=== PATIENT | male | born 1945 | race Caucasian/White ===

== ENCOUNTER 2019-09-01 16:37 | Emergency (ER) | payer OTHER ==
[~2019-09-01] VITALS: Ht 175.3 cm; Wt 90.7 kg
[2019-09-01 18:17] LABS: Basophils # (auto) 0 10 ^3/uL (0-0.2); Basophils % (auto) 0.5 % (0.0-2.0); Eosinophils # (auto) 0 10 ^3/uL (0-0.8); Eosinophils % (auto) 0.5 % (0.0-7.0); Hematocrit 43.2 % (41.0-53.0); Hemoglobin 14.7 g/dL (13.5-17.5); Lymphocytes % (auto) 12.8 % (10.0-50.0); Mean Corpuscular Hemoglobin 31.3 pg (28.0-32.0); Monocytes # (auto) 0.5 10 ^3/uL (0-1.3); Monocytes % (auto) 6.1 % (0.0-12.0); Neutrophils # (auto) 6.1 10 ^3/uL (1.6-8.6); Neutrophils % (auto) 80.1 % (37.0-80.0); Nucleated Red Blood Cells % 0.1 %; Platelet Count (auto) 135 10^3/uL (140-450); Red Cell Distribution Width 13.1 % (11.8-14.3); White Blood Cell 7.6 10^3/uL (4.4-10.8)
[2019-09-01 18:32] LABS: Albumin 3.5 g/dL (3.4-5.0); Anion Gap 4 (5-15); Blood Urea Nitrogen 21 mg/dL (7-18); Calcium 8.6 mg/dL (8.5-10.1); Carbon Dioxide 29 mmol/L (21-32); Chloride 106 mmol/L (98-107); Glucose 168 mg/dL (74-106); INR 1.11 (0.9-1.15); Partial Thromboplastin Time 26.5 sec (23.64-32.05); Potassium 3.5 mmol/L (3.5-5.1); Sodium 139 mmol/L (136-145)
[2019-09-01 18:34] LABS: Alanine Aminotransferase 15 U/L (16-61); Aspartate Aminotransferase 16 U/L (15-37); BUN/Creatinine Ratio 21.4; GFR African American 96 mL/min; GFR Non-African American 79 mL/min
[2019-09-01 18:39] LABS: Alkaline Phosphatase 83 U/L (45-117); Bilirubin, Total 0.8 mg/dL (0.2-1.0); Total Protein 7.9 g/dL (6.4-8.2)
[2019-09-01 22:48] VITALS: BP 138/88
[2019-09-01] MEDS ORDERED: LIDOCAINE VISCOUS 2% 15ML UD MT ONE (23:00)
[2019-09-01] MEDS ORDERED: ALUM & MAG HYDROX-SIMETH LIQ(MAALOX) 30 ML PO ONE (23:00)
[2019-09-01] MEDS ORDERED: FAMOTIDINE 20 MG TAB PO ONE (23:00)
== END 2019-09-01 23:39 | disposition home or self-care (01) ==
LOC: ER 16:37 → EDBD 16:37 → ER 23:39
DX: R10.13 Epigastric pain (principal); I10 Essential (primary) hypertension; E78.5 Hyperlipidemia, unspecified; E11.9 Type 2 diabetes mellitus without complications
CPT/HCPCS: 36415; 71045; 80053; 83880; 84484; 85025; 85610; 85730; 93005

== ENCOUNTER 2019-12-12 11:29 | Emergency (ER) | payer OTHER ==
[~2019-12-12] VITALS: Ht 172.7 cm; Wt 81.6 kg
[2019-12-12 11:44] VITALS: BP 165/93
[2019-12-12] MEDS ORDERED: SODIUM CHLORIDE 0.9% 1,000 ML IVB ONE (11:47)
[2019-12-12 12:56] LABS: Basophils # (auto) 0 10 ^3/uL (0-0.2); Basophils % (auto) 0.3 % (0.0-2.0); Eosinophils # (auto) 0 10 ^3/uL (0-0.8); Eosinophils % (auto) 0.4 % (0.0-7.0); Hematocrit 41.7 % (41.0-53.0); Lymphocytes # (auto) 1.2 10 ^3/uL (0.4-5.4); Lymphocytes % (auto) 15.1 % (10.0-50.0); Mean Corpuscular Hemoglobin 30.9 pg (28.0-32.0); Mean Corpuscular Hgb Conc. 33.5 g/dL (32.0-36.0); Mean Corpuscular Volume 92.3 fL (80.0-100.0); Monocytes # (auto) 0.4 10 ^3/uL (0-1.3); Monocytes % (auto) 5.5 % (0.0-12.0); Neutrophils # (auto) 6.2 10 ^3/uL (1.6-8.6); Neutrophils % (auto) 78.7 % (37.0-80.0); Nucleated Red Blood Cells % 0.1 %; Platelet Count (auto) 138 10^3/uL (140-450); Red Blood Cells 4.51 10^6/uL (4.5-5.90); Red Cell Distribution Width 13.6 % (11.8-14.3); White Blood Cell 7.8 10^3/uL (4.4-10.8)
[2019-12-12 13:05] LABS: Partial Thromboplastin Time 27.3 sec (23.64-32.05)
[2019-12-12 13:15] LABS: Albumin 3.3 g/dL (3.4-5.0); Anion Gap 2 (5-15); Blood Urea Nitrogen 13 mg/dL (7-18); Calcium 8.1 mg/dL (8.5-10.1); Carbon Dioxide 33 mmol/L (21-32); Chloride 105 mmol/L (98-107); Glucose 208 mg/dL (74-106); Lipase 69 U/L (73-393); Sodium 140 mmol/L (136-145)
[2019-12-12 13:21] LABS: Alanine Aminotransferase 19 U/L (16-61); Alkaline Phosphatase 75 U/L (45-117); Aspartate Aminotransferase 15 U/L (15-37); Bilirubin, Total 0.2 mg/dL (0.2-1.0); GFR African American 93 mL/min; GFR Non-African American 77 mL/min; Total Protein 7.1 g/dL (6.4-8.2)
== END 2019-12-12 15:26 | disposition home or self-care (01) ==
LOC: EDBD 11:29 → ER 11:29
DX: K80.20 Calculus of gallbladder without cholecystitis without obstruction (principal); E86.0 Dehydration; E11.9 Type 2 diabetes mellitus without complications; K21.9 Gastro-esophageal reflux disease without esophagitis
CPT/HCPCS: 36415; 74176; 80053; 83690; 84484; 85025; 85610; 85730; 93005; 96360; 99285; J7030

== ENCOUNTER 2020-02-13 16:47 | Inpatient (IN) | payer OTHER ==
[~2020-02-13] VITALS: Ht 175.3 cm; Wt 78.7 kg
[2020-02-13 17:56] LABS: Basophils # (auto) 0 10 ^3/uL (0-0.2); Basophils % (auto) 0.4 % (0.0-2.0); Eosinophils # (auto) 0 10 ^3/uL (0-0.8); Eosinophils % (auto) 0.5 % (0.0-7.0); Hematocrit 45.6 % (41.0-53.0); Hemoglobin 15.2 g/dL (13.5-17.5); Lymphocytes # (auto) 1.5 10 ^3/uL (0.4-5.4); Lymphocytes % (auto) 17.2 % (10.0-50.0); Mean Corpuscular Hemoglobin 31.2 pg (28.0-32.0); Mean Corpuscular Hgb Conc. 33.3 g/dL (32.0-36.0); Mean Corpuscular Volume 93.8 fL (80.0-100.0); Monocytes # (auto) 0.6 10 ^3/uL (0-1.3); Monocytes % (auto) 7.4 % (0.0-12.0); Neutrophils # (auto) 6.4 10 ^3/uL (1.6-8.6); Neutrophils % (auto) 74.5 % (37.0-80.0); Nucleated Red Blood Cells % 0.8 %; Platelet Count (auto) 172 10^3/uL (140-450); Red Blood Cells 4.86 10^6/uL (4.5-5.90); Red Cell Distribution Width 13.2 % (11.8-14.3); White Blood Cell 8.6 10^3/uL (4.4-10.8)
[2020-02-13 18:12] LABS: Albumin 3.8 g/dL (3.4-5.0); BUN/Creatinine Ratio 18.5; Calcium 8.9 mg/dL (8.5-10.1); Magnesium 2.2 mg/dL (1.6-2.6); Potassium 3.7 mmol/L (3.5-5.1)
[2020-02-13 18:15] LABS: INR 1.02 (0.9-1.15); Partial Thromboplastin Time 26.4 sec (23.0-31.2)
[2020-02-13 18:17] LABS: Bilirubin, Total 0.6 mg/dL (0.2-1.0); Total Protein 8.1 g/dL (6.4-8.2)
[2020-02-13 19:16] LABS: Urine Bacteria NONE SEEN /hpf (None Seen); Urine Blood Negative /uL (Negative); Urine Hyaline Cast MOD /lpf (0 - 2); Urine Mucus FEW (None Seen); Urine WBC 1 /hpf (0 - 3)
[2020-02-13] MEDS ORDERED: levoFLOXacin 750MG 150 ML IV ONE (20:00)
[2020-02-13] MEDS ORDERED: ONDANSETRON HCL 4 MG/2 ML VIAL IV ONE (20:15)
[2020-02-13] MEDS ORDERED: MORPHINE SULFATE 4 MG/ML SYR/VIAL IV ONE (20:15)
[2020-02-13 20:19] LABS: CRP High Sensitivity 0.021 mg/dL (< 0.3)
[2020-02-13] MEDS ORDERED: DEXTROSE (50%) 50ML SYRG IV PRN (21:00)
[2020-02-13] MEDS ORDERED: MORPHINE SULF INJ 2 MG/ML SYRINGE 1ML IV PRN (21:00)
[2020-02-13] MEDS ORDERED: SODIUM CHLORIDE 0.9% 500 ML IV ONE (21:00)
[2020-02-13] MEDS ORDERED: TEMAZEPAM 15 MG CAP PO PRN (21:00)
[2020-02-13] MEDS ORDERED: NITROGLYCERIN 0.4 MG SL TAB SL PRN (21:00)
[2020-02-13] MEDS ORDERED: ACETAMINOPHEN 325 MG TAB PO PRN (21:00)
[2020-02-13] MEDS ORDERED: ONDANSETRON HCL 4 MG/2 ML VIAL IV PRN (21:00)
[2020-02-13 22:30] VITALS: BP 133/88
--- NOTE | 2020-02-13 22:30 | NUR ---
Telemetry admit from ER TORRESSHARDA admitted to Telemetry unit. Patient oriented to Carlita Belcher RN primary RN, unit, room, bed, and unit policies regarding patient care and visiting hours. Patient now on continuous telemetry monitoring, tele box #38 and telemetry reading on arrival to unit is SR. Patient placed on bedside oxygen 2L NC, weighed by bedscale and encouraged to call if they need something. All questions and concerns addressed, patient verbalized understanding. Fall and safety precautions in place. Call light within reach.
[2020-02-13] MEDS: ATORVASTATIN 20 MG TAB PO SCH (22:51)
[2020-02-13] MEDS: ACCU-CHEK COMFORT CURVE STRIP VI SCH (22:51)
[2020-02-13] MEDS: InsuLIN REG 1unit/0.01ml Soln (100units/ml) SC SCH (23:06)
[2020-02-14 05:27] VITALS: BP 109/71
[2020-02-14 05:31] LABS: Basophils # (auto) 0 10 ^3/uL (0-0.2); Basophils % (auto) 0.7 % (0.0-2.0); Eosinophils # (auto) 0.1 10 ^3/uL (0-0.8); Eosinophils % (auto) 1.2 % (0.0-7.0); Hematocrit 42.6 % (41.0-53.0); Hemoglobin 14.2 g/dL (13.5-17.5); Lymphocytes # (auto) 1.8 10 ^3/uL (0.4-5.4); Lymphocytes % (auto) 26.5 % (10.0-50.0); Mean Corpuscular Hemoglobin 31.5 pg (28.0-32.0); Mean Corpuscular Hgb Conc. 33.3 g/dL (32.0-36.0); Mean Corpuscular Volume 94.8 fL (80.0-100.0); Monocytes # (auto) 0.6 10 ^3/uL (0-1.3); Monocytes % (auto) 8.5 % (0.0-12.0); Neutrophils # (auto) 4.2 10 ^3/uL (1.6-8.6); Neutrophils % (auto) 63.1 % (37.0-80.0); Nucleated Red Blood Cells % 0.1 %; Platelet Count (auto) 136 10^3/uL (140-450); Red Cell Distribution Width 13.4 % (11.8-14.3); White Blood Cell 6.7 10^3/uL (4.4-10.8)
[2020-02-14 05:45] LABS: BUN/Creatinine Ratio 26.4; Calcium 8.3 mg/dL (8.5-10.1); Potassium 3.9 mmol/L (3.5-5.1)
[2020-02-14] MEDS: InsuLIN REG 1unit/0.01ml Soln (100units/ml) SC SCH ×4 (06:28→22:23)
[2020-02-14] MEDS: ACCU-CHEK COMFORT CURVE STRIP VI SCH ×4 (06:28→22:19)
--- NOTE | 2020-02-14 07:35 | NUR ---
Opening shift note Assumed care of patient from NOC RN Carlita. Patient is AOX4 no s/s of distress noted. Bed is in lowest locked position, side rails up x2, and call light is within reach. Updated patient on plan of care and patient verbalized understanding. Will continue to monitor q1hr and PRN.
[2020-02-14 08:48] VITALS: BP 96/67
[2020-02-14] MEDS: ASPirin 81 mg TAB PO SCH (09:50)
[2020-02-14] MEDS: levoFLOXacin 500MG 100 ML IV SCH (09:50)
--- NOTE | 2020-02-14 11:59 | NUR ---
complaint of pain patient stated having a pain level of 5/10. Will notify MD of higher level of pain, patient does not have PRN pain medications for higher level of pain. Will continue to monitor.
[2020-02-14 12:57] VITALS: BP 112/85
[2020-02-14] MEDS ORDERED: PANTOPRAZOLE 40 MG TAB PO ONE (15:15)
[2020-02-14] MEDS ORDERED: ALBUTEROL SULF 2.5 MG/0.5ML(0.5%) NEB SOLN NEB PRN (15:15)
[2020-02-14] MEDS ORDERED: ALUM & MAG HYDROX-SIMETH LIQ(MAALOX) 30 ML PO PRN ×2 (15:15→15:45)
--- NOTE | 2020-02-14 16:38 | NUR ---
Care endorsed. report given to ANNAMARIE Pulliam.
[2020-02-14 16:50] VITALS: BP 122/82
--- NOTE | 2020-02-14 17:00 | NUR ---
PT ARRIVED FROM [facility] THE COVID UNIT VIA WHEEL CHAIR, ROOM AIR, NO DISTRESS NOTED, TO ROOM 223A, PT WAS ABLE TO GET UP AND GET IN BED, DENIES ANY CHEST PAIN OR SHORTNESS OF BED, ROOM ORIENTATION GIVEN TO PT, CALL LIGHT WITHIN REACH
--- NOTE | 2020-02-14 17:02 | NUR ---
Transfer Patient was transferred to [facility] room 223a via wheelchair, accompanied by ANNAMARIE Pulliam. No s/s of distress or SOB noted at time of departure.
--- NOTE | 2020-02-14 17:15 | NUR ---
BM PT WAS ABLE TO GET OUT OF BED AND AMBULATE TO BATHROOM TO HAVE BM, AND BACK TO BED, NO DISTRESS NOTED, CONTINUE MONITORING
--- NOTE | 2020-02-14 18:32 | NUR ---
PT IS SITTING UP EATING DINNER, PT CONTINUE STABLE,CONTINUE MONITORING
[2020-02-14 21:39] VITALS: BP 107/64
[2020-02-14 21:55] VITALS: BP 107/64
--- NOTE | 2020-02-14 22:08 | NUR ---
PT ASSESSED FOR PRN MED NEB TX. SPO2 90% ON RA, HR 58. PT RESTING COMFORTABLY. NO RESPIRATORY DISTRESS NOTED. NO TX INDICATED. WILL CONTINUE TO MONITOR PT.
[2020-02-14] MEDS: ATORVASTATIN 20 MG TAB PO SCH (22:24)
--- NOTE | 2020-02-15 01:57 | NUR ---
1900. REPORT OBTAINED ON PATIENT. 1919. PATIENT SEEN IN HIS ROOM WAS IN BED AT SEMI-MORSE POSITION TALKING TO A RELATIVE. WAS NOT IN PAIN. WAS ALERT AND ORIENTED. MONITORING CONTINUES.
--- NOTE | 2020-02-15 02:01 | NUR ---
2200. PATIENT SLEEPING AT THIS TIME.
[2020-02-15 05:00] VITALS: BP 124/85
--- NOTE | 2020-02-15 06:21 | NUR ---
Respiratory note: ASSESSED PT FOR PRN MED NEB AT THIS TIME, PT SLEEPING AT THIS TIME, NO RESP DISTRESS NOTED, NO TX INDICATED. PULSE OX 96% ON RA, HR 57, RR 20, BILATERAL BS SONOROUS.
[2020-02-15] MEDS: ACCU-CHEK COMFORT CURVE STRIP VI SCH ×2 (06:34→11:16)
[2020-02-15] MEDS: InsuLIN REG 1unit/0.01ml Soln (100units/ml) SC SCH ×2 (06:39→11:24)
--- NOTE | 2020-02-15 08:00 | NUR ---
ASSESSMENT NOTE PT IS ALERT ORIENTED X4, RESTING IN BED COMFORTABLY, NO DISTRESS NOTED, ABLE TO SELF REPOSITION AND VERBALIS HIS NEEDS, DENIES ANY PAIN AT THIS TIME, CALL LIGHT WITHIN REACH
[2020-02-15 08:08] LABS: Cholesterol 146 mg/dL (< 200)
[2020-02-15 08:12] LABS: HDL Cholesterol 48 mg/dL (40-59); LDL Cholesterol 88 mg/dL (< 100); Triglycerides 130 mg/dL (< 150)
[2020-02-15 09:00] VITALS: BP 96/62
[2020-02-15] MEDS: levoFLOXacin 500MG 100 ML IV SCH (09:43)
[2020-02-15] MEDS: ASPirin 81 mg TAB PO SCH (09:43)
[2020-02-15] MEDS ORDERED: PANTOPRAZOLE 40 MG TAB PO SCH (10:00)
--- NOTE | 2020-02-15 11:00 | NUR ---
WAFER FABRICATOR AT BED SIDE
--- NOTE | 2020-02-15 11:45 | NUR ---
DR CARDENAS AT BED SIDE FOLLOWING UP ON PT WITH DISCHARGE HOME INSTRUCTION, PT STATED I WANT TO TAKE CARE OF THIS > PT WAS POINTING AT HIS BOTH GREAT TOE NAILS, THEY ARE VERY THICK NAIL FUNGI, DR CARDENAS INFORM PT TO CALL [facility] TOMOR[facility] AND LET THEM KNOW AND THEY WILL GIVE HIM EITHER AN APPOINTMENT OR HAVE HIM TO WALK IN, PT VERBALIS , DR CARDENAS INFORM PT THAT HE HAS AN ACID REFLUX NAD HE WILL GOING TO WRITE DOWN SOME PRESCRIPTION , SAME MEDICATION LIKE HERE SINCE HE START TO FEEL MUCH BETTER AND DENIES ANY CHEST PAIN, DR CARDENAS ASK PT WHO WILL GOING TO PICK HIM UP PT STATED I WILL DRIVE MY SELF> DR CARDENAS INFORM PT THAT HE IS NOT ALLOWED TO DRIVE HIM SELF AT THIS POINT, WHAT ABOIT IF HE GOT DIZZY, PT AGREE TO CALL SOME FRIEND OR A FAMILY MEMBER
--- NOTE | 2020-02-15 12:45 | NUR ---
PATIENT CALLED HIS NEPHEW GABRIELA TO COME OVER AND FOLLOW HIM WHILE HE IS DRIVING HOME
--- NOTE | 2020-02-15 13:00 | NUR ---
ALL DISCHARGE INSTRUCTION READ BACK TO PT, PT VERBALIS UNDERSTANDING, ANSWER ALL PATIENT'S QUESTIONS
--- NOTE | 2020-02-15 13:04 | NUR ---
ENCOURAGE PT TO CALL HIS NEPHEW, GABRIELA ANSWER THE PHONE OVER THE PHONE SPEAKER AND SAID I AM IN MY WAY MARTINE, PT STATED I AM HEADING TO THE LOBBY RIGHT NOW PT LEFT VIA WHEELCHAIR, NO SHORTNESS OF BREATH NOTED, DENIES ANY CHEST PAIN
--- NOTE | 2020-02-15 13:05 | NUR ---
Discharge instructions given as ordered. Encourage to follow up with PMD as instructed. All questions and concerns addressed. Patient verbalized understanding. Medication reconciliation form completed and copy given to patient. IV removed with catheter intact, pressure dressing applied. Telemetry unit returned to ICU. Patient taken to vehicle via wheelchair with all personal belongings, accompanied by staff . No distress noted at time of departure.
== END 2020-02-15 13:05 | disposition home or self-care (01) | DRG 194 ==
LOC: ER 16:47 → TELE 16:48 → TELE-EAST 23:48 → TELE-CENTR 02-14 17:04
PROVIDERS: ADMIT Nurse Practitioner; ATTEND Nurse Practitioner
DX: J18.9 Pneumonia, unspecified organism (principal); N17.9 Acute kidney failure, unspecified; E11.9 Type 2 diabetes mellitus without complications; E78.5 Hyperlipidemia, unspecified; I10 Essential (primary) hypertension; K21.9 Gastro-esophageal reflux disease without esophagitis; Z79.82 Long term (current) use of aspirin; Z20.828 Contact with and (suspected) exposure to other viral communicable diseases
CPT/HCPCS: 36415; 71045; 80048; 80053; 80061; 81001; 82728; 82962; 83605; 83615; 83735; 83880; 84484; 85025; 85379; 85610; 85730; 86141; 87040; 87426; 93306; G0378; J1815; J1956; J2405

== ENCOUNTER 2020-04-06 13:07 | Emergency (ER) | payer OTHER ==
[~2020-04-06] VITALS: Ht 175.3 cm; Wt 90.7 kg
[2020-04-06 14:00] LABS: Basophils # (auto) 0 10 ^3/uL (0-0.2); Basophils % (auto) 0.5 % (0.0-2.0); Eosinophils # (auto) 0.1 10 ^3/uL (0-0.8); Eosinophils % (auto) 0.9 % (0.0-7.0); Hematocrit 43.2 % (41.0-53.0); Hemoglobin 14.7 g/dL (13.5-17.5); Lymphocytes # (auto) 1.2 10 ^3/uL (0.4-5.4); Lymphocytes % (auto) 18.9 % (10.0-50.0); Mean Corpuscular Hemoglobin 31.5 pg (28.0-32.0); Mean Corpuscular Volume 92.6 fL (80.0-100.0); Monocytes # (auto) 0.4 10 ^3/uL (0-1.3); Monocytes % (auto) 6.2 % (0.0-12.0); Neutrophils # (auto) 4.8 10 ^3/uL (1.6-8.6); Neutrophils % (auto) 73.5 % (37.0-80.0); Nucleated Red Blood Cells % 0.1 %; Platelet Count (auto) 148 10^3/uL (140-450); Red Blood Cells 4.67 10^6/uL (4.5-5.90); Red Cell Distribution Width 12.8 % (11.8-14.3); White Blood Cell 6.6 10^3/uL (4.4-10.8)
[2020-04-06 14:12] LABS: Chloride 106 mmol/L (98-107); Potassium 3.8 mmol/L (3.5-5.1); Sodium 140 mmol/L (136-145)
[2020-04-06 14:16] LABS: Alanine Aminotransferase 17 U/L (16-61); Albumin 3.7 g/dL (3.4-5.0); Anion Gap 5 (5-15); Aspartate Aminotransferase 12 U/L (15-37); BUN/Creatinine Ratio 15.5; Blood Urea Nitrogen 16 mg/dL (7-18); Carbon Dioxide 29 mmol/L (21-32); GFR African American 90 mL/min; GFR Non-African American 75 mL/min; Glucose 206 mg/dL (74-106); Magnesium 1.8 mg/dL (1.6-2.6)
[2020-04-06 14:21] LABS: Alkaline Phosphatase 77 U/L (45-117); Bilirubin, Total 0.4 mg/dL (0.2-1.0); Total Protein 7.6 g/dL (6.4-8.2)
[2020-04-06 15:09] VITALS: BP 135/82
== END 2020-04-06 16:11 | disposition home or self-care (01) ==
LOC: ER 13:07 → EDBD 13:07 → ER 16:11
DX: R07.89 Other chest pain (principal); R06.02 Shortness of breath; E11.9 Type 2 diabetes mellitus without complications; I10 Essential (primary) hypertension; K21.9 Gastro-esophageal reflux disease without esophagitis
CPT/HCPCS: 36415; 71045; 80053; 83735; 84484; 85025; 93005

== ENCOUNTER 2020-04-15 13:14 | Emergency (ER) | payer OTHER ==
[~2020-04-15] VITALS: Ht 175.3 cm; Wt 90.7 kg
[2020-04-15 14:38] LABS: Albumin 3.5 g/dL (3.4-5.0); Anion Gap 6 (5-15); Blood Urea Nitrogen 15 mg/dL (7-18); Calcium 8.8 mg/dL (8.5-10.1); Carbon Dioxide 26 mmol/L (21-32); Chloride 108 mmol/L (98-107); Glucose 229 mg/dL (74-106); Potassium 3.5 mmol/L (3.5-5.1); Sodium 140 mmol/L (136-145)
[2020-04-15 14:41] LABS: Alanine Aminotransferase 14 U/L (16-61); Aspartate Aminotransferase 14 U/L (15-37); GFR African American 93 mL/min; GFR Non-African American 77 mL/min
[2020-04-15 14:46] LABS: Alkaline Phosphatase 75 U/L (45-117); Bilirubin, Total 0.5 mg/dL (0.2-1.0); Total Protein 7.3 g/dL (6.4-8.2)
[2020-04-15 15:24] LABS: Basophils # (auto) 0.1 10 ^3/uL (0-0.2); Basophils % (auto) 0.7 % (0.0-2.0); Eosinophils # (auto) 0 10 ^3/uL (0-0.8); Eosinophils % (auto) 0.6 % (0.0-7.0); Hematocrit 40.1 % (41.0-53.0); Hemoglobin 13.8 g/dL (13.5-17.5); Lymphocytes # (auto) 1.4 10 ^3/uL (0.4-5.4); Mean Corpuscular Hemoglobin 31.9 pg (28.0-32.0); Mean Corpuscular Hgb Conc. 34.4 g/dL (32.0-36.0); Mean Corpuscular Volume 92.6 fL (80.0-100.0); Monocytes # (auto) 0.4 10 ^3/uL (0-1.3); Monocytes % (auto) 6.1 % (0.0-12.0); Neutrophils # (auto) 4.9 10 ^3/uL (1.6-8.6); Neutrophils % (auto) 72.6 % (37.0-80.0); Nucleated Red Blood Cells % 0.1 %; Platelet Count (auto) 150 10^3/uL (140-450); Red Blood Cells 4.33 10^6/uL (4.5-5.90); Red Cell Distribution Width 12.7 % (11.8-14.3); White Blood Cell 6.8 10^3/uL (4.4-10.8)
[2020-04-15] MEDS: cloNIDine HCL 0.1 MG TAB PO ONE ×2 (17:56→17:59)
[2020-04-15 20:41] VITALS: BP 144/76
== END 2020-04-15 20:45 | disposition short-term general hospital (02) ==
LOC: ER 13:14
DX: J98.2 Interstitial emphysema (principal); R06.6 Hiccough; F41.9 Anxiety disorder, unspecified; E11.9 Type 2 diabetes mellitus without complications; K21.9 Gastro-esophageal reflux disease without esophagitis; I10 Essential (primary) hypertension
CPT/HCPCS: 36415; 71250; 80053; 83880; 84484; 85025; 93005

== ENCOUNTER 2020-08-13 11:23 | Inpatient (IN) | payer OTHER ==
[~2020-08-13] VITALS: Ht 175.3 cm; Wt 77.8 kg
[2020-08-13 12:42] LABS: Basophils # (auto) 0 10 ^3/uL (0-0.2); Basophils % (auto) 0.4 % (0.0-2.0); Eosinophils # (auto) 0 10 ^3/uL (0-0.8); Eosinophils % (auto) 0.8 % (0.0-7.0); Hematocrit 41.6 % (41.0-53.0); Hemoglobin 14.2 g/dL (13.5-17.5); Lymphocytes # (auto) 1.1 10 ^3/uL (0.4-5.4); Lymphocytes % (auto) 19.3 % (10.0-50.0); Mean Corpuscular Hemoglobin 31.4 pg (28.0-32.0); Mean Corpuscular Hgb Conc. 34.1 g/dL (32.0-36.0); Mean Corpuscular Volume 92.1 fL (80.0-100.0); Monocytes # (auto) 0.3 10 ^3/uL (0-1.3); Neutrophils % (auto) 74.5 % (37.0-80.0); Nucleated Red Blood Cells % 0.1 %; Platelet Count (auto) 176 10^3/uL (140-450); Red Blood Cells 4.51 10^6/uL (4.5-5.90); Red Cell Distribution Width 12.7 % (11.8-14.3); White Blood Cell 5.4 10^3/uL (4.4-10.8)
[2020-08-13 12:53] LABS: Albumin 3.4 g/dL (3.4-5.0); Anion Gap 3 (5-15); Blood Urea Nitrogen 20 mg/dL (7-18); Calcium 8.2 mg/dL (8.5-10.1); Carbon Dioxide 29 mmol/L (21-32); Chloride 107 mmol/L (98-107); Glucose 204 mg/dL (74-106); Magnesium 2.2 mg/dL (1.6-2.6); Potassium 3.8 mmol/L (3.5-5.1); Sodium 139 mmol/L (136-145)
[2020-08-13 12:59] LABS: Alanine Aminotransferase 18 U/L (16-61); Alkaline Phosphatase 74 U/L (45-117); Aspartate Aminotransferase 16 U/L (15-37); BUN/Creatinine Ratio 18.7; Bilirubin, Total 0.4 mg/dL (0.2-1.0); GFR African American 86 mL/min; GFR Non-African American 71 mL/min; Total Protein 7.7 g/dL (6.4-8.2)
[2020-08-13] MEDS ORDERED: ASPirin 81 mg TAB PO ONE (15:15)
[2020-08-13] MEDS ORDERED: MORPHINE SULF INJ 2 MG/ML SYRINGE 1ML IV PRN ×2 (15:15→16:00)
[2020-08-13] MEDS ORDERED: NITROGLYCERIN 0.4 MG SL TAB SL PRN (15:15)
[2020-08-13] MEDS: SODIUM CHLORIDE 0.9% 1,000 ML IV SCH (16:00)
[2020-08-13] MEDS ORDERED: ALBUTEROL SULF 2.5 MG/0.5ML(0.5%) NEB SOLN NEB PRN (16:00)
[2020-08-13] MEDS ORDERED: LACTULOSE 20Gm/30ML SOLN PO PRN ×3 (16:00)
[2020-08-13] MEDS ORDERED: ACETAMINOPHEN 500 MG TAB PO PRN (16:00)
[2020-08-13] MEDS: DOXYCYCLINE 100MG/250ML 250 ML IV SCH (16:00)
[2020-08-13] MEDS ORDERED: DEXTROSE (50%) 50ML SYRG IV PRN (16:00)
[2020-08-13] MEDS: ACCU-CHEK COMFORT CURVE STRIP VI SCH ×2 (17:15→22:50)
[2020-08-13] MEDS: InsuLIN REG 1unit/0.01ml Soln (100units/ml) SC SCH ×2 (17:15→22:00)
[2020-08-13] MEDS: ATORVASTATIN 20 MG TAB PO SCH (22:53)
[2020-08-14] MEDS: DOXYCYCLINE 100MG/250ML 250 ML IV SCH ×2 (04:08→16:10)
[2020-08-14] MEDS: SODIUM CHLORIDE 0.9% 1,000 ML IV SCH (05:20)
[2020-08-14 06:39] LABS: Basophils # (auto) 0 10 ^3/uL (0-0.2); Basophils % (auto) 0.8 % (0.0-2.0); Eosinophils # (auto) 0.1 10 ^3/uL (0-0.8); Eosinophils % (auto) 1.2 % (0.0-7.0); Hematocrit 39.4 % (41.0-53.0); Hemoglobin 13.9 g/dL (13.5-17.5); Lymphocytes % (auto) 20.8 % (10.0-50.0); Mean Corpuscular Hemoglobin 32.2 pg (28.0-32.0); Mean Corpuscular Hgb Conc. 35.3 g/dL (32.0-36.0); Mean Corpuscular Volume 91.1 fL (80.0-100.0); Monocytes # (auto) 0.3 10 ^3/uL (0-1.3); Neutrophils # (auto) 3.3 10 ^3/uL (1.6-8.6); Neutrophils % (auto) 71.2 % (37.0-80.0); Nucleated Red Blood Cells % 0.1 %; Platelet Count (auto) 148 10^3/uL (140-450); Red Blood Cells 4.32 10^6/uL (4.5-5.90); Red Cell Distribution Width 12.7 % (11.8-14.3); White Blood Cell 4.7 10^3/uL (4.4-10.8)
[2020-08-14] MEDS: InsuLIN REG 1unit/0.01ml Soln (100units/ml) SC SCH ×4 (07:00→22:00)
[2020-08-14 07:08] LABS: Calcium 8.2 mg/dL (8.5-10.1); Potassium 3.8 mmol/L (3.5-5.1)
[2020-08-14 07:14] LABS: BUN/Creatinine Ratio 19.8; Bilirubin, Total 0.7 mg/dL (0.2-1.0); Total Protein 6.9 g/dL (6.4-8.2)
[2020-08-14] MEDS: ACCU-CHEK COMFORT CURVE STRIP VI SCH ×4 (08:53→22:00)
[2020-08-14 09:00] VITALS: BP 150/7
[2020-08-14] MEDS: ASPirin 81 mg TAB PO SCH (10:22)
[2020-08-14] MEDS: ENOXAPARIN SOD 40 MG/0.4 ML SYRINGE SC SCH (10:23)
[2020-08-14] MEDS: ENALAPRIL MALEATE 2.5 MG TAB PO SCH (10:23)
[2020-08-14 10:30] VITALS: BP 150/54
[2020-08-14] MEDS: NITROGLYCERIN 0.2MG/HR TOPICAL PATCH TD SCH (10:30)
[2020-08-14 13:00] VITALS: BP 129/90
[2020-08-14 16:36] VITALS: BP 124/71
[2020-08-14 21:00] VITALS: BP 129/75
[2020-08-14] MEDS: ATORVASTATIN 20 MG TAB PO SCH (21:15)
[2020-08-14] MEDS: traMADol HCL 50 MG TAB PO PRN (21:15)
[2020-08-15] MEDS: DOXYCYCLINE 100MG/250ML 250 ML IV SCH ×2 (04:10→15:40)
[2020-08-15] MEDS: SODIUM CHLORIDE 0.9% 1,000 ML IV SCH (04:10)
[2020-08-15 04:38] VITALS: BP 127/72
[2020-08-15] MEDS: ACCU-CHEK COMFORT CURVE STRIP VI SCH ×4 (06:38→22:07)
[2020-08-15] MEDS: InsuLIN REG 1unit/0.01ml Soln (100units/ml) SC SCH ×4 (06:39→22:00)
[2020-08-15 08:00] VITALS: BP 128/87
[2020-08-15] MEDS: ASPirin 81 mg TAB PO SCH (10:53)
[2020-08-15] MEDS: ENOXAPARIN SOD 40 MG/0.4 ML SYRINGE SC SCH (10:54)
[2020-08-15] MEDS: ENALAPRIL MALEATE 2.5 MG TAB PO SCH (10:54)
[2020-08-15] MEDS: NITROGLYCERIN 0.2MG/HR TOPICAL PATCH TD SCH (11:03)
[2020-08-15 17:00] VITALS: BP 122/85
[2020-08-15] MEDS: metFORMIN HYDROCHLORIDE 500 MG TAB PO SCH (17:35)
[2020-08-15 22:00] VITALS: BP 117/81
[2020-08-15] MEDS: ATORVASTATIN 20 MG TAB PO SCH (22:07)
[2020-08-15] MEDS: traMADol HCL 50 MG TAB PO PRN (22:20)
[2020-08-16] MEDS: DOXYCYCLINE 100MG/250ML 250 ML IV SCH ×2 (03:59→16:00)
[2020-08-16 05:00] VITALS: BP 108/62
[2020-08-16] MEDS: InsuLIN REG 1unit/0.01ml Soln (100units/ml) SC SCH ×4 (06:45→22:18)
[2020-08-16] MEDS: ACCU-CHEK COMFORT CURVE STRIP VI SCH ×4 (06:45→22:18)
[2020-08-16] MEDS: metFORMIN HYDROCHLORIDE 500 MG TAB PO SCH ×2 (08:32→19:32)
[2020-08-16] MEDS: traMADol HCL 50 MG TAB PO PRN (08:33)
[2020-08-16 09:00] VITALS: BP 119/73
[2020-08-16] MEDS: NITROGLYCERIN 0.2MG/HR TOPICAL PATCH TD SCH (10:00)
[2020-08-16] MEDS: ASPirin 81 mg TAB PO SCH (11:18)
[2020-08-16] MEDS: ENOXAPARIN SOD 40 MG/0.4 ML SYRINGE SC SCH (11:19)
[2020-08-16] MEDS: ENALAPRIL MALEATE 2.5 MG TAB PO SCH (11:19)
[2020-08-16 12:57] VITALS: BP 122/81
[2020-08-16 17:00] VITALS: BP 113/63
[2020-08-16 20:00] VITALS: BP 124/74
[2020-08-16 22:00] VITALS: BP 124/74
[2020-08-16] MEDS: ATORVASTATIN 20 MG TAB PO SCH (22:00)
[2020-08-17] VITALS (8 sets, daily range): BP systolic 119–144; BP diastolic 71–86
[2020-08-17] MEDS: DOXYCYCLINE 100MG/250ML 250 ML IV SCH (03:51)
[2020-08-17] MEDS: ACCU-CHEK COMFORT CURVE STRIP VI SCH ×4 (06:50→22:00)
[2020-08-17] MEDS: InsuLIN REG 1unit/0.01ml Soln (100units/ml) SC SCH ×4 (06:50→22:00)
[2020-08-17] MEDS: traMADol HCL 50 MG TAB PO PRN ×3 (08:32→14:57)
[2020-08-17] MEDS: metFORMIN HYDROCHLORIDE 500 MG TAB PO SCH ×2 (08:32→18:44)
[2020-08-17] MEDS ORDERED: chlorproMAZINE HCL 25 MG/1 ML AMP IM PRN (09:30)
[2020-08-17] MEDS: ASPirin 81 mg TAB PO SCH (10:30)
[2020-08-17] MEDS: ENALAPRIL MALEATE 2.5 MG TAB PO SCH (10:30)
[2020-08-17] MEDS: ENOXAPARIN SOD 40 MG/0.4 ML SYRINGE SC SCH (10:31)
[2020-08-17] MEDS: NITROGLYCERIN 0.2MG/HR TOPICAL PATCH TD SCH (10:32)
[2020-08-17] MEDS: PANTOPRAZOLE 40 MG/10 ML VIAL INJ IV SCH ×2 (10:40→21:39)
[2020-08-17] MEDS ORDERED: ALPRAZolam 0.25 MG TAB PO PRN (12:45)
[2020-08-17] MEDS ORDERED: chlorproMAZINE HCL 25 MG TAB PO PRN (17:00)
[2020-08-17] MEDS: ATORVASTATIN 20 MG TAB PO SCH (22:00)
[2020-08-17] MEDS: DOXYCYCLINE 100 MG TAB/CAP PO SCH (22:41)
[2020-08-18 05:00] VITALS: BP 91/60
[2020-08-18 05:55] LABS: Basophils # (auto) 0 10 ^3/uL (0-0.2); Basophils % (auto) 0.6 % (0.0-2.0); Eosinophils # (auto) 0.1 10 ^3/uL (0-0.8); Eosinophils % (auto) 1.8 % (0.0-7.0); Hematocrit 37.9 % (41.0-53.0); Hemoglobin 13.1 g/dL (13.5-17.5); Lymphocytes # (auto) 1.1 10 ^3/uL (0.4-5.4); Mean Corpuscular Hemoglobin 31.8 pg (28.0-32.0); Mean Corpuscular Hgb Conc. 34.5 g/dL (32.0-36.0); Mean Corpuscular Volume 92.1 fL (80.0-100.0); Monocytes # (auto) 0.4 10 ^3/uL (0-1.3); Monocytes % (auto) 7.7 % (0.0-12.0); Neutrophils # (auto) 3.1 10 ^3/uL (1.6-8.6); Neutrophils % (auto) 65.9 % (37.0-80.0); Nucleated Red Blood Cells % 0.1 %; Platelet Count (auto) 141 10^3/uL (140-450); Red Blood Cells 4.11 10^6/uL (4.5-5.90); Red Cell Distribution Width 12.6 % (11.8-14.3); White Blood Cell 4.7 10^3/uL (4.4-10.8)
[2020-08-18 06:08] LABS: Potassium 3.8 mmol/L (3.5-5.1)
[2020-08-18 06:13] LABS: BUN/Creatinine Ratio 28.6; Calcium 8.2 mg/dL (8.5-10.1); Magnesium 1.9 mg/dL (1.6-2.6)
[2020-08-18] MEDS: ACCU-CHEK COMFORT CURVE STRIP VI SCH ×4 (06:46→21:43)
[2020-08-18] MEDS: InsuLIN REG 1unit/0.01ml Soln (100units/ml) SC SCH ×4 (06:46→21:43)
[2020-08-18 08:34] VITALS: BP 122/76
[2020-08-18] MEDS ORDERED: chlorproMAZINE HCL 25 MG TAB PO ONE (10:00)
[2020-08-18] MEDS: metFORMIN HYDROCHLORIDE 500 MG TAB PO SCH ×2 (10:04→17:30)
[2020-08-18] MEDS: NITROGLYCERIN 0.2MG/HR TOPICAL PATCH TD SCH (10:04)
[2020-08-18] MEDS: PANTOPRAZOLE 40 MG/10 ML VIAL INJ IV SCH ×2 (10:04→21:29)
[2020-08-18] MEDS: ENALAPRIL MALEATE 2.5 MG TAB PO SCH (10:04)
[2020-08-18] MEDS: ASPirin 81 mg TAB PO SCH (10:04)
[2020-08-18] MEDS: DOXYCYCLINE 100 MG TAB/CAP PO SCH ×2 (10:04→21:58)
[2020-08-18] MEDS: ENOXAPARIN SOD 40 MG/0.4 ML SYRINGE SC SCH (10:04)
[2020-08-18 13:55] VITALS: BP 134/83
[2020-08-18] MEDS: chlorproMAZINE HCL 25 MG TAB PO SCH ×2 (15:15→22:10)
[2020-08-18 16:52] VITALS: BP 114/67
[2020-08-18] MEDS: ATORVASTATIN 20 MG TAB PO SCH (21:58)
[2020-08-18 22:00] VITALS: BP 91/55
[2020-08-19 05:00] VITALS: BP 96/62
[2020-08-19] MEDS: chlorproMAZINE HCL 25 MG TAB PO SCH ×3 (06:24→21:27)
[2020-08-19] MEDS: ACCU-CHEK COMFORT CURVE STRIP VI SCH ×4 (06:30→21:27)
[2020-08-19] MEDS: InsuLIN REG 1unit/0.01ml Soln (100units/ml) SC SCH ×4 (06:31→21:28)
[2020-08-19] MEDS: metFORMIN HYDROCHLORIDE 500 MG TAB PO SCH ×2 (08:18→17:56)
[2020-08-19 09:00] VITALS: BP 105/64
[2020-08-19] MEDS: ASPirin 81 mg TAB PO SCH (09:26)
[2020-08-19] MEDS: PANTOPRAZOLE 40 MG/10 ML VIAL INJ IV SCH ×2 (09:26→21:27)
[2020-08-19] MEDS: ENALAPRIL MALEATE 2.5 MG TAB PO SCH (09:27)
[2020-08-19] MEDS: ENOXAPARIN SOD 40 MG/0.4 ML SYRINGE SC SCH (09:27)
[2020-08-19] MEDS: NITROGLYCERIN 0.2MG/HR TOPICAL PATCH TD SCH (09:27)
[2020-08-19] MEDS: DOXYCYCLINE 100 MG TAB/CAP PO SCH ×2 (09:27→21:27)
[2020-08-19 13:00] VITALS: BP 115/62
[2020-08-19 17:00] VITALS: BP 103/63
[2020-08-19] MEDS: ATORVASTATIN 20 MG TAB PO SCH (21:27)
[2020-08-19 22:22] VITALS: BP 127/69
[2020-08-20 05:00] VITALS: BP 112/72
[2020-08-20] MEDS: ACCU-CHEK COMFORT CURVE STRIP VI SCH ×4 (05:58→21:51)
[2020-08-20] MEDS: chlorproMAZINE HCL 25 MG TAB PO SCH ×3 (05:58→21:51)
[2020-08-20] MEDS: InsuLIN REG 1unit/0.01ml Soln (100units/ml) SC SCH ×4 (06:24→22:29)
[2020-08-20 08:33] VITALS: BP 110/76
[2020-08-20] MEDS: metFORMIN HYDROCHLORIDE 500 MG TAB PO SCH ×2 (09:03→17:38)
[2020-08-20] MEDS: NITROGLYCERIN 0.2MG/HR TOPICAL PATCH TD SCH (10:00)
[2020-08-20] MEDS: PANTOPRAZOLE 40 MG/10 ML VIAL INJ IV SCH ×2 (10:09→21:50)
[2020-08-20] MEDS: ASPirin 81 mg TAB PO SCH (10:09)
[2020-08-20] MEDS: ENALAPRIL MALEATE 2.5 MG TAB PO SCH (10:10)
[2020-08-20] MEDS: ENOXAPARIN SOD 40 MG/0.4 ML SYRINGE SC SCH (10:11)
[2020-08-20 11:00] VITALS: BP 110/76
[2020-08-20 14:35] VITALS: BP 101/69
[2020-08-20] MEDS: ATORVASTATIN 20 MG TAB PO SCH (21:50)
[2020-08-20 22:00] VITALS: BP 101/69
[2020-08-21 05:00] VITALS: BP 82/45
[2020-08-21] MEDS: chlorproMAZINE HCL 25 MG TAB PO SCH ×3 (05:52→21:32)
[2020-08-21] MEDS: ACCU-CHEK COMFORT CURVE STRIP VI SCH ×4 (06:06→21:32)
[2020-08-21] MEDS: InsuLIN REG 1unit/0.01ml Soln (100units/ml) SC SCH ×4 (06:38→21:32)
[2020-08-21] MEDS: metFORMIN HYDROCHLORIDE 500 MG TAB PO SCH ×2 (08:12→17:36)
[2020-08-21 08:50] VITALS: BP 113/76
[2020-08-21] MEDS: ASPirin 81 mg TAB PO SCH (09:25)
[2020-08-21] MEDS: ENALAPRIL MALEATE 2.5 MG TAB PO SCH (09:25)
[2020-08-21] MEDS: PANTOPRAZOLE 40 MG/10 ML VIAL INJ IV SCH ×2 (09:25→21:31)
[2020-08-21] MEDS: ENOXAPARIN SOD 40 MG/0.4 ML SYRINGE SC SCH (09:25)
[2020-08-21] MEDS: NITROGLYCERIN 0.2MG/HR TOPICAL PATCH TD SCH (09:26)
[2020-08-21 17:00] VITALS: BP 98/65
[2020-08-21] MEDS: ATORVASTATIN 20 MG TAB PO SCH (21:31)
[2020-08-21 22:00] VITALS: BP 100/72
[2020-08-22 05:00] VITALS: BP 98/69
[2020-08-22] MEDS: ACCU-CHEK COMFORT CURVE STRIP VI SCH ×4 (06:01→21:30)
[2020-08-22] MEDS: chlorproMAZINE HCL 25 MG TAB PO SCH ×3 (06:01→21:29)
[2020-08-22] MEDS: InsuLIN REG 1unit/0.01ml Soln (100units/ml) SC SCH ×4 (06:02→21:40)
[2020-08-22] MEDS: metFORMIN HYDROCHLORIDE 500 MG TAB PO SCH ×2 (08:12→17:52)
[2020-08-22 09:00] VITALS: BP 112/60
[2020-08-22] MEDS: ENALAPRIL MALEATE 2.5 MG TAB PO SCH (09:20)
[2020-08-22] MEDS: ASPirin 81 mg TAB PO SCH (09:20)
[2020-08-22] MEDS: PANTOPRAZOLE 40 MG/10 ML VIAL INJ IV SCH ×2 (09:20→21:29)
[2020-08-22] MEDS: NITROGLYCERIN 0.2MG/HR TOPICAL PATCH TD SCH (09:21)
[2020-08-22] MEDS: ENOXAPARIN SOD 40 MG/0.4 ML SYRINGE SC SCH (09:21)
[2020-08-22 13:00] VITALS: BP 120/80
[2020-08-22 17:00] VITALS: BP 112/69
[2020-08-22] MEDS: ATORVASTATIN 20 MG TAB PO SCH (21:30)
[2020-08-22 22:00] VITALS: BP 111/74
[2020-08-23 05:00] VITALS: BP 102/60
[2020-08-23] MEDS: chlorproMAZINE HCL 25 MG TAB PO SCH ×3 (06:01→21:38)
[2020-08-23] MEDS: ACCU-CHEK COMFORT CURVE STRIP VI SCH ×4 (06:06→21:33)
[2020-08-23] MEDS: InsuLIN REG 1unit/0.01ml Soln (100units/ml) SC SCH ×4 (06:06→21:33)
[2020-08-23] MEDS: metFORMIN HYDROCHLORIDE 500 MG TAB PO SCH ×2 (07:54→17:45)
[2020-08-23 09:00] VITALS: BP 105/56
[2020-08-23] MEDS: NITROGLYCERIN 0.2MG/HR TOPICAL PATCH TD SCH (09:35)
[2020-08-23] MEDS: ENALAPRIL MALEATE 2.5 MG TAB PO SCH (09:35)
[2020-08-23] MEDS: ENOXAPARIN SOD 40 MG/0.4 ML SYRINGE SC SCH (09:36)
[2020-08-23] MEDS: PANTOPRAZOLE 40 MG/10 ML VIAL INJ IV SCH ×2 (09:36→21:32)
[2020-08-23] MEDS: ASPirin 81 mg TAB PO SCH (09:36)
[2020-08-23] MEDS ORDERED: chlorproMAZINE HCL 25 MG/1 ML AMP IM ONE (12:00)
[2020-08-23 12:07] VITALS: BP 105/56
[2020-08-23 13:28] VITALS: BP 110/72
[2020-08-23 17:01] VITALS: BP 99/62
[2020-08-23 21:11] VITALS: BP 103/58
[2020-08-23] MEDS: ATORVASTATIN 20 MG TAB PO SCH (21:33)
[2020-08-24 04:39] VITALS: BP 128/80
[2020-08-24] MEDS: chlorproMAZINE HCL 25 MG TAB PO SCH ×3 (06:07→22:00)
[2020-08-24] MEDS: ACCU-CHEK COMFORT CURVE STRIP VI SCH ×4 (06:08→22:03)
[2020-08-24] MEDS: InsuLIN REG 1unit/0.01ml Soln (100units/ml) SC SCH ×4 (06:10→22:16)
[2020-08-24 07:00] LABS: Basophils # (auto) 0 10 ^3/uL (0-0.2); Basophils % (auto) 0.9 % (0.0-2.0); Eosinophils # (auto) 0.1 10 ^3/uL (0-0.8); Eosinophils % (auto) 1.9 % (0.0-7.0); Hematocrit 39.8 % (41.0-53.0); Hemoglobin 13.7 g/dL (13.5-17.5); Lymphocytes # (auto) 1.1 10 ^3/uL (0.4-5.4); Lymphocytes % (auto) 20.8 % (10.0-50.0); Mean Corpuscular Hemoglobin 31.9 pg (28.0-32.0); Mean Corpuscular Hgb Conc. 34.5 g/dL (32.0-36.0); Mean Corpuscular Volume 92.3 fL (80.0-100.0); Monocytes # (auto) 0.4 10 ^3/uL (0-1.3); Monocytes % (auto) 7.4 % (0.0-12.0); Neutrophils # (auto) 3.5 10 ^3/uL (1.6-8.6); Platelet Count (auto) 149 10^3/uL (140-450); Red Cell Distribution Width 12.9 % (11.8-14.3); White Blood Cell 5.1 10^3/uL (4.4-10.8)
[2020-08-24 07:04] LABS: Potassium 4.3 mmol/L (3.5-5.1)
[2020-08-24 07:13] LABS: BUN/Creatinine Ratio 44.5; Calcium 9.6 mg/dL (8.5-10.1); Magnesium 1.9 mg/dL (1.6-2.6)
[2020-08-24 09:00] VITALS: BP 103/75
[2020-08-24] MEDS: metFORMIN HYDROCHLORIDE 500 MG TAB PO SCH ×2 (09:38→17:55)
[2020-08-24] MEDS: PANTOPRAZOLE 40 MG/10 ML VIAL INJ IV SCH ×2 (09:38→22:02)
[2020-08-24] MEDS: ASPirin 81 mg TAB PO SCH (09:38)
[2020-08-24] MEDS: ENALAPRIL MALEATE 2.5 MG TAB PO SCH (09:39)
[2020-08-24] MEDS: ENOXAPARIN SOD 40 MG/0.4 ML SYRINGE SC SCH (09:39)
[2020-08-24] MEDS: NITROGLYCERIN 0.2MG/HR TOPICAL PATCH TD SCH (09:40)
[2020-08-24 13:00] VITALS: BP 101/66
[2020-08-24 17:00] VITALS: BP 132/90
[2020-08-24 20:00] VITALS: BP 83/59
[2020-08-24 22:00] VITALS: BP 83/59
[2020-08-24] MEDS: ATORVASTATIN 20 MG TAB PO SCH (22:02)
[2020-08-24] MEDS ORDERED: ALBUMIN 5% 250 ML IV ONE (22:45)
[2020-08-25 05:00] VITALS: BP 89/62
[2020-08-25] MEDS: chlorproMAZINE HCL 25 MG TAB PO SCH ×3 (05:40→22:18)
[2020-08-25] MEDS: ACCU-CHEK COMFORT CURVE STRIP VI SCH ×4 (06:26→22:13)
[2020-08-25] MEDS: InsuLIN REG 1unit/0.01ml Soln (100units/ml) SC SCH ×4 (06:28→22:00)
[2020-08-25 08:55] VITALS: BP 100/61
[2020-08-25] MEDS: metFORMIN HYDROCHLORIDE 500 MG TAB PO SCH ×2 (08:58→18:43)
[2020-08-25] MEDS: ASPirin 81 mg TAB PO SCH (09:59)
[2020-08-25] MEDS: PANTOPRAZOLE 40 MG/10 ML VIAL INJ IV SCH ×2 (09:59→22:20)
[2020-08-25] MEDS: ENOXAPARIN SOD 40 MG/0.4 ML SYRINGE SC SCH (09:59)
[2020-08-25] MEDS: NITROGLYCERIN 0.2MG/HR TOPICAL PATCH TD SCH (09:59)
[2020-08-25] MEDS: ENALAPRIL MALEATE 2.5 MG TAB PO SCH (10:00)
[2020-08-25 11:43] LABS: INR 1.12 (0.9-1.15)
[2020-08-25 13:02] VITALS: BP 93/58
[2020-08-25] MEDS: BACLOFEN 10 MG TAB PO SCH ×2 (14:27→22:18)
[2020-08-25 17:06] VITALS: BP 90/56
[2020-08-25 22:00] VITALS: BP 91/60
[2020-08-25] MEDS: ATORVASTATIN 20 MG TAB PO SCH (22:18)
[2020-08-26 04:57] VITALS: BP 106/68
[2020-08-26] MEDS: chlorproMAZINE HCL 25 MG TAB PO SCH (05:42)
[2020-08-26] MEDS: BACLOFEN 10 MG TAB PO SCH ×3 (05:42→21:12)
[2020-08-26] MEDS: ACCU-CHEK COMFORT CURVE STRIP VI SCH ×4 (06:37→21:13)
[2020-08-26] MEDS: InsuLIN REG 1unit/0.01ml Soln (100units/ml) SC SCH ×4 (06:37→21:14)
[2020-08-26 08:00] VITALS: BP 112/76
[2020-08-26] MEDS: metFORMIN HYDROCHLORIDE 500 MG TAB PO SCH ×2 (08:00→18:35)
[2020-08-26] MEDS: PANTOPRAZOLE 40 MG/10 ML VIAL INJ IV SCH ×2 (08:20→21:12)
[2020-08-26] MEDS ORDERED: LIDOCAINE VISCOUS 2% 15ML UD ONE (08:32)
[2020-08-26] MEDS ORDERED: diphenhdrAMINE HCL 50 MG/1 ML VL ONE (08:33)
[2020-08-26] MEDS ORDERED: MIDAZOLAM HCL 5 MG/ML-1ML VIAL ONE (08:33)
[2020-08-26] MEDS ORDERED: fentaNYL CITRATE 100 MCG/2 ML VL ONE (08:33)
[2020-08-26] MEDS: ASPirin 81 mg TAB PO SCH (08:42)
[2020-08-26 09:00] VITALS: BP 112/76
[2020-08-26] MEDS ORDERED: LIDOCAINE VISCOUS 2% 15ML UD MT ONE (09:18)
[2020-08-26] MEDS ORDERED: MIDAZOLAM HCL 5 MG/ML-1ML VIAL IV ONE (09:23)
[2020-08-26] MEDS ORDERED: fentaNYL CITRATE 100 MCG/2 ML VL IV ONE (09:23)
[2020-08-26 12:40] VITALS: BP 132/86
[2020-08-26] MEDS: SUCRALFATE 1 GM/10 ML ORAL SUSP PO SCH ×3 (15:45→21:12)
[2020-08-26] MEDS: METOCLOPRAMIDE HCL 5MG/ml INJ 2ml VIAL IV SCH ×2 (15:45→21:12)
[2020-08-26 17:00] VITALS: BP 122/72
[2020-08-26] MEDS: ATORVASTATIN 20 MG TAB PO SCH (21:13)
[2020-08-26 22:02] VITALS: BP 112/73
[2020-08-27 04:45] VITALS: BP 103/53
[2020-08-27] MEDS: METOCLOPRAMIDE HCL 5MG/ml INJ 2ml VIAL IV SCH ×3 (05:31→21:20)
[2020-08-27] MEDS: BACLOFEN 10 MG TAB PO SCH ×3 (05:32→21:20)
[2020-08-27] MEDS: SUCRALFATE 1 GM/10 ML ORAL SUSP PO SCH ×4 (06:02→21:20)
[2020-08-27] MEDS: ACCU-CHEK COMFORT CURVE STRIP VI SCH ×4 (06:02→21:21)
[2020-08-27] MEDS: InsuLIN REG 1unit/0.01ml Soln (100units/ml) SC SCH ×4 (06:03→21:21)
[2020-08-27 08:15] VITALS: BP 109/76
[2020-08-27 09:00] VITALS: BP 109/76
[2020-08-27] MEDS: ASPirin 81 mg TAB PO SCH (10:13)
[2020-08-27] MEDS: PANTOPRAZOLE 40 MG/10 ML VIAL INJ IV SCH ×2 (10:13→21:20)
[2020-08-27] MEDS: metFORMIN HYDROCHLORIDE 500 MG TAB PO SCH ×2 (10:13→17:52)
[2020-08-27 12:01] VITALS: BP 100/61
[2020-08-27 13:00] VITALS: BP 130/85
[2020-08-27 16:59] VITALS: BP 97/78
[2020-08-27] MEDS: ATORVASTATIN 20 MG TAB PO SCH (21:20)
[2020-08-28 02:26] VITALS: BP 104/58
[2020-08-28 05:23] VITALS: BP 101/62
[2020-08-28] MEDS: METOCLOPRAMIDE HCL 5MG/ml INJ 2ml VIAL IV SCH (05:24)
[2020-08-28] MEDS: BACLOFEN 10 MG TAB PO SCH (05:24)
[2020-08-28] MEDS: SUCRALFATE 1 GM/10 ML ORAL SUSP PO SCH ×2 (06:03→11:30)
[2020-08-28] MEDS: ACCU-CHEK COMFORT CURVE STRIP VI SCH ×2 (06:03→12:02)
[2020-08-28] MEDS: InsuLIN REG 1unit/0.01ml Soln (100units/ml) SC SCH ×2 (06:06→11:30)
[2020-08-28 08:00] VITALS: BP 108/72
[2020-08-28 08:36] VITALS: BP 108/72
[2020-08-28] MEDS: PANTOPRAZOLE 40 MG/10 ML VIAL INJ IV SCH (09:45)
[2020-08-28] MEDS: metFORMIN HYDROCHLORIDE 500 MG TAB PO SCH (09:45)
[2020-08-28] MEDS: ASPirin 81 mg TAB PO SCH (09:45)
== END 2020-08-28 12:00 | disposition home or self-care (01) | DRG 446 ==
LOC: ER 11:23 → EDBD 11:23 → TELE 11:24 → TELE-EAST 08-14 06:30 → DOU IN ADS 08-15 00:19 → TELE-EAST 08-17 21:25 → TELE-WESTW 08-27 15:58
PROVIDERS: ADMIT Internal Medicine; ATTEND Internal Medicine Geriatric Medicine
PROC: 0DB78ZX Excision of Stomach, Pylorus, Via Natural or Artificial Opening Endoscopic, Diagnostic (ICD-10-PCS; principal; 2020-08-26 09:13)
DX: K80.20 Calculus of gallbladder without cholecystitis without obstruction (principal); Z20.822 Contact with and (suspected) exposure to COVID-19; K21.9 Gastro-esophageal reflux disease without esophagitis; K44.9 Diaphragmatic hernia without obstruction or gangrene; E78.5 Hyperlipidemia, unspecified; I10 Essential (primary) hypertension; Z59.0 Homelessness; E11.65 Type 2 diabetes mellitus with hyperglycemia; E66.3 Overweight; K29.70 Gastritis, unspecified, without bleeding; Z82.0 Family history of epilepsy and other diseases of the nervous system; R06.6 Hiccough; Z90.49 Acquired absence of other specified parts of digestive tract; Z68.26 Body mass index [BMI] 26.0-26.9, adult
CPT/HCPCS: 36415; 71045; 78264; 80048; 80053; 80061; 82550; 82962; 83036; 83735; 83880; 84443; 84484; 85025; 85379; 85610; 85652; 86141; 86850; 86900; 86901; 87426; 93005; 93306; 94640; 97163; C9113; G0378; J1815; J2250; J3490; Q0161

== ENCOUNTER 2020-11-02 09:07 | Emergency (ER) | payer OTHER ==
[~2020-11-02] VITALS: Ht 175.3 cm; Wt 90.7 kg
[2020-11-02 09:58] VITALS: BP 135/96
[2020-11-02] MEDS ORDERED: KETOROLAC TROMETH 60MG/2ML VIAL IM ONE (10:45)
== END 2020-11-02 11:13 | disposition home or self-care (01) ==
LOC: ER 09:07
DX: M54.16 Radiculopathy, lumbar region (principal); I10 Essential (primary) hypertension; K21.9 Gastro-esophageal reflux disease without esophagitis; E11.9 Type 2 diabetes mellitus without complications
CPT/HCPCS: 72100; 93005; 96372; 99283; J1885

== ENCOUNTER 2020-11-19 07:21 | Emergency (ER) | payer OTHER, MEDICAID ==
[~2020-11-19] VITALS: Ht 175.3 cm; Wt 81.6 kg
[2020-11-19 07:56] LABS: Urine WBC None Seen /hpf (0 - 3)
[2020-11-19 08:10] LABS: Basophils # (auto) 0.1 10 ^3/uL (0-0.2); Basophils % (auto) 0.7 % (0.0-2.0); Eosinophils # (auto) 0.1 10 ^3/uL (0-0.8); Hematocrit 39.9 % (41.0-53.0); Hemoglobin 14.1 g/dL (13.5-17.5); Lymphocytes # (auto) 1.1 10 ^3/uL (0.4-5.4); Lymphocytes % (auto) 15.9 % (10.0-50.0); Mean Corpuscular Hemoglobin 32.5 pg (28.0-32.0); Mean Corpuscular Hgb Conc. 35.4 g/dL (32.0-36.0); Mean Corpuscular Volume 91.7 fL (80.0-100.0); Monocytes # (auto) 0.4 10 ^3/uL (0-1.3); Monocytes % (auto) 6.1 % (0.0-12.0); Neutrophils # (auto) 5.2 10 ^3/uL (1.6-8.6); Neutrophils % (auto) 76.3 % (37.0-80.0); Nucleated Red Blood Cells % 0.1 %; Platelet Count (auto) 122 10^3/uL (140-450); Red Blood Cells 4.35 10^6/uL (4.5-5.90); White Blood Cell 6.9 10^3/uL (4.4-10.8)
[2020-11-19 08:24] LABS: Alanine Aminotransferase 14 U/L (16-61); Albumin 3.2 g/dL (3.4-5.0); Anion Gap 4 (5-15); Aspartate Aminotransferase 12 U/L (15-37); BUN/Creatinine Ratio 22.5; Blood Urea Nitrogen 20 mg/dL (7-18); Calcium 8.4 mg/dL (8.5-10.1); Carbon Dioxide 27 mmol/L (21-32); Chloride 106 mmol/L (98-107); GFR African American 107 mL/min; GFR Non-African American 88 mL/min; Glucose 169 mg/dL (74-106); Magnesium 1.9 mg/dL (1.6-2.6); Potassium 3.6 mmol/L (3.5-5.1); Sodium 137 mmol/L (136-145)
[2020-11-19 08:29] LABS: Alkaline Phosphatase 68 U/L (45-117); Bilirubin, Total 0.4 mg/dL (0.2-1.0); Total Protein 6.9 g/dL (6.4-8.2)
[2020-11-19 08:42] LABS: Urine Bacteria NONE SEEN /hpf (None Seen); Urine Blood Negative /uL (Negative); Urine Mucus FEW (None Seen); Urine Specific Gravity 1.013 (1.001-1.035)
[2020-11-19] MEDS ORDERED: cefTRIAXone 1GM/50ML D5W 50 ML IV ONE (11:00)
[2020-11-19] MEDS ORDERED: AZITHROMYCIN 500MG/ 250ML 250 ML IV ONE (11:00)
[2020-11-19 13:52] VITALS: BP 116/67
== END 2020-11-19 14:38 | disposition short-term general hospital (02) ==
LOC: EDBD 07:21 → ER 07:21
DX: S33.5XXA Sprain of ligaments of lumbar spine, initial encounter (principal); M54.16 Radiculopathy, lumbar region; J18.9 Pneumonia, unspecified organism; E11.9 Type 2 diabetes mellitus without complications; I10 Essential (primary) hypertension; K21.9 Gastro-esophageal reflux disease without esophagitis; Z20.822 Contact with and (suspected) exposure to COVID-19; W19.XXXA Unspecified fall, initial encounter; Y93.89 Activity, other specified; Y92.89 Other specified places as the place of occurrence of the external cause; Y99.8 Other external cause status
CPT/HCPCS: 36415; 71045; 72131; 72192; 80053; 81001; 83605; 83735; 84484; 85025; 87040; 87426; 93005; 96365; 96368; 99285; J0456; J0696

== ENCOUNTER 2021-01-27 05:54 | Inpatient (IN) | payer OTHER, MEDICAID ==
[~2021-01-27] VITALS: Ht 170.2 cm; Wt 81.2 kg
[2021-01-27] MEDS ORDERED: ALBUTEROL SULF 2.5 MG/0.5ML(0.5%) NEB SOLN NEB ONE (06:15)
[2021-01-27] MEDS ORDERED: methylPREDNISolone SOD SUCC 125 MG/2 ML VL IV ONE (06:15)
[2021-01-27] MEDS ORDERED: ACETAMINOPHEN 650 MG RECT SUPP PR ONE (06:15)
[2021-01-27] MEDS ORDERED: IPRATROPIUM BROM 0.5 MG/2.5ML INH SOL NEB ONE (06:15)
[2021-01-27] MEDS ORDERED: ONDANSETRON HCL 4 MG/2 ML VIAL ONE (06:29)
[2021-01-27] MEDS ORDERED: SODIUM CHLORIDE 0.9% 2,600 ML IV ONE (06:30)
[2021-01-27] MEDS ORDERED: ONDANSETRON HCL 4 MG/2 ML VIAL IV ONE (06:30)
[2021-01-27] MEDS ORDERED: SODIUM BICARBONATE 8.4 % INJ 50ML VIAL IV ONE (06:30)
[2021-01-27 06:35] LABS: Basophils # (auto) 0 10 ^3/uL (0-0.2); Basophils % (auto) 0.4 % (0.0-2.0); Eosinophils # (auto) 0 10 ^3/uL (0-0.8); Eosinophils % (auto) 0.1 % (0.0-7.0); Hematocrit 42.8 % (41.0-53.0); Hemoglobin 14.8 g/dL (13.5-17.5); Lymphocytes # (auto) 0.8 10 ^3/uL (0.4-5.4); Lymphocytes % (auto) 9.5 % (10.0-50.0); Mean Corpuscular Hemoglobin 32.7 pg (28.0-32.0); Mean Corpuscular Hgb Conc. 34.7 g/dL (32.0-36.0); Mean Corpuscular Volume 94.3 fL (80.0-100.0); Monocytes # (auto) 0.1 10 ^3/uL (0-1.3); Monocytes % (auto) 1.5 % (0.0-12.0); Neutrophils # (auto) 7.1 10 ^3/uL (1.6-8.6); Neutrophils % (auto) 88.5 % (37.0-80.0); Nucleated Red Blood Cells % 0.1 %; Red Blood Cells 4.53 10^6/uL (4.5-5.90); Red Cell Distribution Width 13.2 % (11.8-14.3)
[2021-01-27 06:51] LABS: Anion Gap 9 (5-15); Blood Urea Nitrogen 21 mg/dL (7-18); Calcium 8.3 mg/dL (8.5-10.1); Carbon Dioxide 21 mmol/L (21-32); Chloride 108 mmol/L (98-107); Glucose 341 mg/dL (74-106); INR 1.02 (0.9-1.15); Magnesium 1.8 mg/dL (1.6-2.6); Partial Thromboplastin Time 22.4 sec (23.0-31.2); Potassium 3.9 mmol/L (3.5-5.1); Sodium 138 mmol/L (136-145)
[2021-01-27 06:57] LABS: Alanine Aminotransferase 19 U/L (16-61); Alkaline Phosphatase 78 U/L (45-117); Aspartate Aminotransferase 12 U/L (15-37); BUN/Creatinine Ratio 15.8; Bilirubin, Total 0.5 mg/dL (0.2-1.0); GFR African American 67 mL/min; GFR Non-African American 55 mL/min; Total Protein 7.1 g/dL (6.4-8.2)
[2021-01-27] MEDS ORDERED: cefTRIAXone 1GM/50ML D5W 50 ML IV ONE (07:00)
[2021-01-27] MEDS ORDERED: CLINDAMYCIN 600MG IV 50 ML IV ONE (07:00)
[2021-01-27] MEDS ORDERED: LABETALOL HCL 5 MG/ML 4ML SYRINGE IV ONE (07:45)
[2021-01-27] MEDS ORDERED: IOHEXOL 350 MG/ML 100ML IJ ONE (10:43)
[2021-01-27] MEDS ORDERED: ENOXAPARIN SOD 80 MG/0.8ML SYRINGE SC ONE (10:45)
[2021-01-27 13:16] LABS: Urine WBC None Seen /hpf (0 - 3)
[2021-01-27 13:24] LABS: Urine Bacteria NONE SEEN /hpf (None Seen); Urine Blood Negative /uL (Negative); Urine Specific Gravity 1.025 (1.001-1.035)
[2021-01-27] MEDS ORDERED: NITROGLYCERIN 0.4 MG SL TAB SL PRN (13:45)
[2021-01-27] MEDS ORDERED: MORPHINE SULF INJ 2 MG/ML SYRINGE 1ML IV PRN (13:45)
[2021-01-27] MEDS ORDERED: DEXTROSE (50%) 50ML SYRG IV PRN (13:45)
[2021-01-27] MEDS ORDERED: LABETALOL HCL 5 MG/ML 4ML SYRINGE IV PRN (13:45)
[2021-01-27] MEDS ORDERED: DOCUSATE CALCIUM 240 MG CAP PO PRN (13:45)
[2021-01-27] MEDS ORDERED: ACETAMINOPHEN 500 MG TAB PO PRN (13:45)
[2021-01-27] MEDS ORDERED: ONDANSETRON HCL 4 MG/2 ML VIAL IV PRN (13:45)
[2021-01-27 14:55] LABS: INR 1.09 (0.9-1.15); Partial Thromboplastin Time 33.8 sec (23.0-31.2)
[2021-01-27] MEDS: DOXYCYCLINE 100MG/250ML 250 ML IV SCH (15:46)
[2021-01-27] MEDS: InsuLIN REG 1unit/0.01ml Soln (100units/ml) SC SCH ×2 (16:00→20:00)
[2021-01-27] MEDS: ACCU-CHEK COMFORT CURVE STRIP VI SCH ×2 (16:03→20:00)
[2021-01-27] MEDS: INSULIN LANTUS (GLARGINE) 1 /0.01ml (100units/ml) SC SCH (22:00)
[2021-01-27] MEDS: MORPHINE SULF INJ 2 MG/ML SYRINGE 1ML IV PRN (22:25)
[2021-01-28] MEDS: ACCU-CHEK COMFORT CURVE STRIP VI SCH ×6 (00:13→22:00)
[2021-01-28] MEDS: InsuLIN REG 1unit/0.01ml Soln (100units/ml) SC SCH ×6 (00:22→22:07)
[2021-01-28] MEDS: DOXYCYCLINE 100MG/250ML 250 ML IV SCH ×3 (03:14→18:15)
[2021-01-28 06:41] LABS: Basophils # (auto) 0 10 ^3/uL (0-0.2); Basophils % (auto) 0.3 % (0.0-2.0); Eosinophils # (auto) 0 10 ^3/uL (0-0.8); Hematocrit 35.9 % (41.0-53.0); Hemoglobin 12.7 g/dL (13.5-17.5); Lymphocytes # (auto) 0.9 10 ^3/uL (0.4-5.4); Lymphocytes % (auto) 4.9 % (10.0-50.0); Mean Corpuscular Hemoglobin 32.4 pg (28.0-32.0); Mean Corpuscular Hgb Conc. 35.3 g/dL (32.0-36.0); Mean Corpuscular Volume 91.7 fL (80.0-100.0); Monocytes # (auto) 0.7 10 ^3/uL (0-1.3); Monocytes % (auto) 3.7 % (0.0-12.0); Neutrophils # (auto) 17.1 10 ^3/uL (1.6-8.6); Neutrophils % (auto) 91.1 % (37.0-80.0); Red Blood Cells 3.91 10^6/uL (4.5-5.90); Red Cell Distribution Width 13.2 % (11.8-14.3); White Blood Cell 18.8 10^3/uL (4.4-10.8)
[2021-01-28 06:59] LABS: Potassium 3.7 mmol/L (3.5-5.1)
[2021-01-28 07:08] LABS: Albumin 2.9 g/dL (3.4-5.0); Calcium 8.2 mg/dL (8.5-10.1)
[2021-01-28 07:11] LABS: Bilirubin, Total 0.6 mg/dL (0.2-1.0); Total Protein 6.6 g/dL (6.4-8.2)
[2021-01-28] MEDS: cefTRIAXone 1GM/50ML D5W 50 ML IV SCH (09:26)
[2021-01-28] MEDS ORDERED: PANTOPRAZOLE 40 MG TAB PO SCH (10:00)
[2021-01-28] MEDS ORDERED: levoFLOXacin 500MG 100 ML IV SCH (10:00)
[2021-01-28] MEDS: ENOXAPARIN SOD 40 MG/0.4 ML SYRINGE SC SCH (10:01)
[2021-01-28] MEDS ORDERED: PANTOPRAZOLE 40 MG TAB PO ONE (13:15)
[2021-01-28] MEDS ORDERED: ONDANSETRON HCL 4 MG/2 ML VIAL IV PRN (13:30)
[2021-01-28] MEDS ORDERED: ALBUTEROL SULF 2.5 MG/0.5ML(0.5%) NEB SOLN NEB PRN (13:30)
[2021-01-28] MEDS ORDERED: PANT40TA2 PO (14:42)
[2021-01-28] MEDS ORDERED: CHLO25TA PO (14:42)
[2021-01-28 16:37] VITALS: BP 123/83
[2021-01-28] MEDS: CLINDAMYCIN 600MG IV 50 ML IV SCH ×2 (18:17→22:03)
[2021-01-28 22:00] VITALS: BP 124/75
[2021-01-28] MEDS: INSULIN LANTUS (GLARGINE) 1 /0.01ml (100units/ml) SC SCH (22:08)
[2021-01-29] MEDS: DOXYCYCLINE 100MG/250ML 250 ML IV SCH ×2 (03:39→15:58)
[2021-01-29 05:00] VITALS: BP 120/69
[2021-01-29] MEDS: InsuLIN REG 1unit/0.01ml Soln (100units/ml) SC SCH ×4 (06:02→22:14)
[2021-01-29] MEDS: CLINDAMYCIN 600MG IV 50 ML IV SCH ×3 (06:05→22:12)
[2021-01-29] MEDS: ACCU-CHEK COMFORT CURVE STRIP VI SCH ×4 (06:05→22:12)
[2021-01-29 09:00] VITALS: BP 123/78
[2021-01-29] MEDS: PANTOPRAZOLE 40 MG TAB PO SCH (09:23)
[2021-01-29] MEDS: ENOXAPARIN SOD 40 MG/0.4 ML SYRINGE SC SCH (09:23)
[2021-01-29] MEDS: cefTRIAXone 1GM/50ML D5W 50 ML IV SCH (09:23)
[2021-01-29 13:00] VITALS: BP 126/72
[2021-01-29 15:33] VITALS: BP 126/72
[2021-01-29 17:00] VITALS: BP 114/69
[2021-01-29 22:00] VITALS: BP 100/60
[2021-01-29] MEDS: INSULIN LANTUS (GLARGINE) 1 /0.01ml (100units/ml) SC SCH (22:14)
[2021-01-30] MEDS: DOXYCYCLINE 100MG/250ML 250 ML IV SCH ×2 (02:49→15:52)
[2021-01-30 05:00] VITALS: BP 101/58
[2021-01-30 05:43] LABS: Basophils # (auto) 0 10 ^3/uL (0-0.2); Basophils % (auto) 0.1 % (0.0-2.0); Eosinophils # (auto) 0 10 ^3/uL (0-0.8); Eosinophils % (auto) 0.1 % (0.0-7.0); Hematocrit 37.7 % (41.0-53.0); Hemoglobin 13.2 g/dL (13.5-17.5); Lymphocytes # (auto) 0.6 10 ^3/uL (0.4-5.4); Lymphocytes % (auto) 3.6 % (10.0-50.0); Mean Corpuscular Hemoglobin 31.7 pg (28.0-32.0); Mean Corpuscular Hgb Conc. 34.9 g/dL (32.0-36.0); Monocytes # (auto) 0.5 10 ^3/uL (0-1.3); Monocytes % (auto) 3.1 % (0.0-12.0); Neutrophils # (auto) 14.9 10 ^3/uL (1.6-8.6); Neutrophils % (auto) 93.1 % (37.0-80.0); Red Blood Cells 4.15 10^6/uL (4.5-5.90); Red Cell Distribution Width 13.2 % (11.8-14.3)
[2021-01-30 06:10] LABS: Potassium 3.4 mmol/L (3.5-5.1)
[2021-01-30 06:16] LABS: BUN/Creatinine Ratio 23.5; Magnesium 2.1 mg/dL (1.6-2.6)
[2021-01-30] MEDS: CLINDAMYCIN 600MG IV 50 ML IV SCH ×3 (06:23→21:54)
[2021-01-30] MEDS: InsuLIN REG 1unit/0.01ml Soln (100units/ml) SC SCH ×4 (06:24→21:55)
[2021-01-30] MEDS: ACCU-CHEK COMFORT CURVE STRIP VI SCH ×4 (06:24→21:54)
[2021-01-30] MEDS: ENOXAPARIN SOD 40 MG/0.4 ML SYRINGE SC SCH (08:24)
[2021-01-30] MEDS: PANTOPRAZOLE 40 MG TAB PO SCH (08:24)
[2021-01-30] MEDS: cefTRIAXone 1GM/50ML D5W 50 ML IV SCH (08:24)
[2021-01-30] MEDS ORDERED: POTASSIUM CHL 20 Meq TABLET PO ONE (08:45)
[2021-01-30 09:00] VITALS: BP 125/75
[2021-01-30 12:55] VITALS: BP 117/74
[2021-01-30 16:47] VITALS: BP 117/74
[2021-01-30] MEDS: INSULIN LANTUS (GLARGINE) 1 /0.01ml (100units/ml) SC SCH (21:54)
[2021-01-30 22:00] VITALS: BP 119/85
[2021-01-31] VITALS (7 sets, daily range): BP systolic 114–143; BP diastolic 69–89
[2021-01-31] MEDS: DOXYCYCLINE 100MG/250ML 250 ML IV SCH ×2 (03:00→15:40)
[2021-01-31] MEDS: CLINDAMYCIN 600MG IV 50 ML IV SCH ×3 (06:03→21:07)
[2021-01-31] MEDS: ACCU-CHEK COMFORT CURVE STRIP VI SCH ×4 (06:03→21:26)
[2021-01-31] MEDS: InsuLIN REG 1unit/0.01ml Soln (100units/ml) SC SCH ×4 (06:04→21:26)
[2021-01-31 06:06] LABS: Basophils # (auto) 0 10 ^3/uL (0-0.2); Basophils % (auto) 0.2 % (0.0-2.0); Eosinophils # (auto) 0.1 10 ^3/uL (0-0.8); Eosinophils % (auto) 0.5 % (0.0-7.0); Hematocrit 39.6 % (41.0-53.0); Hemoglobin 13.7 g/dL (13.5-17.5); Lymphocytes # (auto) 0.7 10 ^3/uL (0.4-5.4); Lymphocytes % (auto) 6.3 % (10.0-50.0); Mean Corpuscular Hgb Conc. 34.6 g/dL (32.0-36.0); Mean Corpuscular Volume 92.5 fL (80.0-100.0); Monocytes # (auto) 0.6 10 ^3/uL (0-1.3); Monocytes % (auto) 5.7 % (0.0-12.0); Neutrophils # (auto) 9.3 10 ^3/uL (1.6-8.6); Neutrophils % (auto) 87.3 % (37.0-80.0); Red Blood Cells 4.29 10^6/uL (4.5-5.90); Red Cell Distribution Width 13.3 % (11.8-14.3); White Blood Cell 10.6 10^3/uL (4.4-10.8)
[2021-01-31 06:28] LABS: BUN/Creatinine Ratio 27.5; Calcium 8.3 mg/dL (8.5-10.1); Magnesium 2.1 mg/dL (1.6-2.6); Potassium 3.8 mmol/L (3.5-5.1)
[2021-01-31] MEDS: ENOXAPARIN SOD 40 MG/0.4 ML SYRINGE SC SCH (07:52)
[2021-01-31] MEDS: PANTOPRAZOLE 40 MG TAB PO SCH (07:52)
[2021-01-31] MEDS: cefTRIAXone 1GM/50ML D5W 50 ML IV SCH (07:52)
[2021-01-31] MEDS ORDERED: REGADENOSON 0.4 MG/5 ML SYRG IV ONE (12:30)
[2021-01-31] MEDS: INSULIN LANTUS (GLARGINE) 1 /0.01ml (100units/ml) SC SCH (21:26)
[2021-01-31] MEDS: MORPHINE SULF INJ 2 MG/ML SYRINGE 1ML IV PRN (22:45)
[2021-02-01] MEDS: DOXYCYCLINE 100MG/250ML 250 ML IV SCH ×2 (03:30→15:24)
[2021-02-01 05:00] VITALS: BP 150/89
[2021-02-01] MEDS: CLINDAMYCIN 600MG IV 50 ML IV SCH ×3 (05:58→21:50)
[2021-02-01] MEDS: ACCU-CHEK COMFORT CURVE STRIP VI SCH ×4 (06:08→21:55)
[2021-02-01] MEDS: InsuLIN REG 1unit/0.01ml Soln (100units/ml) SC SCH ×4 (06:08→21:50)
[2021-02-01] MEDS: PANTOPRAZOLE 40 MG TAB PO SCH (08:25)
[2021-02-01] MEDS: cefTRIAXone 1GM/50ML D5W 50 ML IV SCH (08:25)
[2021-02-01] MEDS: ENOXAPARIN SOD 40 MG/0.4 ML SYRINGE SC SCH (08:25)
[2021-02-01 09:00] VITALS: BP 123/74
[2021-02-01 13:00] VITALS: BP 140/82
[2021-02-01 17:00] VITALS: BP 119/79
[2021-02-01] MEDS: INSULIN LANTUS (GLARGINE) 1 /0.01ml (100units/ml) SC SCH (21:53)
[2021-02-01 22:00] VITALS: BP 115/44
[2021-02-02] MEDS: DOXYCYCLINE 100MG/250ML 250 ML IV SCH (02:32)
[2021-02-02 05:00] VITALS: BP 112/62
[2021-02-02] MEDS: ACCU-CHEK COMFORT CURVE STRIP VI SCH ×4 (06:32→21:56)
[2021-02-02] MEDS: CLINDAMYCIN 600MG IV 50 ML IV SCH ×3 (06:32→21:56)
[2021-02-02] MEDS: InsuLIN REG 1unit/0.01ml Soln (100units/ml) SC SCH ×4 (06:33→22:00)
[2021-02-02] MEDS: ENOXAPARIN SOD 40 MG/0.4 ML SYRINGE SC SCH (08:20)
[2021-02-02] MEDS: PANTOPRAZOLE 40 MG TAB PO SCH (08:20)
[2021-02-02] MEDS: cefTRIAXone 1GM/50ML D5W 50 ML IV SCH (08:20)
[2021-02-02 09:00] VITALS: BP 136/79
[2021-02-02 12:54] VITALS: BP 127/79
[2021-02-02 16:50] VITALS: BP 138/92
[2021-02-02 22:00] VITALS: BP 123/79
[2021-02-02] MEDS: INSULIN LANTUS (GLARGINE) 1 /0.01ml (100units/ml) SC SCH (22:01)
[2021-02-03 05:00] VITALS: BP 102/59
[2021-02-03] MEDS: CLINDAMYCIN 600MG IV 50 ML IV SCH ×3 (05:34→21:17)
[2021-02-03] MEDS: InsuLIN REG 1unit/0.01ml Soln (100units/ml) SC SCH ×4 (06:02→21:17)
[2021-02-03] MEDS: ACCU-CHEK COMFORT CURVE STRIP VI SCH ×4 (06:02→21:17)
[2021-02-03 06:46] LABS: Basophils # (auto) 0 10 ^3/uL (0-0.2); Basophils % (auto) 0.6 % (0.0-2.0); Eosinophils # (auto) 0.1 10 ^3/uL (0-0.8); Eosinophils % (auto) 1.8 % (0.0-7.0); Hematocrit 38.3 % (41.0-53.0); Hemoglobin 13.4 g/dL (13.5-17.5); Lymphocytes # (auto) 1.1 10 ^3/uL (0.4-5.4); Lymphocytes % (auto) 17.7 % (10.0-50.0); Mean Corpuscular Hemoglobin 32.4 pg (28.0-32.0); Mean Corpuscular Hgb Conc. 35.1 g/dL (32.0-36.0); Mean Corpuscular Volume 92.3 fL (80.0-100.0); Monocytes # (auto) 0.6 10 ^3/uL (0-1.3); Monocytes % (auto) 8.7 % (0.0-12.0); Neutrophils # (auto) 4.6 10 ^3/uL (1.6-8.6); Neutrophils % (auto) 71.2 % (37.0-80.0); Nucleated Red Blood Cells % 0.1 %; Red Blood Cells 4.15 10^6/uL (4.5-5.90); Red Cell Distribution Width 13.1 % (11.8-14.3); White Blood Cell 6.5 10^3/uL (4.4-10.8)
[2021-02-03 07:05] LABS: Calcium 8.6 mg/dL (8.5-10.1); Potassium 3.7 mmol/L (3.5-5.1)
[2021-02-03 07:07] LABS: BUN/Creatinine Ratio 24.4
[2021-02-03 09:00] VITALS: BP 105/73
[2021-02-03] MEDS: cefTRIAXone 1GM/50ML D5W 50 ML IV SCH (09:29)
[2021-02-03] MEDS: PANTOPRAZOLE 40 MG TAB PO SCH (09:29)
[2021-02-03] MEDS: ENOXAPARIN SOD 40 MG/0.4 ML SYRINGE SC SCH (09:29)
[2021-02-03 13:00] VITALS: BP 114/69
[2021-02-03 17:00] VITALS: BP 137/83
[2021-02-03 20:37] VITALS: BP 137/83
[2021-02-03] MEDS: INSULIN LANTUS (GLARGINE) 1 /0.01ml (100units/ml) SC SCH (21:18)
[2021-02-03 22:00] VITALS: BP 109/74
[2021-02-04 05:00] VITALS: BP 121/73
[2021-02-04] MEDS: CLINDAMYCIN 600MG IV 50 ML IV SCH ×3 (05:00→21:45)
[2021-02-04] MEDS: ACCU-CHEK COMFORT CURVE STRIP VI SCH ×4 (06:02→21:46)
[2021-02-04] MEDS: InsuLIN REG 1unit/0.01ml Soln (100units/ml) SC SCH ×4 (06:02→21:47)
[2021-02-04 09:00] VITALS: BP 135/89
[2021-02-04] MEDS: ENOXAPARIN SOD 40 MG/0.4 ML SYRINGE SC SCH (09:34)
[2021-02-04] MEDS: PANTOPRAZOLE 40 MG TAB PO SCH ×2 (09:35→21:46)
[2021-02-04] MEDS: cefTRIAXone 1GM/50ML D5W 50 ML IV SCH (09:35)
[2021-02-04 13:11] VITALS: BP 135/90
[2021-02-04] MEDS ORDERED: BACLOFEN 10 MG TAB PO SCH (14:00)
[2021-02-04 17:00] VITALS: BP 106/57
[2021-02-04] MEDS: BACLOFEN 10 MG TAB PO SCH (21:45)
[2021-02-04] MEDS: INSULIN LANTUS (GLARGINE) 1 /0.01ml (100units/ml) SC SCH (21:47)
[2021-02-04 22:00] VITALS: BP 132/80
[2021-02-05 05:00] VITALS: BP 118/74
[2021-02-05] MEDS: BACLOFEN 10 MG TAB PO SCH ×3 (05:48→21:03)
[2021-02-05] MEDS: CLINDAMYCIN 600MG IV 50 ML IV SCH ×3 (05:48→21:02)
[2021-02-05] MEDS: ACCU-CHEK COMFORT CURVE STRIP VI SCH ×4 (06:10→21:03)
[2021-02-05] MEDS: InsuLIN REG 1unit/0.01ml Soln (100units/ml) SC SCH ×4 (06:10→21:03)
[2021-02-05] MEDS: MORPHINE SULF INJ 2 MG/ML SYRINGE 1ML IV PRN (06:46)
[2021-02-05] MEDS: cefTRIAXone 1GM/50ML D5W 50 ML IV SCH (09:00)
[2021-02-05 09:13] VITALS: BP 115/68
[2021-02-05] MEDS: ENOXAPARIN SOD 40 MG/0.4 ML SYRINGE SC SCH (10:11)
[2021-02-05] MEDS: PANTOPRAZOLE 40 MG TAB PO SCH ×2 (10:11→21:03)
[2021-02-05 13:00] VITALS: BP 114/66
[2021-02-05 17:00] VITALS: BP 118/91
[2021-02-05] MEDS: INSULIN LANTUS (GLARGINE) 1 /0.01ml (100units/ml) SC SCH (21:04)
[2021-02-05 22:00] VITALS: BP 98/58
[2021-02-06 05:00] VITALS: BP 107/66
[2021-02-06] MEDS: CLINDAMYCIN 600MG IV 50 ML IV SCH ×3 (05:17→22:46)
[2021-02-06] MEDS: BACLOFEN 10 MG TAB PO SCH ×3 (06:17→22:46)
[2021-02-06] MEDS: ACCU-CHEK COMFORT CURVE STRIP VI SCH ×4 (06:18→22:00)
[2021-02-06] MEDS: InsuLIN REG 1unit/0.01ml Soln (100units/ml) SC SCH ×4 (06:20→22:00)
[2021-02-06] MEDS: MORPHINE SULF INJ 2 MG/ML SYRINGE 1ML IV PRN (08:11)
[2021-02-06 09:00] VITALS: BP 118/76
[2021-02-06] MEDS: cefTRIAXone 1GM/50ML D5W 50 ML IV SCH (09:00)
[2021-02-06] MEDS: PANTOPRAZOLE 40 MG TAB PO SCH ×2 (09:48→22:46)
[2021-02-06] MEDS: ENOXAPARIN SOD 40 MG/0.4 ML SYRINGE SC SCH (09:48)
[2021-02-06] MEDS: SUCRALFATE 1 GM/10 ML ORAL SUSP PO SCH ×3 (11:30→22:47)
[2021-02-06 13:00] VITALS: BP 102/64
[2021-02-06 17:00] VITALS: BP 126/68
[2021-02-06 22:00] VITALS: BP 111/70
[2021-02-06] MEDS: INSULIN LANTUS (GLARGINE) 1 /0.01ml (100units/ml) SC SCH (22:00)
[2021-02-07 00:48] VITALS: BP 118/76
[2021-02-07 05:00] VITALS: BP 106/67
[2021-02-07] MEDS: CLINDAMYCIN 600MG IV 50 ML IV SCH ×2 (05:52→13:45)
[2021-02-07] MEDS: BACLOFEN 10 MG TAB PO SCH ×2 (05:52→13:00)
[2021-02-07] MEDS: SUCRALFATE 1 GM/10 ML ORAL SUSP PO SCH ×2 (05:53→11:30)
[2021-02-07] MEDS: ACCU-CHEK COMFORT CURVE STRIP VI SCH ×2 (06:03→11:52)
[2021-02-07] MEDS: InsuLIN REG 1unit/0.01ml Soln (100units/ml) SC SCH ×2 (06:05→11:30)
[2021-02-07 09:00] VITALS: BP 103/71
[2021-02-07] MEDS: cefTRIAXone 1GM/50ML D5W 50 ML IV SCH (09:27)
[2021-02-07] MEDS: ENOXAPARIN SOD 40 MG/0.4 ML SYRINGE SC SCH (09:27)
[2021-02-07] MEDS: PANTOPRAZOLE 40 MG TAB PO SCH (09:27)
[2021-02-07 12:58] VITALS: BP 114/64
== END 2021-02-07 17:20 | disposition home or self-care (01) | DRG 177 ==
LOC: EDBD 05:54 → ER 05:54 → TELE 13:33 → TELE-WESTW 01-28 13:44
PROVIDERS: ADMIT Family Medicine; ATTEND Internal Medicine Geriatric Medicine
PROC: 05HA33Z Insertion of Infusion Device into Left Brachial Vein, Percutaneous Approach (ICD-10-PCS; principal; 2021-01-28)
PROC: B54NZZA Ultrasonography of Left Upper Extremity Veins, Guidance (ICD-10-PCS; 2021-01-28)
DX: J69.0 Pneumonitis due to inhalation of food and vomit (principal); J96.01 Acute respiratory failure with hypoxia; E87.2 Acidosis; K29.70 Gastritis, unspecified, without bleeding; K80.20 Calculus of gallbladder without cholecystitis without obstruction; K59.00 Constipation, unspecified; I10 Essential (primary) hypertension; K21.9 Gastro-esophageal reflux disease without esophagitis; K44.9 Diaphragmatic hernia without obstruction or gangrene; E78.5 Hyperlipidemia, unspecified; R07.89 Other chest pain; E11.9 Type 2 diabetes mellitus without complications; N28.9 Disorder of kidney and ureter, unspecified; Z20.822 Contact with and (suspected) exposure to COVID-19; Z59.0 Homelessness; Z82.0 Family history of epilepsy and other diseases of the nervous system; Z90.49 Acquired absence of other specified parts of digestive tract
CPT/HCPCS: 36415; 36600; 71045; 71275; 74176; 76705; 78452; 80048; 80053; 81001; 82805; 82962; 83036; 83605; 83735; 83880; 84443; 84484; 85025; 85379; 85610; 85730; 87040; 87070; 87077; 87081; 87205; 87426; 93005; 93017; 94640; 96361; 96374; 96375; 97163; 99291; G0378; J0696; J1815; J2405; J3490

== ENCOUNTER 2022-03-06 12:10 | Emergency (ER) | payer MEDICAID, OTHER ==
[~2022-03-06] VITALS: Ht 175.3 cm; Wt 72.4 kg
[~2022-03-06 12:10] MED LIST: CHLO25TA PO; PANT40TA2 PO
[2022-03-06 13:09] LABS: Basophils # (auto) 0.1 10 ^3/uL (0-0.2); Basophils % (auto) 0.9 % (0.0-2.0); Eosinophils # (auto) 0.1 10 ^3/uL (0-0.8); Eosinophils % (auto) 1.1 % (0.0-7.0); Hematocrit 39.8 % (41.0-53.0); Hemoglobin 12.9 g/dL (13.5-17.5); Lymphocytes # (auto) 1.4 10 ^3/uL (0.4-5.4); Mean Corpuscular Hemoglobin 29.9 pg (28.0-32.0); Mean Corpuscular Hgb Conc. 32.5 g/dL (32.0-36.0); Monocytes # (auto) 0.3 10 ^3/uL (0-1.3); Monocytes % (auto) 5.4 % (0.0-12.0); Neutrophils # (auto) 4.1 10 ^3/uL (1.6-8.6); Neutrophils % (auto) 68.6 % (37.0-80.0); Nucleated Red Blood Cells % 0.1 %; Red Blood Cells 4.33 10^6/uL (4.5-5.90); Red Cell Distribution Width 13.8 % (11.8-14.3); White Blood Cell 5.9 10^3/uL (4.4-10.8)
[2022-03-06 13:35] LABS: Albumin 3.6 g/dL (3.4-5.0); Calcium 8.7 mg/dL (8.5-10.1); Potassium 3.6 mmol/L (3.5-5.1)
[2022-03-06 13:38] LABS: BUN/Creatinine Ratio 18.9; Bilirubin, Total 0.3 mg/dL (0.2-1.0); Total Protein 7.2 g/dL (6.4-8.2)
[2022-03-06 15:58] VITALS: BP 105/74
== END 2022-03-06 16:03 | disposition home or self-care (01) ==
LOC: ER 12:10
DX: R07.81 Pleurodynia (principal); E11.9 Type 2 diabetes mellitus without complications; I10 Essential (primary) hypertension; Z90.89 Acquired absence of other organs
CPT/HCPCS: 36415; 71045; 80053; 83880; 84484; 85025; 93005

== ENCOUNTER 2023-06-10 14:01 | Emergency (ER) | payer OTHER, MEDICAID ==
[~2023-06-10] VITALS: Ht 175.3 cm; Wt 80.0 kg
[~2023-06-10 14:01] MED LIST changes: +CHLO1TAB37 PO; -CHLO25TA PO
[2023-06-10 14:05] VITALS: BP 138/78; RESP 20; O2SAT 97
[2023-06-10 14:11] VITALS: PULSE 63
[2023-06-10 14:51] LABS: Basophils # (auto) 0 10 ^3/uL (0-0.2); Basophils % (auto) 0.5 % (0.0-2.0); Eosinophils # (auto) 0.1 10 ^3/uL (0-0.8); Hematocrit 40.3 % (41.0-53.0); Hemoglobin 13.5 g/dL (13.5-17.5); Lymphocytes # (auto) 1.3 10 ^3/uL (0.4-5.4); Mean Corpuscular Hemoglobin 30.8 pg (28.0-32.0); Mean Corpuscular Hgb Conc. 33.4 g/dL (32.0-36.0); Mean Corpuscular Volume 92.1 fL (80.0-100.0); Monocytes # (auto) 0.4 10 ^3/uL (0-1.3); Monocytes % (auto) 6.2 % (0.0-12.0); Neutrophils # (auto) 4.7 10 ^3/uL (1.6-8.6); Neutrophils % (auto) 72.3 % (37.0-80.0); Nucleated Red Blood Cells % 0.1 %; Red Blood Cells 4.37 10^6/uL (4.5-5.90); Red Cell Distribution Width 13.4 % (11.8-14.3); White Blood Cell 6.5 10^3/uL (4.4-10.8)
[2023-06-10 15:11] LABS: Urine Bacteria NONE SEEN /hpf (None Seen); Urine Blood TRACE /uL (Negative); Urine Clarity Clear (Clear); Urine Color Yellow (Yellow); Urine Protein, UAD 1+ (Negative); Urine Specific Gravity 1.019 (1.001-1.035); Urine Urobilinogen Normal (Negative); Urine WBC <1 /hpf (0 - 3)
[2023-06-10 15:13] LABS: Alkaline Phosphatase 75 U/L (46-116); Anion Gap 11 (5-15); Aspartate Aminotransferase 28 U/L (13-40); Bilirubin, Total 0.3 mg/dL (0.2-1.0); Carbon Dioxide 19 mmol/L (20-30); Chloride 111 mmol/L (98-107); Glucose 187 mg/dL (74-106); Sodium 141 mmol/L (136-145)
[2023-06-10 15:14] LABS: Prothrombin Time 11.1 sec (9.3-11.8)
[2023-06-10 15:16] LABS: INR 1.04 (0.9-1.15); Partial Thromboplastin Time 29.4 SEC (24.5-34.5)
[2023-06-10 15:35] LABS: Alanine Aminotransferase 22 U/L (7-40); BUN/Creatinine Ratio 26.2 (10.0-20.0); Blood Urea Nitrogen 32 mg/dL (9-23); Potassium 4.4 mmol/L (3.5-5.1)
[2023-06-10] MEDS ORDERED: PRED20TA2 PO (16:18)
[2023-06-10] MEDS ORDERED: PANT40TA2 PO (16:18)
[2023-06-10] MEDS ORDERED: methylPREDNISolone SOD SUCC 125 MG/2 ML VL IM ONE (16:30)
== END 2023-06-10 18:33 | disposition left against medical advice (07) ==
LOC: ER 14:01
DX: J84.9 Interstitial pulmonary disease, unspecified (principal); I10 Essential (primary) hypertension; E11.9 Type 2 diabetes mellitus without complications; K21.9 Gastro-esophageal reflux disease without esophagitis; Z90.49 Acquired absence of other specified parts of digestive tract; Z79.899 Other long term (current) drug therapy
CPT/HCPCS: 36415; 71045; 80053; 81001; 84484; 85025; 85610; 85730; 93005

== ENCOUNTER 2023-12-27 11:18 | Emergency (ER) | payer OTHER, MEDICAID ==
[~2023-12-27] VITALS: Ht 172.7 cm; Wt 82.0 kg
[~2023-12-27 11:18] MED LIST changes: +PRED20TA2 PO
[2023-12-27 11:45] VITALS: PULSE 68; RESP 17; TEMP 98.1; O2SAT 95
[2023-12-27 12:35] LABS: Chloride 114 mmol/L (98-107); Potassium 3.5 mmol/L (3.5-5.1); Sodium 143 mmol/L (136-145)
[2023-12-27 12:36] LABS: Anion Gap 9 (5-15); Calcium 8.8 mg/dL (8.5-10.1); Carbon Dioxide 20 mmol/L (20-30)
[2023-12-27 12:39] LABS: Basophils # (auto) 0 10 ^3/uL (0-0.2); Basophils % (auto) 0.6 % (0.0-2.0); Eosinophils # (auto) 0.1 10 ^3/uL (0-0.8); Eosinophils % (auto) 1.1 % (0.0-7.0); Hematocrit 37.9 % (41.0-53.0); Hemoglobin 12.9 g/dL (13.5-17.5); Lymphocytes # (auto) 1.4 10 ^3/uL (0.4-5.4); Lymphocytes % (auto) 21.7 % (10.0-50.0); Mean Corpuscular Hemoglobin 31.5 pg (28.0-32.0); Mean Corpuscular Hgb Conc. 34.1 g/dL (32.0-36.0); Mean Corpuscular Volume 92.5 fL (80.0-100.0); Monocytes # (auto) 0.4 10 ^3/uL (0-1.3); Neutrophils # (auto) 4.5 10 ^3/uL (1.6-8.6); Neutrophils % (auto) 69.6 % (37.0-80.0); Nucleated Red Blood Cells % 0.1 %; Red Blood Cells 4.09 10^6/uL (4.5-5.90); Red Cell Distribution Width 13.3 % (11.8-14.3); White Blood Cell 6.4 10^3/uL (4.4-10.8)
[2023-12-27 12:41] LABS: BUN/Creatinine Ratio 12.5 (10.0-20.0); Blood Urea Nitrogen 20 mg/dL (9-23); Glucose 205 mg/dL (74-106)
[2023-12-27 14:00] VITALS: BP 124/71; PULSE 50; RESP 20; O2SAT 94
[2023-12-28] MEDS ORDERED: ACET1CAP14 PO (23:10)
[2023-12-28] MEDS ORDERED: OMEP-434 PO (23:10)
[2023-12-28] MEDS ORDERED: SUCR1TAB31 OR (23:10)
[2023-12-28] MEDS ORDERED: ZOFR4T PO (23:10)
== END 2023-12-27 14:20 | disposition left against medical advice (07) ==
LOC: ER 11:18 → EDUNIT# 11:18 → EDBD 11:18 → ER 14:20
DX: K52.9 Noninfective gastroenteritis and colitis, unspecified (principal); I10 Essential (primary) hypertension; E11.9 Type 2 diabetes mellitus without complications; K21.9 Gastro-esophageal reflux disease without esophagitis; Z98.890 Other specified postprocedural states; Z79.899 Other long term (current) drug therapy
CPT/HCPCS: 36415; 80048; 85025

== ENCOUNTER 2023-12-28 17:48 | Emergency (ER) | payer OTHER, MEDICAID ==
[~2023-12-28] VITALS: Ht 175.3 cm; Wt 82.0 kg
[2023-12-28 18:23] LABS: Basophils # (auto) 0 10 ^3/uL (0-0.2); Basophils % (auto) 0.6 % (0.0-2.0); Eosinophils # (auto) 0.1 10 ^3/uL (0-0.8); Hemoglobin 13.5 g/dL (13.5-17.5); Lymphocytes # (auto) 1.6 10 ^3/uL (0.4-5.4); Lymphocytes % (auto) 21.3 % (10.0-50.0); Mean Corpuscular Hemoglobin 31.1 pg (28.0-32.0); Mean Corpuscular Hgb Conc. 33.7 g/dL (32.0-36.0); Mean Corpuscular Volume 92.2 fL (80.0-100.0); Monocytes # (auto) 0.5 10 ^3/uL (0-1.3); Monocytes % (auto) 6.5 % (0.0-12.0); Neutrophils # (auto) 5.4 10 ^3/uL (1.6-8.6); Neutrophils % (auto) 70.6 % (37.0-80.0); Nucleated Red Blood Cells % 0.1 %; Red Blood Cells 4.34 10^6/uL (4.5-5.90); White Blood Cell 7.6 10^3/uL (4.4-10.8)
[2023-12-28 18:38] LABS: INR 1.08 (0.9-1.15); Partial Thromboplastin Time 27.2 SEC (24.5-34.5); Prothrombin Time 11.4 sec (9.3-11.8)
[2023-12-28 18:46] LABS: Alanine Aminotransferase 16 U/L (7-40); Albumin 4.2 g/dL (3.2-4.8); Alkaline Phosphatase 84 U/L (46-116); Anion Gap 9 (5-15); Aspartate Aminotransferase 13 U/L (13-40); BUN/Creatinine Ratio 13.2 (10.0-20.0); Bilirubin, Total 0.6 mg/dL (0.2-1.0); Blood Urea Nitrogen 22 mg/dL (9-23); Calcium 9.2 mg/dL (8.7-10.4); Carbon Dioxide 20 mmol/L (20-30); Chloride 114 mmol/L (98-107); Glucose 171 mg/dL (74-106); Potassium 3.7 mmol/L (3.5-5.1); Sodium 143 mmol/L (136-145); Total Protein 7.3 g/dL (5.7-8.2)
[2023-12-28] MEDS ORDERED: MORPHINE SULFATE 4 MG/ML SYR/VIAL IV ONE (19:30)
[2023-12-28] MEDS: HYDROcodone-ACET 5/325MG TAB PO ONE (20:19)
[2023-12-28] MEDS: SODIUM CHLORIDE 0.9% 500 ML IV ONE (20:36)
[2023-12-28] MEDS: ONDANSETRON HCL 4 MG/2 ML VIAL IV ONE (20:37)
[2023-12-28] MEDS: FAMOTIDINE (10MG/ML) 2ML VL IV ONE (20:37)
[2023-12-28] MEDS ORDERED: ACET1CAP14 PO (23:10)
[2023-12-28] MEDS ORDERED: SUCR1TAB31 OR (23:10)
[2023-12-28] MEDS ORDERED: ZOFR4T PO (23:10)
[2023-12-28] MEDS ORDERED: OMEP-434 PO (23:10)
[2023-12-28 23:29] VITALS: BP 140/89; PULSE 62; RESP 17; TEMP 98.1; O2SAT 95
== END 2023-12-28 23:12 | disposition home or self-care (01) ==
LOC: ER 17:48
DX: K20.90 Esophagitis, unspecified without bleeding (principal); R07.89 Other chest pain; I10 Essential (primary) hypertension; E11.9 Type 2 diabetes mellitus without complications; K21.9 Gastro-esophageal reflux disease without esophagitis; Z98.890 Other specified postprocedural states; Z79.899 Other long term (current) drug therapy
CPT/HCPCS: 36415; 71045; 74176; 80053; 83690; 83880; 84484; 85025; 85379; 85610; 85730; 93005; 99285; J2405; J3490

== ENCOUNTER 2024-01-15 11:39 | Emergency (ER) | payer OTHER, MEDICAID ==
[~2024-01-15] VITALS: Ht 175.3 cm; Wt 81.8 kg
[~2024-01-15 11:39] MED LIST changes: +ACET1CAP14 PO; +OMEP-434 PO; +SUCR1TAB31 OR; +ZOFR4T PO
[2024-01-15 12:07] LABS: Basophils # (auto) 0 10 ^3/uL (0-0.2); Basophils % (auto) 0.2 % (0.0-2.0); Eosinophils # (auto) 0 10 ^3/uL (0-0.8); Eosinophils % (auto) 0.1 % (0.0-7.0); Hematocrit 33.1 % (41.0-53.0); Hemoglobin 11.5 g/dL (13.5-17.5); Lymphocytes # (auto) 1.2 10 ^3/uL (0.4-5.4); Mean Corpuscular Hemoglobin 32.1 pg (28.0-32.0); Mean Corpuscular Hgb Conc. 34.6 g/dL (32.0-36.0); Mean Corpuscular Volume 92.7 fL (80.0-100.0); Monocytes # (auto) 0.9 10 ^3/uL (0-1.3); Monocytes % (auto) 5.9 % (0.0-12.0); Neutrophils # (auto) 12.7 10 ^3/uL (1.6-8.6); Neutrophils % (auto) 85.8 % (37.0-80.0); Red Blood Cells 3.57 10^6/uL (4.5-5.90); Red Cell Distribution Width 13.2 % (11.8-14.3); White Blood Cell 14.8 10^3/uL (4.4-10.8)
[2024-01-15] MEDS: SODIUM CHLORIDE 0.9% 1,000 ML IV ONE (12:12)
[2024-01-15] MEDS: ONDANSETRON HCL 4 MG/2 ML VIAL IV ONE (12:13)
[2024-01-15] MEDS: PANTOPRAZOLE 40 MG/10 ML VIAL INJ IV ONE (12:13)
[2024-01-15 12:43] LABS: Alanine Aminotransferase 10 U/L (7-40); Albumin 3.7 g/dL (3.2-4.8); Alkaline Phosphatase 78 U/L (46-116); Anion Gap 8 (5-15); Aspartate Aminotransferase 10 U/L (13-40); BUN/Creatinine Ratio 9.2 (10.0-20.0); Blood Urea Nitrogen 19 mg/dL (9-23); Calcium 8.7 mg/dL (8.7-10.4); Carbon Dioxide 19 mmol/L (20-30); Chloride 112 mmol/L (98-107); Glucose 220 mg/dL (74-106); Lipase 21 U/L (12-53); Potassium 3.1 mmol/L (3.5-5.1); Sodium 139 mmol/L (136-145)
[2024-01-15 12:44] LABS: Bilirubin, Total 1.1 mg/dL (0.2-1.0); Total Protein 6.7 g/dL (5.7-8.2)
[2024-01-15] MEDS ORDERED: MORPHINE SULFATE 4 MG/ML SYR/VIAL IV ONE (15:00)
[2024-01-16] MEDS: CEFEPIME 2GM/50ML NS 50 ML IV ONE (01:41)
[2024-01-16 02:45] VITALS: BP 118/60; PULSE 60; RESP 20; TEMP 97.8; O2SAT 98
== END 2024-01-15 22:10 | disposition short-term general hospital (02) ==
LOC: EDBD 11:39 → ER 11:52
DX: R07.9 Chest pain, unspecified (principal); K80.20 Calculus of gallbladder without cholecystitis without obstruction; R53.1 Weakness; E11.9 Type 2 diabetes mellitus without complications; K21.9 Gastro-esophageal reflux disease without esophagitis; I10 Essential (primary) hypertension
CPT/HCPCS: 36415; 74176; 76700; 80053; 83605; 83690; 84484; 85025; 93005; 96361; 96365; 96375; 99285; J0692; J2405; J2470; J7030

== ENCOUNTER 2024-06-05 18:20 | Emergency (ER) | payer OTHER, MEDICAID ==
[~2024-06-05] VITALS: Ht 157.5 cm; Wt 77.2 kg
[2024-06-05 20:20] LABS: Basophils # (auto) 0 10 ^3/uL (0-0.2); Basophils % (auto) 0.6 % (0.0-2.0); Eosinophils # (auto) 0.1 10 ^3/uL (0-0.8); Eosinophils % (auto) 1.1 % (0.0-7.0); Hematocrit 41.3 % (41.0-53.0); Hemoglobin 13.8 g/dL (13.5-17.5); Lymphocytes # (auto) 1.4 10 ^3/uL (0.4-5.4); Lymphocytes % (auto) 19.6 % (10.0-50.0); Mean Corpuscular Hemoglobin 31.1 pg (28.0-32.0); Mean Corpuscular Hgb Conc. 33.5 g/dL (32.0-36.0); Mean Corpuscular Volume 92.9 fL (80.0-100.0); Monocytes # (auto) 0.5 10 ^3/uL (0-1.3); Monocytes % (auto) 7.2 % (0.0-12.0); Neutrophils # (auto) 5.2 10 ^3/uL (1.6-8.6); Neutrophils % (auto) 71.5 % (37.0-80.0); Platelet Count (auto) 149 10^3/uL (140-450); Red Blood Cells 4.45 10^6/uL (4.5-5.90); Red Cell Distribution Width 13.5 % (11.8-14.3); White Blood Cell 7.2 10^3/uL (4.4-10.8)
--- NOTE | 2024-06-05 20:23 | ED.PDOC ---
GI ASSESSMENT HPI Comments 78-year-old male who came to ER for abdominal pain. Patient states he has been having episodes of epigastric abdominal pain for the past 20 years. Patient seen here multiple times for the same issues. Described epigastric pain to usually self resolves within a few hours, however todays epigastric pain will s omehow persist, with episodes of nausea and vomiting (x2) and shortness of breath. He does have history of GERD, gallstones and kidney stones Chief Complaint: Abdominal Pain Time Seen by MD: 20:22 Primary Care Provider: REHANA Cantor Notes: Nurses Notes Allergies: Coded Allergies: NO KNOWN ALLERGIES (Unverified , 02/13/20) Home Meds Active Scripts Ondansetron Odt 4MG Tab (ZOFRAN PO) 4 Mg Tb, 4 MG PO TID, #15 TAB ODT TAB-DISSOLVE IN MOUTH, THEN SWALLOW Prov:ROSALES VERONICA MD 12/28/23 Acetaminophen (Tylenol) 325 Mg Cap, 650 MG PO Q4HP PRN, #30 CAP Prov:ROSALES VERONICA MD 12/28/23 Sucralfate (CARAFATE) 1 Gm Tab, 1 GM OR Q6HP PRN, #30 TAB Prov:ROSALES VERONICA MD 12/28/23 Omeprazole Magnesium (Omeprazole) 20 Mg Tab, 20 MG PO DAILY, #30 TAB Prov:ROSALES VERONICA MD 12/28/23 Pantoprazole Sodium Sesquihydr (Protonix) 40 Mg Tab, 40 MG PO DAILY for 10 Days, #10 TAB Prov:TURNER DEMPSEY MD 06/10/23 Prednisone (Prednisone) 20 Mg Tab, 20 MG PO DAILY for 7 Days, #7 MG Prov:TURNER DEMPSEY MD 06/10/23 Reported Medications Chlorpromazine Hcl (Chlorpromazine Hcl) 25 Mg Tab, 25 MG PO TID, MG 01/28/21 Pantoprazole Sodium Sesquihydr (Protonix) 40 Mg Tab, 40 MG PO DAILY 01/28/21 Information Source: Patient Mode of Arrival: Ambulatory Timing: Hours Duration: Since onset Prehospital treatment: None Quality: Cramping Vomitus: Watery Stool: Normal Severity: Moderate Recent: None Recent Hx of: Ulcer Disease Pain Location: Epigastric Associated sign and symptoms: Nausea, Vomiting, Abdominal Pain Review of Systems: REVIEW OF SYSTEMS: No fever, no chills, or fatigue HEENT: No sore throat, no earache, no congestion, no neck pain. Cardiac: No chest pain. No palpitations. Lungs: No shortness of breath, no cough. GI: (+) nausea and vomiting, no diarrhea, no constipation, (+)abdominal pain : No dysuria, frequency, or urgency. No hematuria. Musculoskeletal: No joint pain , no joint swelling, no extremity edema. Skin: No rash, no itching. Neuro: No headache, no dizziness, no weakness Vital Signs Vital Signs Date Time Temp Pulse Resp B/P (MAP) Pulse Ox O2 Delivery O2 Flow Rate FiO2 06/05/24 23:13 98.0 81 16 124/69 (87) 96 98.0 06/05/24 21:09 Room Air* 0 21 Physical Exam General: Awake, alert and oriented. No acute distress. Skin: Skin in warm, dry and intact. Appropriate color for ethnicity. Nailbeds pink with no cyanosis. HEENT: The head is normocephalic and atraumatic. Conjunctivae are clear without exudates or hemorrhage. Sclera is non-icteric. EOM are intact. No signs of nystagmus. Eyelids are normal in appearance without swelling or lesions. Oral mucosa is pink and moist Neck: The neck is supple with normal range of motion. No JVD. Cardiac: Heart rate and rhythm are normal. No murmurs, gallops, or rubs are auscultated. Respiratory: No signs of respiratory distress. Lung sounds are clear in all lobes bilaterally without rales, ronchi, or wheezes. Abdominal: Abdomen is soft, with epigastric tenderness, without distention. Bowel sounds are present and normoactive in all four quadrants. Extremities: Upper and lower extremities are atraumatic in appearance without deformity or edema. Neurological: Patient is hard of hearing. The patient is awake, alert and oriented to person, place, and time with normal speech. Speech is clear. There is no facial asymmetry. Psychiatric: Appropriate mood and affect. Good judgement and insight. No visual or auditory hallucinations. Past Medical History PAST MEDICAL HISTORY: DM, Gallstones, GERD, HTN, Kidney Stones Past Medical History (Other): Hiatal hernia Surgical History: Appendectomy, Hernia Repair Family History Family History: No family hx of Cancer, No family hx of DM Social History Smoker: Non-Smoker Alcohol: Denies ETOH Use Drugs: Denies Drug Use Lives In: Home Was a procedure done? Was a procedure done?: No GI differential Dx Differential Diagnosis: Angina/TX, Aortic dissection, Bowel Obstruction, Constipation, Diverticular disease, Esophageal rupture, Esophagitis, Gastritis/PUD, Gastroenteritis, Hernia, Pancreatitis, UTI, Urolithiasis, Other Other Differential Diagnosis Hiatal hernia, X-Ray, Labs, Meds, VS Vital Signs Date Time Temp Pulse Resp B/P (MAP) Pulse Ox O2 Delivery O2 Flow Rate FiO2 06/05/24 23:13 98.0 81 16 124/69 (87) 96 98.0 06/05/24 21:09 61 17 96 Room Air* 0 21 06/05/24 20:56 97.9 61 17 135/85 (102) 96 97.9 06/05/24 18:55 66 06/05/24 18:51 98.1 67 16 139/73 (95) 98 Lab Test 06/05/24 20:11 Range/Units White Blood Count 7.2 4.4-10.8 10^3/uL Red Blood Count 4.45 L 4.5-5.90 10^6/uL Hemoglobin 13.8 13.5-17.5 g/dL Hematocrit 41.3 41.0-53.0 % Mean Corpuscular Volume 92.9 80.0-100.0 fL Mean Corpuscular Hemoglobin 31.1 28.0-32.0 pg Mean Corpuscular Hemoglobin Concent 33.5 32.0-36.0 g/dL Red Cell Distribution Width 13.5 11.8-14.3 % Platelet Count 149 140-450 10^3/uL Mean Platelet Volume 8.7 6.9-10.8 fL Neutrophils (%) (Auto) 71.5 37.0-80.0 % Lymphocytes (%) (Auto) 19.6 10.0-50.0 % Monocytes (%) (Auto) 7.2 0.0-12.0 % Eosinophils (%) (Auto) 1.1 0.0-7.0 % Basophils (%) (Auto) 0.6 0.0-2.0 % Neutrophils # (Auto) 5.2 1.6-8.6 10 ^3/uL Lymphocytes # (Auto) 1.4 0.4-5.4 10 ^3/uL Monocytes # (Auto) 0.5 0-1.3 10 ^3/uL Eosinophils # (Auto) 0.1 0-0.8 10 ^3/uL Basophils # (Auto) 0 0-0.2 10 ^3/uL Nucleated Red Blood Cells 0.0 % Sodium Level 142 136-145 mmol/L Potassium Level 4.2 3.5-5.1 mmol/L Chloride Level 110 H 98-107 mmol/L Carbon Dioxide Level 24 20-31 mmol/L Anion Gap 8 5-15 Blood Urea Nitrogen 20 9-23 mg/dL Creatinine 1.35 H 0.700-1.30 mg/dL Glomerular Filtration Rate Calc 53 >90 mL/min BUN/Creatinine Ratio 14.8 10.0-20.0 Serum Glucose 148 H 74-106 mg/dL Lactic Acid Level 1.6 0.4-2.0 mmol/L Calcium Level 9.2 8.7-10.4 mg/dL Total Bilirubin 0.4 0.2-1.0 mg/dL Aspartate Amino Transferase (AST) 18 13-40 U/L Alanine Aminotransferase (ALT) 11 7-40 U/L Alkaline Phosphatase 78 46-116 U/L Troponin I High Sensitivity 17 </=54 ng/L Total Protein 7.5 5.7-8.2 g/dL Albumin 4.4 3.2-4.8 g/dL Lipase 28 12-53 U/L Current Medications Medications (Trade) Dose Ordered Sig/Adam Route Start Time Stop Time Status Last Admin Al Hydrox/Mg Hydrox/Simethicone (Maalox Plus) 30 ml ONCE ONCE PO 06/05/24 20:00 06/05/24 20:01 DC 06/05/24 20:59 Lidocaine HCl (Xylocaine 2% Viscous) 10 ml ONCE ONCE PO 06/05/24 20:00 06/05/24 20:01 DC 06/05/24 21:00 Ondansetron HCl (Zofran Po) 4 mg ONCE ONCE PO 06/05/24 20:00 06/05/24 20:01 DC 06/05/24 20:59 Exam: CT CHST AB PEL WO CON-NO IV/ORAL Findings: Evaluation of solid organs is limited due to lack of intravenous contrast use. Lung Bases: No acute or significant lung base finding. Normal heart size. No pleural or pericardial effusion. Liver: The liver is normal in size. No focal lesions. Gallbladder and Biliary Tree: Cholelithiasis. Spleen: Unremarkable Pancreas: The pancreas is grossly normal in appearance. Adrenal Glands: Unremarkable Kidneys: No hydronephrosis. 3 mm nonobstructing stone in the midpole of the left kidney. Bladder: Grossly unremarkable for degree of distention. Bowel: Stable fat containing hiatal hernia. Small bowel and colon are normal in caliber and distribution. The appendix is not visualized; however, no secondary findings of acute appendicitis identified. Ascites: Absent Lymphadenopathy: No mesenteric, retroperitoneal or periportal lymphadenopathy. Abdominal Wall and Mesentery: Moderate left-sided fat containing inguinal hernia.. Vasculature: The visualized abdominal aorta is normal in size and caliber. Evaluation of abdominal and pelvic vessels is limited due to lack of intravenous contrast. Pelvic Organs: Prostatomegaly measuring up to 6.8 cm in transverse dimension. Musculoskeletal: No aggressive focal bony lesions, acute fractures or dislocation. Left hip hardware is noted. Compression deformity of the L3 vertebral body. IMPRESSION: 1. No acute abdominal or pelvic findings. 2. Cholelithiasis. 3. Renal calculi without hydronephrosis. 4. Prostatomegaly. 5. Chronic vertebral compression deformity of the L3 vertebral body. Time of 1ST Reevaluation: 20:17 Reevaluation 1ST: Unchanged Patient Education/Counseling: Diagnosis, Treatment Family Education/Counseling: Diagnosis, Treatment Departure 1 Departure Time of Disposition: 21:44 Impression: Primary Impression: Epigastric pain Disposition: 01 HOME / SELF CARE / HOMELESS Condition: Stable Additional Instructions: ED DISCHARGE INSTRUCTIONS Instructions: Please read all instructions provided in this packet carefully. Although you have been discharged from the Emergency Department, this does not mean that you have a "clean bill of health". No definitive diagnosis for your symptoms has been made today. It is possible that you are in the process of developing a serious illness. This is why you must return to the ED without fail if any new or worsening symptoms (especially if your symptoms include trouble eating, trouble swallowing, chest pain, trouble breathing, abdominal pain, fever, headache, confusion, trouble seeing, or trouble walking) It is also very important that you see a primary care doctor within the next 1-3 days to follow up. If you are unable to get an appointment, return to the ED for re-evaluation within 1-3 days. Abdominal Pain: Care Instructions Overview Abdominal pain has many possible causes. Some aren't serious and get better on their own in a few days. Others need more testing and treatment. If your pain continues or gets worse, you need to be rechecked and may need more tests to find out what is wrong. You may need surgery to correct the problem. Don't ignore new symptoms, such as fever, nausea and vomiting, urination problems, pain that gets worse, and dizziness. These may be signs of a more serious problem. If you are not getting better, you may need more tests or treatment. The doctor has checked you carefully, but problems can develop later. If you notice any problems or new symptoms, get medical treatment right away. Follow-up care is a chu part of your treatment and safety. Be sure to make and go to all appointments, and call your doctor if you are having problems. It's also a good idea to know your test results and keep a list of the medicines you take. How can you care for yourself at home? Rest until you feel better. To prevent dehydration, drink plenty of fluids. Choose water and other clear liquids until you feel better. If you have kidney, heart, or liver disease and have to limit fluids, talk with your doctor before you increase the amount of fluids you drink. When you feel like eating, start with small amounts. Do not have alcohol, caff eine, or spicy, hot, or high-fat foods for a day or two. Avoid anti-inflammatory medicines such as aspirin, ibuprofen (Advil, Motrin), and naproxen (Aleve). These can cause stomach upset. Talk to your doctor if you take daily aspirin for another health problem. When should you call for help? Call 911 anytime you think you may need emergency care. For example, call if: You passed out (lost consciousness). You pass maroon or very bloody stools. You vomit blood or what looks like coffee grounds. You have severe belly pain. Call your doctor now or seek immediate medical care if: Your pain gets worse, especially if it becomes focused in one area of your belly. You have a new or higher fever. Your stools are black and look like tar, or they have streaks of blood. You have unexpected vaginal bleeding. You have symptoms of a urinary tract infection. These may include: Pain when you urinate. Urinating more often than usual. Blood in your urine. You are dizzy or lightheaded, or you feel like you may faint. Watch closely for changes in your health, and be sure to contact your doctor if: You are not getting better as expected. Credits for Abdominal Pain: Care Instructions Current as of: April 19, 2023 Author: [email or web address] Staff Clinical Review Board All [employer] education is reviewed by a team that includes physicians, nurses, advanced practitioners, registered dieticians, and other healthcare professionals. CHEST PAIN EDUCATION There are many things that can cause chest pain. Some are not serious and will get better on their own in a few days. But some kinds of chest pain need more testing and treatment. Your doctor may have recommended a follow-up visit in the next few days. If you are not getting better, you may need more tests or treatment. Even though your doctor has released you, you still need to watch for any problems. The doctor carefully checked you, but sometimes problems can develop later. If you have new symptoms or if your symptoms do not get better, get medical care right away. If you have worse or different chest pain or pressure that lasts more than 5 minutes or you passed out (lost consciousness), call 911 or seek other emergency help right away. A medical visit is only one step in your treatment. Even if you feel better, you still need to do what your doctor recommends, such as going to all suggested follow-up appointments and taking medicines exactly as directed. This will help you recover and help prevent future problems. How can you care for yourself at home? Rest until you feel better. Take your medicine exactly as prescribed. Call your doctor if you think you are having a problem with your medicine. Do not drive after taking a prescription pain medicine. When should you call for help? Call 911 if: You passed out (lost consciousness). You have severe difficulty breathing. You have symptoms of a heart attack. These may include: Chest pain or pressure, or a strange feeling in your chest. Sweating. Shortness of breath. Nausea or vomiting. Pain, pressure, or a strange feeling in your back, neck, jaw, or upper belly or in one or both shoulders or arms. Lightheadedness or sudden weakness. A fast or irregular heartbeat. After you call 911, the boiler or engine operator may tell you to chew 1 adult-strength or 2 to 4 low-dose aspirin. Wait for an ambulance. Do not try to drive yourself. Call your doctor now or seek immediate medical care if: You have any trouble breathing. You have new or different chest pain. You are dizzy or lightheaded, or you feel like you may faint. Watch closely for changes in your health, and be sure to contact your doctor if you do not get better as expected. Current as of: January 30, 2024 Author: [employer] Staff? Comments 78-year-old male with chronic intermittent episodes of epigastric pain ongoing for the past 20 years. Lab studies reviewed, there is no leukocytosis, anemia, elevation of lactic acid. Patient appears to have chronic kidney disease which is stable. Independent interpretation of CT chest abdomen pelvis, no apparent aortic dissection, free air. Patient has upcoming appointment with pediatric urologist, he is advised to keep his appointment. Patient well- appearing, nontoxic. Advised prompt follow-up with PCP, return to the ED with any new, worsening or concerning symptoms. Decision regarding hospitalization or escalation of hospital level of care: Risks and benefits of admission for further treatment of patient's condition was considered however due to patient's stable condition patient will be discharged to follow up closely or return to care for worsening of condition or inability to follow up. 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 Critical Care Note Critical Care Time?: No Stability Stability form required: No Heart Score Heart Score: Heart Score Response (Comments) Value History N/A 0 EKG N/A 0 Age N/A 0 Risk Factors N/A 0 Troponin N/A 0 Total 0 I personally scribed for SOL CLEANING MD ([email or web address]) on 06/05/24 at 20:23. Electronically submitted by Deo Garza ([employer]). I personally scribed for SOL CLEANING MD ([email or web address]) on 06/05/24 at 21:39. Electronically submitted by Deo Garza ([employer]). SOL CLEANING MD Jun 05, 2024 20:23
[2024-06-05 20:39] LABS: Alanine Aminotransferase 11 U/L (7-40); Albumin 4.4 g/dL (3.2-4.8); Alkaline Phosphatase 78 U/L (46-116); Anion Gap 8 (5-15); Aspartate Aminotransferase 18 U/L (13-40); BUN/Creatinine Ratio 14.8 (10.0-20.0); Bilirubin, Total 0.4 mg/dL (0.2-1.0); Blood Urea Nitrogen 20 mg/dL (9-23); Calcium 9.2 mg/dL (8.7-10.4); Carbon Dioxide 24 mmol/L (20-31); Lipase 28 U/L (12-53); Potassium 4.2 mmol/L (3.5-5.1); Sodium 142 mmol/L (136-145); Total Protein 7.5 g/dL (5.7-8.2)
[2024-06-05 20:43] LABS: Chloride 110 mmol/L (98-107); Glucose 148 mg/dL (74-106)
[2024-06-05] MEDS: ONDANSETRON ODT 4 MG TAB PO ONE (20:59)
[2024-06-05] MEDS: MAALOX PLUS or MAALOX 30 ML PO ONE (20:59)
[2024-06-05] MEDS: LIDOCAINE VISCOUS 2% 15ML UD PO ONE (21:00)
--- NOTE | 2024-06-05 21:04 | DVH ---
Exam: CT CHST AB PEL WO CON-NO IV/ORAL History: CHEST PAIN/EPIG PAIN Comparison Study: CT CT AB PEL WO CON-NO ORAL OR IV on DOS: 01/15/24, CT CT AB PEL WO CON-NO ORAL OR IV on DOS: 12/28/23 Technique: Multidetector spiral CT of the abdomen was performed from lung bases to pubic symphysis. Imaging was performed without IV contrast. Axial, coronal and sagittal multiplanar reformats were ob tained from the axial data set by the technologist. Radiation Dose : 1. Abdomen/Pelvis: CTDIvol 14.7 mGy, DLP 1004 mGy*cm. Findings: Evaluation of solid organs is limited due to lack of intravenous contrast use. Lung Bases: No acute or significant lung base finding. Normal heart size. No pleural or pericardial effusion. Liver: The liver is normal in size. No focal lesions. Gallbladder and Biliary Tree: Cholelithiasis. Spleen: Unremarkable Pancreas: The pancreas is grossly normal in appearance. Adrenal Glands: Unremarkable Kidneys: No hydronephrosis. 3 mm nonobstructing stone in the midpole of the left kidney. Bladder: Grossly unremarkable for degree of distention. Bowel: Stable fat containing hiatal hernia. Small bowel and colon are normal in caliber and distribu tion. The appendix is not visualized; however, no secondary findings of acute appendicitis identifie d. Ascites: Absent Lymphadenopathy: No mesenteric, retroperitoneal or periportal lymphadenopathy. Abdominal Wall and Mesentery: Moderate left-sided fat containing inguinal hernia.. Vasculature: The visualized abdominal aorta is normal in size and caliber. Evaluation of abdominal a nd pelvic vessels is limited due to lack of intravenous contrast. Pelvic Organs: Prostatomegaly measuring up to 6.8 cm in transverse dimension. Musculoskeletal: No aggressive focal bony lesions, acute fractures or dislocation. Left hip hardware is noted. Compression deformity of the L3 vertebral body. IMPRESSION: 1. No acute abdominal or pelvic findings. 2. Cholelithiasis. 3. Renal calculi without hydronephrosis. 4. Prostatomegaly. 5. Chronic vertebral compression deformity of the L3 vertebral body. Radiation optimization: All CT scans at this facility use at least one of these dose optimization lalo hniques: automated exposure control mA and/or kV adjustment per patient size (includes targeted exam s where dose is matched to clinical indication) or iterative reconstruction.
[2024-06-05 21:09] VITALS: PULSE 61; RESP 17; O2SAT 96
[2024-06-05 23:13] VITALS: BP 124/69; PULSE 81; RESP 16; TEMP 98; O2SAT 96
--- NOTE | 2024-06-06 07:05 | ECG ---
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
== END 2024-06-05 23:15 | disposition home or self-care (01) ==
LOC: ER 18:20
DX: R10.13 Epigastric pain (principal); I10 Essential (primary) hypertension; E11.9 Type 2 diabetes mellitus without complications; K21.9 Gastro-esophageal reflux disease without esophagitis; Z79.899 Other long term (current) drug therapy; Z87.442 Personal history of urinary calculi; Z90.49 Acquired absence of other specified parts of digestive tract; Z98.890 Other specified postprocedural states
CPT/HCPCS: 36415; 71250; 74176; 80053; 83605; 83690; 84484; 85025; 93005; 99284; Q0162

== ENCOUNTER 2024-09-20 15:34 | Inpatient (IN) | payer OTHER, MEDICAID ==
[~2024-09-20] VITALS: Ht 172.7 cm; Wt 79.0 kg
--- NOTE | 2024-09-20 16:00 | ED.PDOC ---
History of Present Illness HPI Comments 79 year old male brought in by EMS presents to the ED with a chief complaint of chest wall pain onset 20 years. Patient states he has been experiencing chest wall pain/epigastric pain for the past 20 years. Noticed pain was worsening, was also experiencing shortness of breath, nausea/vomiting. Upon EMS arrival O2 sat was 91% RA, placed on 2L, O2 improved to 98%. Patient denies any PMHx but is a poor historian. PMHx GERD, HTN, DM. No other symptoms or modifying factors present at this time. Patient appears to be in poor overall health. Chief Complaint: Shortness of Breath Time Seen by MD: 15:55 Primary Care Provider: REHANA Cantor Notes: Nurses Notes, Casing Material Weigher Notes, Medications, Allergies Allergies: Coded Allergies: NO KNOWN ALLERGIES (Unverified , 02/13/20) Home Meds Active Scripts Ondansetron Odt 4MG Tab (ZOFRAN PO) 4 Mg Tb, 4 MG PO TID, #15 TAB ODT TAB-DISSOLVE IN MOUTH, THEN SWALLOW Prov:ROSALES VERONICA MD 12/28/23 Acetaminophen (Tylenol) 325 Mg Cap, 650 MG PO Q4HP PRN, #30 CAP Prov:ROSALES VERONICA MD 12/28/23 Sucralfate (CARAFATE) 1 Gm Tab, 1 GM OR Q6HP PRN, #30 TAB Prov:ROSALES VERONICA MD 12/28/23 Omeprazole Magnesium (Omeprazole) 20 Mg Tab, 20 MG PO DAILY, #30 TAB Prov:ROSALES VERONICA MD 12/28/23 Pantoprazole Sodium Sesquihydr (Protonix) 40 Mg Tab, 40 MG PO DAILY for 10 Days, #10 TAB Prov:TURNER DEMPSEY MD 06/10/23 Prednisone (Prednisone) 20 Mg Tab, 20 MG PO DAILY for 7 Days, #7 MG Prov:TURNER DEMPSEY MD 06/10/23 Reported Medications Chlorpromazine Hcl (Chlorpromazine Hcl) 25 Mg Tab, 25 MG PO TID, MG 01/28/21 Pantoprazole Sodium Sesquihydr (Protonix) 40 Mg Tab, 40 MG PO DAILY 01/28/21 Information Source: Patient, Emergency Med Personnel Mode of Arrival: EMS Severity: Moderate Timing: Months Duration: Since onset Prehospital treatment: None Past Medical History PAST MEDICAL HISTORY: DM, Gallstones, GERD, HTN, Kidney Stones Surgical History: Appendectomy, Hernia Repair Family History Family History: No family hx of Cancer, No family hx of DM Social History Smoker: Non-Smoker Alcohol: Denies ETOH Use Drugs: Denies Drug Use Lives In: Home Constitutional: denies: chills, diaphoresis, fatigue, fever, malaise, sweats, weakness, others EENTM: denies: blurred vision, double vision, ear bleeding, ear discharge, ear drainage, ear pain, ear ringing, eye pain, eye redness, hearing loss, mouth pain, mouth swelling, nasal discharge, nose bleeding, nose congestion, nose pain, photophobia, tearing, throat pain, throat swelling, voice changes, others Respiratory: reports: shortness of breath; denies: cough, hemoptysis, orthopnea, SOB at rest, SOB with excertion, stridor, wheezing, others Cardiovascular: reports: chest pain (burning ); denies: dizzy spells, diaphoresis, Dyspnea on exertion, edema, irregular heart beat, left arm pain, lightheadedness, palpitations, PND, syncope, others Gastrointestinal: reports: abdominal pain (burning, epigastric), nausea, vomiting; denies: abdomen distended, blood streaked bowels, constipated, diarrhea, dysphagia, difficulty swallowing, hematemesis, melena, poor appetite, poor fluid intake, rectal bleeding, rectal pain, others Genitourinary: denies: burning, dysuria, flank pain, frequency, hematuria, incontinence, penile discharge, penile sore, pain, testicle pain, testicle swelling, urgency, others Neurological: denies: dizziness, fainting, headache, left sided numbness, left sided weakness, numbness, paresthesia, pre-existing deficit, right sided numbness, right sided weakness, seizure, speech problems, tingling, tremors, weakness, others Musculoskeletal: denies: back pain, gout, joint pain, joint swelling, muscle pain, muscle stiffness, neck pain, others Integumetry: denies: bruises, change in color, change in hair/nails, dryness, laceration, lesions, lumps, rash, wounds, others Allergic/Immunocompromised: denies: Difficulty Healing, Frequent Infections, Hives, Itching, others Hematologic/Lymphatic: denies: anemia, blood clots, easy bleeding, easy bruising, swollen glands, others Endocrine: denies: excessive hunger, excessive sweating, excessive thirst, excessive urination, flushing, intolerance to cold, intolerance to heat, unexpla ined weight gain, unexplained weight loss, others Psychiatric: denies: anxiety, bipolar disorder, depression, hopeless, panic disorder, schizophrenia, sleepless, suicidal, others All Other Systems: Reviewed and Negative Physical Exam Exam Comments Patient has a significant speech impediment that made it difficult to ascertain medical history. 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 General Appearance: Moderate Distress (Due to chest pain and shortness a breath concerns.), Normal HEENT: Normal ENT Inspection, Pharynx Normal, TMs Normal Neck: Full Range of Motion, Non-Tender, Normal, Normal Inspection Respiratory: Other ( Rhonchi appreciated bilaterally throughout with intermittent wheeze. Bilateral lower lobes have reduced breath sounds. Patient does not displays signs of accessory muscle use, but is displaying signs of air hunger on room air.) Cardiovascular: No Edema, No JVD, No Murmur, No Gallop, Normal Peripheral Pulses, Regular Rate/Rhythm Breast Exam: Deferred Gastrointestinal: No Organomegaly, Non Tender, No Pulsatile Mass, Normal Bowel Sounds, Soft Genitalia: Deferred Pelvic: Deferred Rectal: Deferred Extremities: No calf tenderness, Normal capillary refill, No pedal edema Musculoskeletal : Apperance: Normal Neurologic: NOT DONE Cerebellar Function: NOT DONE Reflexes: NOT DONE Skin: Dry, Normal Color, Warm Lymphatic: No Adenopathy Was a procedure done? Was a procedure done?: No Differential Dx Considerations may include: Pneumonia, emphysema, COPD, viral upper respiratory illness, CHF, sepsis, electrolyte abnormality X-Ray, Labs, Meds, VS Vital Signs Date Time Temp Pulse Resp B/P (MAP) Pulse Ox O2 Delivery O2 Flow Rate FiO2 09/20/24 16:21 18 93 Nasal Cannula* 3 32 09/20/24 15:43 98 09/20/24 15:41 98.2 78 17 130/68 (88) 98 98.2 Lab Test 09/20/24 16:32 Range/Units White Blood Count 19.1 H 4.4-10.8 10^3/uL Red Blood Count 4.47 L 4.5-5.90 10^6/uL Hemoglobin 13.8 13.5-17.5 g/dL Hematocrit 41.0 41.0-53.0 % Mean Corpuscular Volume 91.8 80.0-100.0 fL Mean Corpuscular Hemoglobin 31.0 28.0-32.0 pg Mean Corpuscular Hemoglobin Concent 33.7 32.0-36.0 g/dL Red Cell Distribution Width 13.4 11.8-14.3 % Platelet Count 170 140-450 10^3/uL Mean Platelet Volume 8.3 6.9-10.8 fL Neutrophils (%) (Auto) 92.0 H 37.0-80.0 % Lymphocytes (%) (Auto) 2.8 L 10.0-50.0 % Monocytes (%) (Auto) 4.9 0.0-12.0 % Eosinophils (%) (Auto) 0.0 0.0-7.0 % Basophils (%) (Auto) 0.3 0.0-2.0 % Neutrophils # (Auto) 17.6 H 1.6-8.6 10 ^3/uL Lymphocytes # (Auto) 0.5 0.4-5.4 10 ^3/uL Monocytes # (Auto) 0.9 0-1.3 10 ^3/uL Eosinophils # (Auto) 0 0-0.8 10 ^3/uL Basophils # (Auto) 0 0-0.2 10 ^3/uL Nucleated Red Blood Cells 0.0 % D-Dimer, Quantitative 0.82 H 0.0-0.49 mg/L FEU Sodium Level 141 136-145 mmol/L Potassium Level 3.7 3.5-5.1 mmol/L Chloride Level 108 H 98-107 mmol/L Carbon Dioxide Level 23 20-31 mmol/L Anion Gap 10 5-15 Blood Urea Nitrogen 41 H 9-23 mg/dL Creatinine 1.82 H 0.700-1.30 mg/dL Glomerular Filtration Rate Calc 37 >90 mL/min BUN/Creatinine Ratio 22.5 H 10.0-20.0 Serum Glucose 171 H 74-106 mg/dL Lactic Acid Level 1.4 0.4-2.0 mmol/L Calcium Level 9.3 8.7-10.4 mg/dL Total Bilirubin 0.8 0.2-1.0 mg/dL Aspartate Amino Transferase (AST) 15 13-40 U/L Alanine Aminotransferase (ALT) 18 7-40 U/L Alkaline Phosphatase 83 46-116 U/L B-Type Natriuretic Peptide 97.13 0-100 pg/mL Total Protein 7.9 5.7-8.2 g/dL Albumin 4.5 3.2-4.8 g/dL Current Medications Medications (Trade) Dose Ordered Sig/Adam Route Start Time Stop Time Status Last Admin Albuterol (Ventolin Medneb) 5 mg ONCE ONCE NEB 09/20/24 16:00 09/20/24 16:02 DC 09/20/24 16:21 Ipratropium [place] (Atrovent Medneb) 0.5 mg ONCE ONCE NEB 09/20/24 16:00 09/20/24 16:02 DC 09/20/24 16:21 X-Ray, Labs, Meds, VS Comment All studies performed the ED were evaluated by me personally.Laboratories were remarkable for an elevated leukocytosis as well as what appears to be acute on chronic renal concerns. Imaging studies revealed a chronic fibrotic lung condition with a superimposed airspace disease. EKG revealed a rate controlled atrial fibrillation with a rate of 98. Ventricular premature complexes noted as well as RBBB and LAFB. TX interval was not noted and QT interval was 384. Patient will be admitted for pneumonia as well as acute respiratory distress as the patient is currently requiring 3 L of oxygen to saturate in the low 90s. Patient will require a nephrology consult and cardiac consult as well as this may be new onset atrial fib. Time of 1ST Reevaluation: 17:28 Reevaluation 1ST: Improved Consultation: PCP, Cardiology, Pulmonary Patient Education/Counseling: Diagnosis, Treatment, Prognosis Family Education/Counseling: Diagnosis, Treatment, No Family Present Departure 1 Departure Time of Disposition: 17:29 Impression: Primary Impression: Acute respiratory distress Additional Impressions: Pneumonia Acute renal failure superimposed on chronic kidney disease Afib Disposition: 09 ADMITTED INPATIENT Condition: Fair Discharged With: Self Critical Care Note Critical Care Time?: Yes (45 min-critical care time only) Critical care comment: Due to the high probability of a clinically significant and possibly life- threatening deterioration, the patient required my highest level of preparedness to intervene emergently and therefore, I personally provided 45 minutes of critical care time exclusive of time spent on separate billable procedures. This critical care time includes, but is not limited to, obtaining additional history, re-examination of the patient, re-examination is a pulse oximetry, ordering and reviewing of studies, arranging urgent treatment with the development of a management plan as well as evaluation of the patient's response to treatment, frequent reassessments and discussions with other providers. Stability Stability form required: No Heart Score Heart Score: Heart Score Response (Comments) Value History Slightly Suspicious 0 EKG Repolarization Disturb 1 Age >65 2 Risk Factors 1 or 2 risk factors 1 Troponin N/A 0 Total 4 I personally scribed for JENNIFER RUIZ PAC ([email or web address]) on 09/20/24 at 16:00. Electronically submitted by Xuan Travis [email or web address]). JENNIFER RUIZ PAC Sep 20, 2024 16:00
[2024-09-20] MEDS: ALBUTEROL SULF 2.5 MG/0.5ML(0.5%) NEB SOLN NEB ONE (16:21)
[2024-09-20] MEDS: IPRATROPIUM BROM 0.5 MG/2.5ML INH SOL NEB ONE (16:21)
--- NOTE | 2024-09-20 16:28 | DVH ---
CHEST RADIOGRAPH Indication: Shortness of breath Technique: Single frontal view of the chest was obtained COMPARISON: XY CHEST PORTABLE on DOS: 12/28/23, XY CHEST PORTABLE on DOS: 06/10/23, CHEST PORTABLE on DOS: 03/06/22, CXRP on DOS: 03/06/22, CHEST XRAY 1 VIEW on DOS: 01/27/21 FINDINGS: Lines and Tubes: None Lungs: Chronic fibrotic changes Pleura: No effusion. No pneumothorax. Cardiomediastinal contours: Unremarkable Bones: Unremarkable IMPRESSION: Chronic fibrotic changes with possible superimposed acute airspace disease in the bilateral lower lob es.
[2024-09-20 16:51] LABS: Basophils # (auto) 0 10 ^3/uL (0-0.2); Basophils % (auto) 0.3 % (0.0-2.0); Eosinophils # (auto) 0 10 ^3/uL (0-0.8); Hemoglobin 13.8 g/dL (13.5-17.5); Lymphocytes # (auto) 0.5 10 ^3/uL (0.4-5.4); Lymphocytes % (auto) 2.8 % (10.0-50.0); Mean Corpuscular Hgb Conc. 33.7 g/dL (32.0-36.0); Mean Corpuscular Volume 91.8 fL (80.0-100.0); Monocytes # (auto) 0.9 10 ^3/uL (0-1.3); Monocytes % (auto) 4.9 % (0.0-12.0); Neutrophils # (auto) 17.6 10 ^3/uL (1.6-8.6); Platelet Count (auto) 170 10^3/uL (140-450); Red Blood Cells 4.47 10^6/uL (4.5-5.90); Red Cell Distribution Width 13.4 % (11.8-14.3); White Blood Cell 19.1 10^3/uL (4.4-10.8)
[2024-09-20 17:02] LABS: Alanine Aminotransferase 18 U/L (7-40); Alkaline Phosphatase 83 U/L (46-116); Anion Gap 10 (5-15); Aspartate Aminotransferase 15 U/L (13-40); BUN/Creatinine Ratio 22.5 (10.0-20.0); Calcium 9.3 mg/dL (8.7-10.4); Carbon Dioxide 23 mmol/L (20-31); Potassium 3.7 mmol/L (3.5-5.1); Sodium 141 mmol/L (136-145); Total Protein 7.9 g/dL (5.7-8.2)
[2024-09-20 17:03] LABS: Albumin 4.5 g/dL (3.2-4.8); Bilirubin, Total 0.8 mg/dL (0.2-1.0); Blood Urea Nitrogen 41 mg/dL (9-23); Chloride 108 mmol/L (98-107); Glucose 171 mg/dL (74-106)
[2024-09-20] MEDS ORDERED: MORPHINE SULFATE INJ 2 MG/ml SYRG IV PRN (19:00)
[2024-09-20] MEDS ORDERED: NITROGLYCERIN 0.4 MG SL TAB SL PRN (19:00)
--- NOTE | 2024-09-20 19:00 | DVHHP2 ---
Admitting Diagnosis: Acute Respiratory Failure History of Present Illness HPI Patient is a 79M with PMH of chronic epigastric pain who presents with complaints of shortness of breath. Patient presented hypoxic and was placed on 3L nasal canula with improvement. Labs were notable to leukocytosis of 20. CXR was consistent with fibrotic changes with superimposed infectious process. BMP revealed an KARLENE. Patient also complained of epigastric pain. Chart review shows that patient has multiple prior admissions for this issue. He had a EGD on 03/2024 which was normal without gastritis. In 2020 patient had a gastric empyting study which showed markedly delayed emptying. Patient does not take any PPIs stating "they don't work." He has missed multiple follow up appointments. Patient was admitted for further medical management. Home Meds Active Scripts Sucralfate (CARAFATE SUSP) 1 Gm/10 Ml Ss, 10 ML PO QID, #1200 ML 3 Refills Prov:DANIEL BATES DO 09/21/24 Sucralfate (CARAFATE) 1 Gm Tab, 1 GM OR Q6HP PRN, #30 TAB 1 Refill Prov:DANIEL BATES DO 09/21/24 Pantoprazole Sodium Sesquihydr (Protonix) 40 Mg Tab, 40 MG PO DAILY for 30 Days, #30 TAB 0 Refills Prov:TRAMAINESureshDANIEL GILES DO 09/21/24 Azithromycin (ZITHROMAX TABLET) 250 Mg Tb, 250 MG PO DAILY for 5 Days, #6 TAB 0 Refills Take 2 tablets on day one followed by 1 tablet daily. Prov:ADNIEL BATES DO 09/21/24 Ondansetron Odt 4MG Tab (ZOFRAN PO) 4 Mg Tb, 4 MG PO TID, #15 TAB ODT TAB-DISSOLVE IN MOUTH, THEN SWALLOW Prov:ROSALES VERONICA MD 12/28/23 Acetaminophen (Tylenol) 325 Mg Cap, 650 MG PO Q4HP PRN, #30 CAP Prov:ROSALES VERONICA MD 12/28/23 Omeprazole Magnesium (Omeprazole) 20 Mg Tab, 20 MG PO DAILY, #30 TAB Prov:ROSALES VERONICA MD 12/28/23 Prednisone (Prednisone) 20 Mg Tab, 20 MG PO DAILY for 7 Days, #7 MG Prov:TURNER DEMPSEY MD 06/10/23 Reported Medications Chlorpromazine Hcl (Chlorpromazine Hcl) 25 Mg Tab, 25 MG PO TID, MG 01/28/21 Pantoprazole Sodium Sesquihydr (Protonix) 40 Mg Tab, 40 MG PO DAILY 01/28/21 Past Medical History GI: Gastritis Patient Family History: Alzheimer's disease G8 MOTHER Review of Systems Pulmonary/Respiratory: Dyspnea Gastrointestinal: Nausea H&P Exam Vital Signs Vital Signs Date Time Temp Pulse Resp B/P (MAP) Pulse Ox O2 Delivery O2 Flow Rate FiO2 09/20/24 16:21 18 93 Nasal Cannula* 3 32 09/20/24 15:43 98 09/20/24 15:41 98.2 130/68 (88) 98.2 General Appeara: Well developed Pulmonary/Respiratory: Crackles Cardiovascular/Chest: Regular rate Labs/Xrays Labs Test 09/20/24 16:32 Range/Units White Blood Count 19.1 H 4.4-10.8 10^3/uL Red Blood Count 4.47 L 4.5-5.90 10^6/uL Hemoglobin 13.8 13.5-17.5 g/dL Hematocrit 41.0 41.0-53.0 % Mean Corpuscular Volume 91.8 80.0-100.0 fL Mean Corpuscular Hemoglobin 31.0 28.0-32.0 pg Mean Corpuscular Hemoglobin Concent 33.7 32.0-36.0 g/dL Red Cell Distribution Width 13.4 11.8-14.3 % Platelet Count 170 140-450 10^3/uL Mean Platelet Volume 8.3 6.9-10.8 fL Neutrophils (%) (Auto) 92.0 H 37.0-80.0 % Lymphocytes (%) (Auto) 2.8 L 10.0-50.0 % Monocytes (%) (Auto) 4.9 0.0-12.0 % Eosinophils (%) (Auto) 0.0 0.0-7.0 % Basophils (%) (Auto) 0.3 0.0-2.0 % Neutrophils # (Auto) 17.6 H 1.6-8.6 10 ^3/uL Lymphocytes # (Auto) 0.5 0.4-5.4 10 ^3/uL Monocytes # (Auto) 0.9 0-1.3 10 ^3/uL Eosinophils # (Auto) 0 0-0.8 10 ^3/uL Basophils # (Auto) 0 0-0.2 10 ^3/uL Nucleated Red Blood Cells 0.0 % D-Dimer, Quantitative 0.82 H 0.0-0.49 mg/L FEU Sodium Level 141 136-145 mmol/L Potassium Level 3.7 3.5-5.1 mmol/L Chloride Level 108 H 98-107 mmol/L Carbon Dioxide Level 23 20-31 mmol/L Anion Gap 10 5-15 Blood Urea Nitrogen 41 H 9-23 mg/dL Creatinine 1.82 H 0.700-1.30 mg/dL Glomerular Filtration Rate Calc 37 >90 mL/min BUN/Creatinine Ratio 22.5 H 10.0-20.0 Serum Glucose 171 H 74-106 mg/dL Lactic Acid Level 1.4 0.4-2.0 mmol/L Calcium Level 9.3 8.7-10.4 mg/dL Total Bilirubin 0.8 0.2-1.0 mg/dL Aspartate Amino Transferase (AST) 15 13-40 U/L Alanine Aminotransferase (ALT) 18 7-40 U/L Alkaline Phosphatase 83 46-116 U/L B-Type Natriuretic Peptide 97.13 0-100 pg/mL Total Protein 7.9 5.7-8.2 g/dL Albumin 4.5 3.2-4.8 g/dL Assessment/Plan Primary Diagnosis 1. Acute Respiratory Failure due to Pneumonia 2. KARLENE on CKD 3. Elevated D-dimer concerning for PE 4. Abdominal Pain -Admit to med-surg -TN with goal pulse ox>92% -Duonebs Q6H -Levaquin 500mg PO daily -Flu/COVID negative -IVF with NS @60ml/hr -Renal US ordered -VQ scan ordered -Daily CBC and CMP -Protonix 40mg daily for hx of gastritis -Full Code Plan discussed with: Patient DANIEL BATES DO Sep 20, 2024 19:00
[2024-09-20] MEDS: LIDOCAINE VISCOUS 2% 15ML UD PO ONE (19:41)
[2024-09-20] MEDS: MAALOX PLUS or MAALOX 30 ML PO ONE (19:41)
[2024-09-20] MEDS: AMOXICILLIN/CLAVUL 875 MG TAB PO ONE (19:42)
[2024-09-20] MEDS: AZITHROMYCIN 250 MG TAB PO ONE (19:42)
[2024-09-20] MEDS: PANTOPRAZOLE 40 MG TAB PO ONE (19:42)
[2024-09-20 19:50] VITALS: PULSE 80; RESP 14; O2SAT 95
[2024-09-20] MEDS: ACETAMINOPHEN 325 MG TAB PO PRN (19:57)
--- NOTE | 2024-09-20 20:22 | DVH ---
INDICATION: KARLENE TECHNIQUE: Multiple real-time sonographic images of the kidneys and bladder were obtained. COMPARISON: None FINDINGS: The right kidney measures 11.6 cm in length. The right renal echogenicity, contour and cortical thick ness are within normal limits. No hydronephrosis or large masses/calculi are seen. The left kidney measures 11.5 cm in length. The left renal echogenicity, contour, and cortical thickn ess are within normal limits. No hydronephrosis or large masses/calculi are seen. Simple cyst is seen in the left kidney measuring up to 2.7 cm. No large intraluminal masses are seen in the bladder. Prostatomegaly measuring 79 ML in volume. IMPRESSION: No acute findings identified. No hydronephrosis. Prostatomegaly measuring up to 79 mL in volume
[2024-09-20 20:40] VITALS: PULSE 70; RESP 26; O2SAT 95
[2024-09-20] MEDS: SODIUM CHLORIDE 0.9% 1,000 ML IV SCH (21:01)
[2024-09-20 21:04] LABS: COVID19 ANTIGEN SOFIA FIA NEGATIVE (NEGATIVE); Rapid Influenza A Negative (Negative); Rapid Influenza B Negative (Negative)
[2024-09-20] MEDS: PANTOPRAZOLE 40 MG TAB PO SCH (21:48)
[2024-09-20 22:19] VITALS: BP 128/80; PULSE 68; RESP 19; TEMP 97.6; O2SAT 94; O2SAT 97
[2024-09-20 22:30] VITALS: PULSE 68; RESP 19; O2SAT 95
[2024-09-20 22:51] VITALS: BP 133/79; PULSE 70; RESP 26; TEMP 98.4; O2SAT 95
[2024-09-21] VITALS (16 sets, daily range): BP systolic 110–126; BP diastolic 52–82; PULSE 16–79; RESP 12–60; TEMP 36.3; O2SAT 92–100
[2024-09-21] MEDS: ALBUTEROL SULF 2.5 MG/0.5ML(0.5%) NEB SOLN NEB SCH (00:28)
[2024-09-21] MEDS: IPRATROPIUM BROM 0.5 MG/2.5ML INH SOL NEB SCH (00:28)
[2024-09-21 06:04] LABS: Basophils # (auto) 0 10 ^3/uL (0-0.2); Basophils % (auto) 0.2 % (0.0-2.0); Eosinophils # (auto) 0 10 ^3/uL (0-0.8); Eosinophils % (auto) 0.4 % (0.0-7.0); Hematocrit 40.1 % (41.0-53.0); Lymphocytes # (auto) 1.4 10 ^3/uL (0.4-5.4); Lymphocytes % (auto) 15.8 % (10.0-50.0); Mean Corpuscular Hemoglobin 31.2 pg (28.0-32.0); Mean Corpuscular Hgb Conc. 32.4 g/dL (32.0-36.0); Mean Corpuscular Volume 96.2 fL (80.0-100.0); Monocytes # (auto) 0.6 10 ^3/uL (0-1.3); Monocytes % (auto) 6.7 % (0.0-12.0); Neutrophils # (auto) 6.9 10 ^3/uL (1.6-8.6); Neutrophils % (auto) 76.9 % (37.0-80.0); Nucleated Red Blood Cells % 0.1 %; Platelet Count (auto) 153 10^3/uL (140-450); Red Blood Cells 4.17 10^6/uL (4.5-5.90); Red Cell Distribution Width 13.7 % (11.8-14.3)
[2024-09-21 06:29] LABS: Alanine Aminotransferase 16 U/L (7-40); Albumin 3.9 g/dL (3.2-4.8); Alkaline Phosphatase 75 U/L (46-116); Anion Gap 12 (5-15); Aspartate Aminotransferase 18 U/L (13-40); BUN/Creatinine Ratio 26.1 (10.0-20.0); Bilirubin, Total 0.9 mg/dL (0.2-1.0); Calcium 8.8 mg/dL (8.7-10.4); Carbon Dioxide 21 mmol/L (20-31); Potassium 3.7 mmol/L (3.5-5.1); Sodium 143 mmol/L (136-145); Total Protein 6.6 g/dL (5.7-8.2)
[2024-09-21 06:31] LABS: Blood Urea Nitrogen 41 mg/dL (9-23); Chloride 110 mmol/L (98-107); Glucose 107 mg/dL (74-106)
[2024-09-21] MEDS: HYDROcodone-ACET 5/325MG TAB PO PRN (06:40)
[2024-09-21] MEDS: levoFLOXacin 500 MG TAB PO ONE (08:38)
[2024-09-21] MEDS ORDERED: AZIT-185 PO (10:03)
[2024-09-21] MEDS ORDERED: SUCR1TAB31 OR (10:04)
[2024-09-21] MEDS ORDERED: PANT40TA2 PO (10:04)
[2024-09-21] MEDS: HYDROmorphone HCL 2 MG/ML VL/or syr IV ONE (13:20)
[2024-09-21] MEDS ORDERED: SUCR1SUS26 PO (13:23)
--- NOTE | 2024-09-21 13:23 | DVHDS2 ---
Discharge Summary Date of Admission Sep 20, 2024 at 18:49 Date of Discharge: Sep 21, 2024 Labs/Diagnostic Data: Laboratory Results Test 09/21/24 13:04 09/21/24 05:31 09/20/24 20:16 09/20/24 16:32 White Blood Count 9.0 10^3/uL (4.4-10.8) Red Blood Count 4.17 10^6/uL (4.5-5.90) Hemoglobin 13.0 g/dL (13.5-17.5) Hematocrit 40.1 % (41.0-53.0) Mean Corpuscular Volume 96.2 fL (80.0-100.0) Mean Corpuscular Hemoglobin 31.2 pg (28.0-32.0) Mean Corpuscular Hemoglobin Concent 32.4 g/dL (32.0-36.0) Red Cell Distribution Width 13.7 % (11.8-14.3) Platelet Count 153 10^3/uL (140-450) Mean Platelet Volume 8.8 fL (6.9-10.8) Neutrophils (%) (Auto) 76.9 % (37.0-80.0) Lymphocytes (%) (Auto) 15.8 % (10.0-50.0) Monocytes (%) (Auto) 6.7 % (0.0-12.0) Eosinophils (%) (Auto) 0.4 % (0.0-7.0) Basophils (%) (Auto) 0.2 % (0.0-2.0) Neutrophils # (Auto) 6.9 10 ^3/uL (1.6-8.6) Lymphocytes # (Auto) 1.4 10 ^3/uL (0.4-5.4) Monocytes # (Auto) 0.6 10 ^3/uL (0-1.3) Eosinophils # (Auto) 0 10 ^3/uL (0-0.8) Basophils # (Auto) 0 10 ^3/uL (0-0.2) Nucleated Red Blood Cells 0.1 % Sodium Level 143 mmol/L (136-145) Potassium Level 3.7 mmol/L (3.5-5.1) Chloride Level 110 mmol/L (98-107) Carbon Dioxide Level 21 mmol/L (20-31) Anion Gap 12 (5-15) Blood Urea Nitrogen 41 mg/dL (9-23) Creatinine 1.57 mg/dL (0.700-1.30) Glomerular Filtration Rate Calc 44 mL/min (>90) BUN/Creatinine Ratio 26.1 (10.0-20.0) Serum Glucose 107 mg/dL (74-106) Calcium Level 8.8 mg/dL (8.7-10.4) Total Bilirubin 0.9 mg/dL (0.2-1.0) Aspartate Amino Transferase (AST) 18 U/L (13-40) Alanine Aminotransferase (ALT) 16 U/L (7-40) Alkaline Phosphatase 75 U/L (46-116) Total Protein 6.6 g/dL (5.7-8.2) Albumin 3.9 g/dL (3.2-4.8) Influenza Type A Antigen Negative (Negative) Influenza Type B Antigen Negative (Negative) SARS-CoV-2 Antigen (Rapid) Negative (NEGATIVE) D-Dimer, Quantitative 0.82 mg/L FEU (0.0-0.49) Lactic Acid Level 1.4 mmol/L (0.4-2.0) B-Type Natriuretic Peptide 97.13 pg/mL (0-100) Other Laboratory Tests 09/21/24 05:31 Brief Hx & Hospital Course: Patient is a 79-year-old male with past medical history of chronic epigastric pain secondary to gastritis who presents with complaints of shortness of breath. Patient presented hypoxic was placed on 3 L nasal cannula and subsequently weaned down to room air. Chest x-ray is consistent with fibrotic changes with superimposed infectious process. Patient had leukocytosis of 20. BMP showed KARLENE. Patient was treated with azithromycin and Augmentin and subsequently transition to Levaquin. Patient's respiratory symptoms subsequently improved. Patient complained of abdominal pain. He was able to tolerate his diet with no issues of vomiting. Chart review shows that patient has multiple admissions for abdominal pain. According to his PCP note in March 2024, patient had an EGD which was unremarkable. Patient does not take any PPIs at this time stating that they do not work for him. Patient was started on Protonix and given a dose of famotidine while in the hospital for faster relief. Patient had a CT abdomen and pelvis without contrast done. No acute abnormalities noted. Patient was discharged on Protonix, azithromycin, and metoclopramide. VQ scan was done which was negative for PE. Patient worked with physical therapy and noted to ambulate normally at baseline. Patient is to follow-up with GI outpatient. Patient discharged in stable condition. [facility] case management arrange follow-up appointments. Condition at Discharge: Good Final Diagnosis/Problems List Gastroparesis Secondary Diagnosis: URI KARLENE due to [facility] Acute Respiratory Failure-Resolved Discharge Disposition: Home Discharge Instruct/Medications Diet: Regular Activity: No Restrictions, As Tolerated Follow Up/Referral: Follow up with GI for chronic abdominal pain. Medications: Azithromycin for URI. Protonix and sucralfate for abdominal pain. Discharge Statement: "Patient was advised to return to the ER or call 911 if any headaches, dizziness, shortness of breath, chest pain, abdominal pain, bleeding, fevers, or worsening of medical condition. Patient was counseled about treatment plan, medications, possible side effects, patientverbalized understanding. All questions were answered to the best of my ability. This discharge took greater then 30 minutes in planning, reviewing documentation, counseling the patient, and discussing with other team members." ASSESSMENT ASSESSMENT Assessment DANIEL JONES DO Sep 21, 2024 13:23
[2024-09-21 13:27] LABS: Opiate Scree,Urine Neg (NEGATIVE)
[2024-09-21 13:29] LABS: Amphetamine Screen, Urine Neg (NEGATIVE); Barbiturate Scree,Urine Neg (NEGATIVE); Benzodiazephine Screen, Urine Neg (NEGATIVE); Cannabinoid Screen, Urine Neg (NEGATIVE); Cocaine Screen, Urine Neg (NEGATIVE); Phencyclidine Screen, Urine Neg (NEGATIVE)
--- NOTE | 2024-09-21 14:02 | DVH ---
Exam: CT CT AB PEL WO CON-NO ORAL OR IV History: Abdominal pain Comparison Study: CT CHST AB PEL WO CON-NO IV/ORAL on DOS: 06/05/24, CT CT AB PEL WO CON-NO ORAL OR I V on DOS: 01/15/24, CT CT AB PEL WO CON-NO ORAL OR IV on DOS: 12/28/23, CT ABD PELVIS WO CONTRAST on DO S: 01/27/21 Technique: Multidetector spiral CT of the abdomen was performed from lung bases to pubic symphysis. I maging was performed without IV contrast. Axial, coronal and sagittal multiplanar reformats were obta ined from the axial data set by the technologist. Radiation Dose : 1. Abdomen/Pelvis: CTDIvol 14 mGy, DLP 883 mGy*cm. Findings: Evaluation of solid organs is limited due to lack of intravenous contrast use. Lung Bases: Emphysematous changes in the visualized left lower lobe. Normal heart size. No pleural o r pericardial effusion. Coronary artery calcifications. Similar fat containing hiatal hernia. Liver: The liver is normal in size. No focal lesions. Gallbladder and Biliary Tree: Redemonstration of cholelithiasis. No biliary ductal dilatation. Spleen: Unremarkable Pancreas: The pancreas is grossly normal in appearance. Adrenal Glands: Unremarkable Kidneys: Similar nonobstructing 4 mm stone noted in the left kidney. No hydronephrosis is seen. Simil ar simple 2.6 cm left renal cyst, which does not require follow-up. Bladder: Grossly unremarkable for degree of distention. Bowel: Unremarkable. Normal appendix is visualized in the right lower quadrant without findings of a ppendicitis. Peritoneum and Retroperitoneum: No ascites, free air or focal fluid collection. Lymphadenopathy: No lymphadenopathy. Abdominal Wall: Similar fat containing left inguinal hernia. Vasculature: The visualized abdominal aorta is normal in size and caliber. There is mild atheroscler otic calcification of the aorta and its branches. Evaluation of abdominal and pelvic vessels is limit ed due to lack of intravenous contrast. Pelvic Organs: Prostate is enlarged. Musculoskeletal: No aggressive focal bony lesions, acute fractures or dislocation. Degenerative garcia es. Partially visualized left femoral hardware. Similar compression deformity of L3 vertebral body. IMPRESSION: 1. No acute abdominal or pelvic findings. 2. Cholelithiasis. 3. Similar nonobstructing 4 mm left renal stone. No hydronephrosis. 4. Prostatomegaly. 5. Other chronic/ nonacute findings as above. Radiation optimization: All CT scans at this facility use at least one of these dose optimization lalo hniques: automated exposure control mA and/or kV adjustment per patient size (includes targeted exam s where dose is matched to clinical indication) or iterative reconstruction.
--- NOTE | 2024-09-21 14:52 | DVHPN2 ---
Progress Note - Dictate Date Seen: Sep 21, 2024 Medical Necessity Reason Pt with a Central, PICC or Fol: No Subjective Patient complaining of abdominal pain. He was noted to be sleeping comfortably before being awoken. He subsequently starting complaining of abdominal pain and had multiple pauses between sentences due to reflux like symptoms. Patient was later noted to be upset at discharge stating "no one ever does anything" and continues to complain of pain. Patient does not take his home PPI meds claiming they do not work. Patient has missed multiple appointments and follow ups. vital signs Vital Sign Date Time Temp Pulse Resp B/P (MAP) Pulse Ox O2 Delivery O2 Flow Rate FiO2 09/21/24 13:42 97.6 79 18 116/74 (88) 97 97.6 09/21/24 11:20 Room Air* 0 21 Total Intake and Output 09/20/24 09/20/24 09/21/24 15:00 23:00 07:00 Intake Total 60 ml 230 ml Output Total 300 ml Balance 60 ml -70 ml medications Current Medications Medications Dose Ordered Sig/Adam Route Start Time Stop Time Status Last Admin Dose Admin Sodium Chloride 1,000 ml @ 60 mls/hr [id number] IV 09/20/24 19:00 09/21/24 11:47 60 MLS/HR Acetaminophen 325 mg Q4HP PRN PO 09/20/24 19:00 09/20/24 19:57 325 MG Acetaminophen/ Hydrocodone Bitart 1 tab Q4HP PRN PO 09/20/24 19:00 09/21/24 06:40 1 TAB Nitroglycerin 0.4 mg Q5MINP PRN SL 09/20/24 19:00 Morphine Sulfate 2 mg Q30M PRN IV 09/20/24 19:00 Ipratropium [place] 0.5 mg Q6HR NEB 09/21/24 00:00 09/21/24 11:20 0.5 MG Albuterol 5 mg Q6HR NEB 09/21/24 00:00 09/21/24 11:19 5 MG Pantoprazole Sodium 40 mg DAILY@0600 PO 09/20/24 21:45 09/21/24 06:37 40 MG Sucralfate 1 gm QID@0600,1130,1700,2200 GT 09/21/24 13:30 Metoclopramide HCl 5 mg Q8HR IV 09/21/24 14:30 objective General: Normal appearance Cards: RRR Lungs: Fine bibasilar crackles, off oxygen Abdomen: Midline incision. No rebound tenderness or severe pain. laboratory and microbiology Laboratory Tests 09/21/24 05:31 Test 09/21/24 05:31 Range/Units Serum Glucose 107 H 74-106 mg/dL Problem List 1. Acute Respiratory Failure due to Pneumonia 2. KARLENE on CKD 3. Elevated D-dimer concerning for PE 4. Abdominal Pain -GI consulted for persistent epigastric pain. Pt had severely delayed gastric emptying study in 2020. EGD 03/2024 normal. Patient non-compliant. CT abdomen/pelvis does not show any acute findings. -Sucralfate added -Reglan added for delayed gastric emptying -Diet changed to clear liquid diet -Duonebs Q6H -Levaquin 500mg PO daily -Flu/COVID negative -IVF with NS @60ml/hr -Renal US ordered, wnl -VQ scan ordered -Daily CBC and CMP -Protonix 40mg daily for hx of gastritis -Full Code Plan discussed with: Patient DANIEL BATES DO Sep 21, 2024 14:52
[2024-09-21] MEDS: SUCRALFATE 1 GM/10 ML ORAL SUSP GT SCH (15:33)
[2024-09-21] MEDS: FAMOTIDINE (10MG/ML) 2ML VL IV ONE (15:34)
[2024-09-21] MEDS: METOCLOPRAMIDE HCL 5MG/ml INJ 2ml VIAL IV SCH ×2 (15:34→21:18)
--- NOTE | 2024-09-21 19:13 | DVH ---
Bilateral lower extremity venous duplex Clinical History: Elevated D dimer Comparison: None Technique: Duplex Doppler evaluation of the deep venous systems of both lower extremities from the common femora l veins to the popliteal veins including color Doppler and spectral/pulsed waveform analysis was perf ormed. Findings: RIGHT SIDE: The common femoral vein demonstrates appropriate compressibility and waveform variability. There is compressibility/patency of the great saphenous vein not visible. The femoral vein demonstrates normal proximal femoral vein. The mid superficial femoral vein is not visible. The deep femoral vein demonstrates appropriate compressibility and waveform variability. The popliteal vein demonstrates appropriate compressibility and waveform variability. There is normal compressibility at the tibioperoneal trunk. LEFT SIDE: The common femoral vein demonstrates appropriate compressibility and waveform variability. There is compressibility/patency of the great saphenous vein not visible. The femoral vein demonstrates mid superficial femoral vein not visible. Proximal vein appeared norm al The deep femoral vein demonstrates appropriate compressibility and waveform variability. The popliteal vein demonstrates appropriate compressibility and waveform variability. There is normal compressibility at the tibioperoneal trunk. Impression: 1. The saphenous vein was not visible bilaterally. 2. The mid superficial femoral vein was not visible bilaterally. 3. There was no findings of thrombus in veins which were visible. 4. Patient was noncooperative
[2024-09-22] VITALS (9 sets, daily range): BP systolic 113–133; BP diastolic 57–95; PULSE 60–85; RESP 16–18; TEMP 97.1–98.1; O2SAT 91–100
--- NOTE | 2024-09-22 10:05 | ECG ---
[facility] Test Date: 2024-09-20 Test Time: 15:43:45 Pat Name: SHARDA MACDONALD Department: ED Room: 0245 A Gender: M Group Home Manager: charissa : 1945 Requested By: JENNIFER RUIZ Order Number: [id number] Reading MD: Matthieu Gomez Measurements Intervals [place] Rate: 98 P: 0 PA: 0 QRS: -75 QRSD: 168 T: 25 QT: 384 QTc: 491 Interpretive Statements Sinus tachycardia WITH PREMATURE ATRIAL CONTRACTIONS Ventricular premature complex RBBB and LAFB Electronically Signed On 09-25-2024 13:15:45 PDT by Matthieu Gomez Please click the below link to view image of tracing.
[2024-09-22] MEDS ORDERED: METO10TA4 PO (10:32)
--- NOTE | 2024-09-22 13:50 | DVH ---
EXAM: NM NM VQ SCAN HISTORY: PULMONARY EMBOLISM COMPARISON: None TECHNIQUE: Following the administration of the ventilation agent, standard projections of the lungs were acquired. The same images were repeated after administration of the perfusion agent. Findings: Ventilation images demonstrate homogenous distribution of radiotracer throughout both lungs. Perfusion images demonstrate homogeneous distribution of radiotracer throughout both lungs. No periph eral wedge-shaped moderate or large subsegmental or segmental mismatched perfusion defects to suggest acute pulmonary embolism. Impression: 1. Based on PIOPED criteria, low probability for pulmonary embolism.
== END 2024-09-22 14:58 | disposition home or self-care (01) | DRG 177 ==
LOC: ER 15:34 → EDBD 15:34 → OVERFLOW 18:49 → EAST 22:19
PROVIDERS: ADMIT Student in an Organized Health Care Education/Training Program; ATTEND Student in an Organized Health Care Education/Training Program
DX: J15.69 Pneumonia due to other Gram-negative bacteria (principal); J96.01 Acute respiratory failure with hypoxia; N17.0 Acute kidney failure with tubular necrosis; J15.9 Unspecified bacterial pneumonia; E11.22 Type 2 diabetes mellitus with diabetic chronic kidney disease; Z20.822 Contact with and (suspected) exposure to COVID-19; I12.9 Hypertensive chronic kidney disease with stage 1 through stage 4 chronic kidney disease, or unspecified chronic kidney disease; N18.9 Chronic kidney disease, unspecified; J06.9 Acute upper respiratory infection, unspecified; E11.43 Type 2 diabetes mellitus with diabetic autonomic (poly)neuropathy; K31.84 Gastroparesis; I48.91 Unspecified atrial fibrillation; G89.29 Other chronic pain; K21.9 Gastro-esophageal reflux disease without esophagitis; Z79.899 Other long term (current) drug therapy; Z82.0 Family history of epilepsy and other diseases of the nervous system; Z91.199 Patient's noncompliance with other medical treatment and regimen due to unspecified reason; Z87.442 Personal history of urinary calculi
CPT/HCPCS: 36415; 71045; 74176; 76775; 78582; 80053; 80307; 83036; 83605; 83690; 83880; 85025; 85379; 87081; 87426; 87804; 93005; 93970; 94640; 97110; 97116; 97163; 97530; 99291; G0378; J3490

== ENCOUNTER 2025-02-05 21:49 | Emergency (ER) | payer OTHER, MEDICAID ==
[~2025-02-05] VITALS: Ht 175.3 cm; Wt 91.0 kg
[~2025-02-05 21:49] MED LIST changes: +AZIT-185 PO; +METO10TA4 PO; -OMEP-434 PO; -PRED20TA2 PO; +SUCR1SUS26 PO
--- NOTE | 2025-02-05 23:34 | DVH ---
EXAMINATION: XY L RIB X RAY INDICATION: Fall/trauma COMPARISON: XY CHEST PORTABLE on DOS: 09/20/24, CT CT AB PEL WO CON-NO ORAL OR IV on DOS: 12/28/23, XY CHEST PORTABLE on DOS: 12/28/23, XY CHEST PORTABLE on DOS: 06/10/23, CHEST PORTABLE on DOS: 03/06/22 TECHNIQUE: 4 views FINDINGS: Patchy left basilar opacity appears to correspond to finding on prior CT, likely chronic bronchiectas is/fibrosis with multiple centrilobular airspace cysts. No pleural effusion or significant pneumothor ax. Normal cardiomediastinal silhouette. Possibly nondisplaced, nonacute fracture of a left lateral inferior rib, approximately the 9th rib. IMPRESSION: 1. No acute cardiopulmonary disease. 2. Possible left lateral 9th rib fracture, correlate for point tenderness.
[2025-02-06] MEDS ORDERED: HYDR-4902 PO (00:12)
--- NOTE | 2025-02-06 00:13 | ED.PDOC ---
Arvind. trauma (HPI) HPI Comments This patient is an 79-year-old male who was brought by EMS today for evaluation of left-sided rib pain concerns status post ground level fall two days ago. Patient states he had a mechanical ground level fall and struck his left-sided ribs. Patient arrives with a rib pain, but declined any pain medication other than [employer]. Patient was hypertensive at arrival. Chief Complaint: Rib Pain Time Seen by MD: 22:04 Primary Care Provider: REHANA Reviewed notes: Nurses Notes, Childbirth Educator Notes Allergies: Coded Allergies: NO KNOWN ALLERGIES (Unverified , 02/13/20) Home Meds Active Scripts Hydrocodone-Acetaminophen (Hydrocodone Bitartrate/AC 5-325 mg) 1 Tab Tab, 1 TAB PO Q6HP PRN, #15 TAB Prov:JENNIFER RUIZ PAC 02/06/25 Metoclopramide HCl (Metoclopramide Hydrochlor) 10 Mg Tab, 10 MG PO TID, #30 TAB 0 Refills Prov:DANIEL BATES DO 09/22/24 Sucralfate (CARAFATE SUSP) 1 Gm/10 Ml Ss, 10 ML PO QID, #1200 ML 3 Refills Prov:DANIEL BATES DO 09/21/24 Sucralfate (CARAFATE) 1 Gm Tab, 1 GM OR Q6HP PRN, #30 TAB 1 Refill Prov:DANIEL BATES DO 09/21/24 Pantoprazole Sodium Sesquihydr (Protonix) 40 Mg Tab, 40 MG PO DAILY for 30 Days, #30 TAB 0 Refills Prov:DANIEL BATES DO 09/21/24 Azithromycin (ZITHROMAX TABLET) 250 Mg Tb, 250 MG PO DAILY for 5 Days, #6 TAB 0 Refills Take 2 tablets on day one followed by 1 tablet daily. Prov:DANIEL BATES DO 09/21/24 Ondansetron Odt 4MG Tab (ZOFRAN PO) 4 Mg Tb, 4 MG PO TID, #15 TAB ODT TAB-DISSOLVE IN MOUTH, THEN SWALLOW Prov:ROSALES VERONICA MD 12/28/23 Acetaminophen (Tylenol) 325 Mg Cap, 650 MG PO Q4HP PRN, #30 CAP Prov:ROSALES VERONICA MD 12/28/23 Reported Medications Chlorpromazine Hcl (Chlorpromazine Hcl) 25 Mg Tab, 25 MG PO TID, MG 01/28/21 Information Source: Patient, Emergency Med Personnel Mode of Arrival: EMS Severity: Moderate Timing: Days Duration: Since onset Prehospital treatment: None Location: Other (Left-sided rib) Location of laceration: None Mechanism: Fall Associated signs and symtoms: None Past Medical History PAST MEDICAL HISTORY: DM, Gallstones, GERD, HTN, Kidney Stones Surgical History: Appendectomy, Hernia Repair Family History Family History: No family hx of Cancer, No family hx of DM Social History Smoker: Non-Smoker Alcohol: Denies ETOH Use Drugs: Denies Drug Use Lives In: Home Constitutional: denies: chills, diaphoresis, fatigue, fever, malaise, sweats, weakness, others EENTM: denies: blurred vision, double vision, ear bleeding, ear discharge, ear drainage, ear pain, ear ringing, eye pain, eye redness, hearing loss, mouth pain, mouth swelling, nasal discharge, nose bleeding, nose congestion, nose pain, photophobia, tearing, throat pain, throat swelling, voice changes, others Respiratory: denies: cough, hemoptysis, orthopnea, SOB at rest, shortness of breath, SOB with excertion, stridor, wheezing, others Cardiovascular: denies: chest pain, dizzy spells, diaphoresis, Dyspnea on exertion, edema, irregular heart beat, left arm pain, lightheadedness, palpitations, PND, syncope, others Gastrointestinal: denies: abdomen distended, abdominal pain, blood streaked bowels, constipated, diarrhea, dysphagia, difficulty swallowing, hematemesis, melena, nausea, poor appetite, poor fluid intake, rectal bleeding, rectal pain, vomiting, others Genitourinary: denies: burning, dysuria, flank pain, frequency, hematuria, incontinence, penile discharge, penile sore, pain, testicle pain, testicle swelling, urgency, others Neurological: denies: dizziness, fainting, headache, left sided numbness, left sided weakness, numbness, paresthesia, pre-existing deficit, right sided numbness, right sided weakness, seizure, speech problems, tingling, tremors, weakness, others Musculoskeletal: reports: others (Left-sided rib pain); denies: back pain, go ut, joint pain, joint swelling, muscle pain, muscle stiffness, neck pain Integumetry: denies: bruises, change in color, change in hair/nails, dryness, laceration, lesions, lumps, rash, wounds, others Allergic/Immunocompromised: denies: Difficulty Healing, Frequent Infections, Hives, Itching, others Hematologic/Lymphatic: denies: anemia, blood clots, easy bleeding, easy bruising, swollen glands, others Endocrine: denies: excessive hunger, excessive sweating, excessive thirst, excessive urination, flushing, intolerance to cold, intolerance to heat, unexplained weight gain, unexplained weight loss, others Psychiatric: denies: anxiety, bipolar disorder, depression, hopeless, panic disorder, schizophrenia, sleepless, suicidal, others Physical Exam General Appearance: Moderate Distress ([id number] distress due to rib pain concerns.), Normal HEENT: Normal ENT Inspection, Pharynx Normal, TMs Normal Neck: Full Range of Motion, Non-Tender, Normal, Normal Inspection Respiratory: Lungs Clear, No Accessory Muscle Use, No Respiratory Distress, Normal Breath Sounds, Other (Diffuse left-sided rib pain between the midclavicular and mid axillary line. Tenderness to palpation throughout ribs 7, 8, 9 and 10. Very mild ecchymosis appreciated. No definitive crepitus.) Cardiovascular: No Edema, No JVD, No Murmur, No Gallop, Normal Peripheral Pulses, Regular Rate/Rhythm Breast Exam: Deferred Gastrointestinal: No Organomegaly, Non Tender, No Pulsatile Mass, Normal Bowel Sounds, Soft Genitalia: Deferred Pelvic: Deferred Rectal: Deferred Extremities: No calf tenderness, Normal capillary refill, Normal inspection, Normal range of motion, Non-tender, No pedal edema Neurologic: Alert Cerebellar Function: NOT DONE Reflexes: NOT DONE Skin: Dry, Normal Color, Warm Lymphatic: No Adenopathy Was a procedure done? Was a procedure done?: No Differential Diagnosis Multiple Trauma: Other (Rib fracture, rib contusion) X-Ray, Labs, Meds, VS Vital Signs Date Time Temp Pulse Resp B/P (MAP) Pulse Ox O2 Delivery O2 Flow Rate FiO2 02/05/25 21:49 98.1 82 20 151/99 99 98.1 X-Ray, Labs, Meds, VS Comment All studies performed the ED were evaluated by me personally. Rib series revealed a rib fracture on rib nine. Advised patient utilize Tylenol and or Motrin as needed for pain relief. Nursing attempted to discharge the patient, but he was very upset that he did not get additional assistance with his chronic abdominal pain. I spent several minutes discussing the patient's concerns with him. Advised that the best I can do would be to have social media marketing analyst consult with him in the morning and hopefully aid him in establishing follow up with the proper providers. Patient agreed to stay overnight under observation for that consultation. Time of 1ST Reevaluation: 00:11 Reevaluation 1ST: Unchanged Consultation: PCP Patient Education/Counseling: Diagnosis, Treatment Family Education/Counseling: Diagnosis, Treatment Departure 1 Departure Time of Disposition: 00:11 Impression: Primary Impression: Left rib fracture Disposition: HOME / SELF CARE / HOMELESS Condition: Stable Additional Instructions: Advised pain medication as needed for symptomatic relief. e-Prescriptions Hydrocodone-Acetaminophen (Hydrocodone Bitartrate/AC 5-325 mg) 1 Tab Tab 1 TAB PO Q6HP PRN, #15 TAB Prov: JENNIFER RUIZ PAC 02/06/25 Discharged With: Self, Friend Critical Care Note Critical Care Time?: No Stability Stability form required: No Heart Score Heart Score: Heart Score Response (Comments) Value History N/A 0 EKG N/A 0 Age N/A 0 Risk Factors N/A 0 Troponin N/A 0 Total 0 JENNIFER RUIZ PAC Feb 06, 2025 00:13
[2025-02-06] MEDS ORDERED: HYDROcodone-ACET 10/325MG TAB PO ONE (11:00)
[2025-02-06] MEDS: KETOROLAC TROMETH 60MG/2ML VIAL IM ONE (11:23)
[2025-02-06] MEDS: HYDROcodone-ACET 5/325MG TAB PO ONE (11:23)
[2025-02-06 12:59] VITALS: BP 135/83; TEMP 97.5
[2025-02-06 13:26] VITALS: PULSE 86; RESP 18; O2SAT 98
== END 2025-02-07 13:26 | disposition home or self-care (01) ==
LOC: ER 21:49 → EDBD 21:49 → ER 02-07 13:26
DX: S22.32XA Fracture of one rib, left side, initial encounter for closed fracture (principal); I10 Essential (primary) hypertension; E11.9 Type 2 diabetes mellitus without complications; Z79.899 Other long term (current) drug therapy; Z90.49 Acquired absence of other specified parts of digestive tract; Z98.890 Other specified postprocedural states; K21.9 Gastro-esophageal reflux disease without esophagitis
CPT/HCPCS: 71101; 96372; J1885

== ENCOUNTER 2025-06-27 10:34 | Emergency (ER) | payer MEDICAID, OTHER ==
[~2025-06-27] VITALS: Ht 175.3 cm; Wt 83.4 kg
[~2025-06-27 10:34] MED LIST changes: +HYDR-4902 PO
[2025-06-27 11:29] LABS: Hematocrit 41.9 % (41.0-53.0); Hemoglobin 14.0 g/dL (13.5-17.5); Mean Corpuscular Hemoglobin 31.1 pg (28.0-32.0); Mean Corpuscular Volume 92.8 fL (80.0-100.0); Nucleated Red Blood Cells % 0.1 %
[2025-06-27 11:37] LABS: Potassium 3.6 mmol/L (3.5-5.1); Sodium 142 mmol/L (136-145)
[2025-06-27 11:38] LABS: Anion Gap 9 (5-15); Calcium 8.9 mg/dL (8.7-10.4); Carbon Dioxide 25 mmol/L (20-31)
[2025-06-27 11:40] LABS: Chloride 108 mmol/L (98-107)
--- NOTE | 2025-06-27 11:41 | ED.PDOC ---
History of Present Illness HPI Comments 79 y.o male presents to the ED for a chief complaint of abdominal pain associated with nausea, vomiting and hiccups. Patient states symptoms presented over 20 years ago s/p hernia repair surgery and since has been seen multiple times at different hospitals including [facility]. Patient reports difficulty clearing his throat which is not new for him. No new symptoms present. Chief Complaint: Abdominal Pain Time Seen by MD: 11:12 Primary Care Provider: REHANA Cantor Notes: Nurses Notes, Medications, Allergies Allergies: Coded Allergies: NO KNOWN ALLERGIES (Unverified , 02/13/20) Home Meds Active Scripts Hydrocodone-Acetaminophen (Hydrocodone Bitartrate/AC 5-325 mg) 1 Tab Tab, 1 TAB PO Q6HP PRN, #15 TAB Prov:JENNIFER RUIZ PAC 02/06/25 Metoclopramide HCl (Metoclopramide Hydrochlor) 10 Mg Tab, 10 MG PO TID, #30 TAB 0 Refills Prov:DANIEL BATES DO 09/22/24 Sucralfate (CARAFATE SUSP) 1 Gm/10 Ml Ss, 10 ML PO QID, #1200 ML 3 Refills Prov:DANIEL BATES DO 09/21/24 Sucralfate (CARAFATE) 1 Gm Tab, 1 GM OR Q6HP PRN, #30 TAB 1 Refill Prov:DANIEL BATES DO 09/21/24 Pantoprazole Sodium Sesquihydr (Protonix) 40 Mg Tab, 40 MG PO DAILY for 30 Days, #30 TAB 0 Refills Prov:DANIEL BATES DO 09/21/24 Azithromycin (ZITHROMAX TABLET) 250 Mg Tb, 250 MG PO DAILY for 5 Days, #6 TAB 0 Refills Take 2 tablets on day one followed by 1 tablet daily. Prov:DANIEL BATES DO 09/21/24 Ondansetron Odt 4MG Tab (ZOFRAN PO) 4 Mg Tb, 4 MG PO TID, #15 TAB ODT TAB-DISSOLVE IN MOUTH, THEN SWALLOW Prov:ROSALES VERONICA MD 12/28/23 Acetaminophen (Tylenol) 325 Mg Cap, 650 MG PO Q4HP PRN, #30 CAP Prov:ROSALES VERONICA MD 12/28/23 Reported Medications Chlorpromazine Hcl (Chlorpromazine Hcl) 25 Mg Tab, 25 MG PO TID, MG 01/28/21 Information Source: Patient Mode of Arrival: Ambulatory Severity: Moderate Timing: Came on: Gradually Duration: Since onset Past Medical History PAST MEDICAL HISTORY: DM, Gallstones, GERD, HTN, Kidney Stones Surgical History: Appendectomy, Hernia Repair Family History Family History: No family hx of Cancer, No family hx of DM Social History Smoker: Non-Smoker Alcohol: Denies ETOH Use Drugs: Denies Drug Use Lives In: Home Constitutional: denies: chills, diaphoresis, fatigue, fever, malaise, sweats, weakness, others EENTM: denies: blurred vision, double vision, ear bleeding, ear discharge, ear drainage, ear pain, ear ringing, eye pain, eye redness, hearing loss, mouth pain, mouth swelling, nasal discharge, nose bleeding, nose congestion, nose pain, photophobia, tearing, throat pain, throat swelling, voice changes, others Respiratory: denies: cough, hemoptysis, orthopnea, SOB at rest, shortness of breath, SOB with excertion, stridor, wheezing, others Cardiovascular: denies: chest pain, dizzy spells, diaphoresis, Dyspnea on exertion, edema, irregular heart beat, left arm pain, lightheadedness, palpitations, PND, syncope, others Gastrointestinal: reports: abdominal pain, nausea, vomiting; denies: abdomen distended, blood streaked bowels, constipated, diarrhea, dysphagia, difficulty swallowing, hematemesis, melena, poor appetite, poor fluid intake, rectal bleeding, rectal pain, others Genitourinary: denies: burning, dysuria, flank pain, frequency, hematuria, incontinence, penile discharge, penile sore, pain, testicle pain, testicle swelling, urgency, others Neurological: denies: dizziness, fainting, headache, left sided numbness, left sided weakness, numbness, paresthesia, pre-existing deficit, right sided numbness, right sided weakness, seizure, speech problems, tingling, tremors, weakness, others Musculoskeletal: denies: back pain, gout, joint pain, joint swelling, muscle pain, muscle stiffness, neck pain, others Integumetry: denies: bruises, change in color, change in hair/nails, dryness, laceration, lesions, lumps, rash, wounds, others Allergic/Immunocompromised: denies: Difficulty Healing, Frequent Infections, Hives, Itching, others Hematologic/Lymphatic: denies: anemia, blood clots, easy bleeding, easy bruising, swollen glands, others Endocrine: denies: excessive hunger, excessive sweating, excessive thirst, excessive urination, flushing, intolerance to cold, intolerance to heat, unexplained weight gain, unexplained weight loss, others Psychiatric: denies: anxiety, bipolar disorder, depression, hopeless, panic disorder, schizophrenia, sleepless, suicidal, others All Other Systems: Reviewed and Negative Physical Exam General Appearance: Moderate Distress HEENT: Normal ENT Inspection, Pharynx Normal, TMs Normal Neck: Full Range of Motion, Non-Tender, Normal, Normal Inspection Respiratory: Chest Non-Tender, Lungs Clear, No Accessory Muscle Use, No Respiratory Distress, Normal Breath Sounds Cardiovascular: No Edema, No JVD, No Murmur, No Gallop, Normal Peripheral Pulses, Regular Rate/Rhythm Breast Exam: Deferred Gastrointestinal: No Organomegaly, Non Tender, No Pulsatile Mass, Normal Bowel Sounds, Soft Genitalia: Deferred Pelvic: Deferred Rectal: Deferred Extremities: No calf tenderness, Normal capillary refill, Normal inspection, Normal range of motion, Non-tender, No pedal edema Musculoskeletal : Apperance: Normal Neurologic: Alert, emotionally impaired teacher II-XII nml as Tested, No Motor Deficits, Normal Affect, Normal Mood, No Sensory Deficits Cerebellar Function: NOT DONE Reflexes: NOT DONE Skin: Dry, Normal Color, Warm Peripheral Pulses: 3+ Radial (R), 3+ Radial (L) Lymphatic: No Adenopathy Was a procedure done? Was a procedure done?: No EKG EKG : Pulse Rate (adult): 77 Cardiac Rhythm: Afib Differential Dx Considerations may include: Gastroenteritis, viral syndrome, dehydration X-Ray, Labs, Meds, VS Vital Signs Date Time Temp Pulse Resp B/P (MAP) Pulse Ox O2 Delivery O2 Flow Rate FiO2 06/27/25 12:17 97.9 10 16 141/89 (106) 96 97.9 06/27/25 11:41 77 06/27/25 10:50 77 06/27/25 10:35 97.4 120 18 119/89 96 97.4 Lab Test 06/27/25 12:37 06/27/25 11:15 Range/Units Troponin I High Sensitivity Pending 15 </=54 ng/L White Blood Count 5.7 4.4-10.8 10^3/uL Red Blood Count 4.52 4.5-5.90 10^6/uL Hemoglobin 14.0 13.5-17.5 g/dL Hematocrit 41.9 41.0-53.0 % Mean Corpuscular Volume 92.8 80.0-100.0 fL Mean Corpuscular Hemoglobin 31.1 28.0-32.0 pg Mean Corpuscular Hemoglobin Concent 33.5 32.0-36.0 g/dL Red Cell Distribution Width 13.4 11.8-14.3 % Platelet Count 135 L 140-450 10^3/uL Mean Platelet Volume 8.5 6.9-10.8 fL Neutrophils (%) (Auto) 75.8 37.0-80.0 % Lymphocytes (%) (Auto) 15.8 10.0-50.0 % Monocytes (%) (Auto) 7.2 0.0-12.0 % Eosinophils (%) (Auto) 0.7 0.0-7.0 % Basophils (%) (Auto) 0.5 0.0-2.0 % Neutrophils # (Auto) 4.3 1.6-8.6 10 ^3/uL Lymphocytes # (Auto) 0.9 0.4-5.4 10 ^3/uL Monocytes # (Auto) 0.4 0-1.3 10 ^3/uL Eosinophils # (Auto) 0 0-0.8 10 ^3/uL Basophils # (Auto) 0 0-0.2 10 ^3/uL Nucleated Red Blood Cells 0.1 % Sodium Level 142 136-145 mmol/L Potassium Level 3.6 3.5-5.1 mmol/L Chloride Level 108 H 98-107 mmol/L Carbon Dioxide Level 25 20-31 mmol/L Anion Gap 9 5-15 Blood Urea Nitrogen 16 9-23 mg/dL Creatinine 1.59 H 0.700-1.30 mg/dL Glomerular Filtration Rate Calc 43 >90 mL/min BUN/Creatinine Ratio 10.1 10.0-20.0 Serum Glucose 244 H 74-106 mg/dL Calcium Level 8.9 8.7-10.4 mg/dL Patient alert. Complaining of abdominal pain. Vitals stable. Answering questions. Blood sugar elevated. History of coronary artery disease. Explained to the patient. Continue monitoring. Time of 1ST Reevaluation: 11:38 Reevaluation 1ST: Unchanged Patient Education/Counseling: Diagnosis, Treatment, Prognosis Family Education/Counseling: No Family Present SEPSIS Sepsis Screen Date sepsis recognized/suspect: Jun 27, 2025 Time Sepsis recognized/suspect: 1041 Recent Procedure: No On Antibiotic Therapy: No Respiratory Rate >20: No Heart Rate >90: No Temp<36 C (96.8 F) or >38.3 C: No SBP <90 or MAP <65 mmHG: No New Acute Mental Status Change: No Is the patient on CPAP, BIPAP,: No Physician Orders Troponin-I Hs (06/27/25 15:00) Troponin-I Hs (06/27/25 18:00) Electrocardigram (06/27/25 11:34) Vital Signs Date Time Temp Pulse Resp B/P (MAP) Pulse Ox O2 Delivery O2 Flow Rate FiO2 06/27/25 12:17 97.9 10 16 141/89 (106) 96 97.9 06/27/25 11:41 77 06/27/25 10:50 77 06/27/25 10:35 97.4 120 18 119/89 96 97.4 Laboratory Tests Test 06/27/25 11:15 White Blood Count 5.7 10^3/uL (4.4-10.8) Departure 1 Departure Time of Disposition: 13:15 Impression: Primary Impression: Uncontrolled diabetes mellitus Qualified Codes: E13.65 - Other specified diabetes mellitus with hyperglycemia Disposition: ADMITTED INPATIENT Admit to: Med Surg Condition: Guarded Critical Care Note Critical Care Time?: No Stability Stability form required: No I personally scribed for TURNER DEMPSEY MD ([email or web address]) on 06/27/25 at 11:41. Electronically submitted by Roslyn Salas ([facility]). TURNER DEMPSEY MD Jun 27, 2025 11:41
[2025-06-27 11:43] LABS: BUN/Creatinine Ratio 10.1 (10.0-20.0); Blood Urea Nitrogen 16 mg/dL (9-23)
[2025-06-27 11:45] LABS: Glucose 244 mg/dL (74-106)
[2025-06-27 15:01] VITALS: BP 150/81; PULSE 68; RESP 17; TEMP 98.2; O2SAT 97
--- NOTE | 2025-06-29 10:08 | ECG ---
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
== END 2025-06-27 15:09 | disposition home or self-care (01) ==
LOC: ER 10:34
DX: E11.65 Type 2 diabetes mellitus with hyperglycemia (principal); I10 Essential (primary) hypertension; Z98.890 Other specified postprocedural states; Z90.49 Acquired absence of other specified parts of digestive tract; Z79.899 Other long term (current) drug therapy
CPT/HCPCS: 36415; 80048; 84484; 85025; 93005